=== PATIENT | male | born 1965 ===

== ENCOUNTER 2017-08-26 23:15 | Emergency (ER) | payer MEDICAID, OTHER ==
[2017-08-26 23:15] VITALS: BMI 27.1
--- NOTE | 2017-08-26 23:19 | ED PDOC ---
"Arrival/HPI <Zaid Ni - Last Filed: 08/26/17 23:34> - General Historian: Patient <Chidi Theodore - Last Filed: 08/27/17 15:10> - General Time Seen by Provider: 08/26/17 23:17 - History of Present Illness Narrative History of Present Illness (Text): 08/26/17 23:18 52 y/o male, pmh including dm/htn/hyperlipidemia, nkda, c/o epigastric pain and vomiting x 5 days. Pt. stated that he is insulin dependent, out of the syringes since 08/03/2017, here because he has been vomiting with epigastric pain, no night sweat, no dizziness, no tearing pain, no numbness or tingling, no rash, no dizziness, no change in vision, no other medical or psychological complaints. (Chidi Theodore) Past Medical History - Provider Review Nursing Documentation Reviewed: Yes - Infectious Disease Hx of Infectious Diseases: None - Tetanus Immunization Tetanus Immunization: Unknown - Cardiac Hx Hypertension: Yes - Pulmonary Hx Asthma: Yes - Endocrine/Metabolic Hx Diabetes Mellitus Type 2: Yes - Hematological/Oncological Hx Blood Transfusions: No Hx Blood Transfusion Reaction: No - Musculoskeletal/Rheumatological Hx Falls: No - Psychiatric Hx Depression: Yes Hx Emotional Abuse: No Hx Physical Abuse: No Hx Substance Use: No - Surgical History Hx Appendectomy: Yes Hx Inguinal Hernia Repair: Yes Hx Orthopedic Surgery: Yes (knee) - Anesthesia Hx Anesthesia Reactions: No Hx Malignant Hyperthermia: No - Suicidal Assessment Feels Threatened In Home Enviroment: No <Chidi Theodore - Last Filed: 08/27/17 15:10> Family/Social History - Physician Review Nursing Documentation Reviewed: Yes Family/Social History: Unknown Family HX Smoking Status: Current Some Days Smoker Hx Alcohol Use: No Hx Substance Use: No Substance used: marijuana Amount: 1 Hx Substance Use Treatment: No <Chidi Theodore - Last Filed: 08/27/17 15:10> Allergies/Home Meds <Zaid Ni - Last Filed: 08/26/17 23:34> <Chidi Theodore - Last Filed: 08/27/17 15:10> Allergies/Adverse Reactions: Allergies No Known Allergies Allergy (Verified 11/29/14 17:13) Home Medications: Home Meds Medication Instructions Recorded Confirmed Insulin Human Regular 0 unit SC BID 02/04/12 11/29/14 Review of Systems - Review of Systems Constitutional: absent: Fatigue, Fevers Eyes: absent: Vision Changes ENT: absent: Hearing Changes Respiratory: absent: SOB, Cough Cardiovascular: absent: Chest Pain Gastrointestinal: Abdominal Pain, Nausea, Vomiting. absent: Diarrhea Musculoskeletal: absent: Arthralgias Skin: absent: Rash Neurological: absent: Headache, Dizziness Psychiatric: absent: Anxiety, Depression <Chidi Theodore - Last Filed: 08/27/17 15:10> Physical Exam Vital Signs Reviewed: Yes Temperature: Afebrile Blood Pressure: Normal Pulse: Tachycardic Respiratory Rate: Normal Appearance: Positive for: Well-Appearing, Non-Toxic Pain Distress: Moderate Mental Status: Positive for: Alert and Oriented X 3 - Systems Exam Head: Present: Atraumatic, Normocephalic Pupils: Present: PERRL Extroacular Muscles: Present: EOMI Conjunctiva: Present: Normal Mouth: Present: Moist Mucous Membranes Neck: Present: Normal Range of Motion Respiratory/Chest: Present: Clear to Auscultation, Good Air Exchange. No: Respiratory Distress, Accessory Muscle Use Cardiovascular: Present: Regular Rate and Rhythm, Normal S1, S2. No: Murmurs Abdomen: Present: Tenderness (epigastric), Normal Bowel Sounds. No: Distention , Peritoneal Signs, Rebound, Guarding Back: Present: Normal Inspection Upper Extremity: Present: Normal Inspection. No: Cyanosis, Edema Lower Extremity: Present: Normal Inspection. No: Edema Neurological: Present: GCS=15, CN II-XII Intact, Speech Normal, Motor Func Grossly Intact, Gait Normal, Memory Normal Skin: Present: Warm, Dry, Normal Color. No: Rashes Psychiatric: Present: Alert, Oriented x 3, Normal Insight, Normal Concentration <Chidi Theodore - Last Filed: 08/27/17 15:10> Vital Signs Temp Pulse Resp BP Pulse Ox 08/27/17 03:07 98.0 F 84 18 115/80 96 08/27/17 01:25 85 18 110/82 97 08/26/17 23:25 97.7 F 107 H 18 106/78 98 Medical Decision Making <Zaid Ni - Last Filed: 08/26/17 23:34> - RAD Interpretation Concrete Fence Builder: Radiologist - EKG Interpretation Interpreted by ED Physician: Yes Type: 12 lead EKG <Chidi Theodore - Last Filed: 08/27/17 15:10> ED Course and Treatment: 08/26/17 23:32 -labs/ua/vbg -ekg -chest xray -IVF -Observe and reassess 08/27/17 02:55 -FS: 281 -EKG: NSR @ 80 BPM, no ST elevation or depression, no T wave inversion, no acute changes compared with previous ekg. -Chest xray: no active disease -Sonogram: show no acute findings -CT abdomen and pelvis: Diverticulosis.Large amount of stool in the colon. Correlation with patient's clinical history of constipation is recommended. No mucosal thickening. No other acute findings -Labs show no acute findings with no elevation of bun/creatine or wbc, no anion gap changes. -VBG show normal PH and no elevation of lactic acidosis -Pt. feels completely relief, eating and drinking well, no abdominal pain, request to be discharged home, will discharge home. Pt. has insulin medication but no syringes, will prescribe the syringes. -Discharge home with magnesium citrate, insulin syringes, pepcid, zofran, continue your insulin syringes at home, follow up with your own pmd and GI plus workplace trainer and assessor within 2 days, return to the ER for any new or worsening signs or symptoms. (Chidi Theodore) - Lab Interpretations Lab Results: 08/26/17 23:40 08/26/17 23:40 Lab Results 08/27/17 02:56: POC Glucose (mg/dL) 281 H 08/27/17 02:02: POC Glucose (mg/dL) 305 H 08/26/17 23:40: pO2 53, VBG pH 7.38, VBG pCO2 45.0, VBG HCO3 26.6, VBG Total CO2 28.0, VBG O2 Sat (Calc) 92.7 H, VBG Base Excess 1.0, VBG Potassium 4.3, Sodium 135.0, Chloride 94.0 L, Glucose 461 H*, Lactate 1.7, FiO2 21.0, Venous Blood Potassium 4.3 08/26/17 23:40: WBC 8.8, RBC 5.33, Hgb 15.7, Hct 43.6, MCV 81.8, MCH 29.5, MCHC 36.0, RDW 12.5, Plt Count 263, MPV 13.0 H, Gran % 70.4 H, Lymph % (Auto) 19.8 L , Snyder % (Auto) 7.7 H, Eos % (Auto) 1.6, Baso % (Auto) 0.5, Gran # 6.23, Lymph # 1.8, Snyder # 0.7 H, Eos # 0.1, Baso # 0.04 08/26/17 23:40: Sodium 134, Chloride 94 L, Potassium 4.1, Carbon Dioxide 26, Anion Gap 18, BUN 14, Creatinine 0.9, Est GFR ( Amer) > 60, Est GFR (Non- Af Amer) > 60, Random Glucose 455 H* D, Calcium 10.4, Magnesium 1.8, Total Bilirubin 0.9, AST 44, ALT 48, Alkaline Phosphatase 90, Lactate Dehydrogenase 701 H, Total Creatine Kinase 387 H, CK-MB (CK-2) 2.2, CK-MB (CK-2) % Cancelled, Troponin I < 0.01, NT-Pro-B Natriuret Pep 34.6, Total Protein 8.0, Albumin 4.2, Globulin 3.9, Albumin/Globulin Ratio 1.1, Lipase 30 08/26/17 23:23: POC Glucose (mg/dL) 342 H - RAD Interpretation Radiology Orders: 08/26/17 23:34 CHEST PORTABLE [RAD] Stat GALLBLADDER & PANCREAS [US] Stat 08/27/17 00:26 ABDOMEN & PELVIS [ABD & PELVIS IV CONTRAST ONLY] [CT] Stat -Chest xray: no active pulmonary disease -Sonogram: FINDINGS: Artifacts: Limited due to bowel gas shadowing. Limited due to shadowing from the ribs. Liver: The liver measures 15.5 cm. Echogenic fatty liver. Limited evaluation of the liver due to shadowing. Gallbladder: The gallbladder wall measures 1 mm.There was no right upper quadrant tenderness during the sonographic examination. Correlation with patient's pain medication status is recommended. No gallstones. Common bile duct: The common bile duct measures 4-5 mm. Pancreas: The pancreas is not well-seen. Right kidney: The right kidney measures 9.9 x 6.2 x 6.5 cm. No stones. No hydronephrosis. Aorta: The aorta was not visualized due to bowel gas. Inferior vena cava: The IVC was not visualized due to bowel gas. IMPRESSION: No acute findings. Thank you for allowing us to participate in the care of your patient. Dictated and Authenticated by: Shahriar Wilson MD 08/27/2017 1:56 AM Eastern Time ([place] & [place]) -CT abdomen and pelvis: FINDINGS: Lower thorax: There is bibasilar atelectasis. Small hiatal hernia. ABDOMEN: Liver: Fatty liver. Gallbladder and bile ducts: Unremarkable. No ductal dilation. Pancreas: Unremarkable. No mass. No ductal dilation. Spleen: Unremarkable. No splenomegaly. Adrenals: Unremarkable. No mass. Kidneys and ureters: Unremarkable. No solid mass. No hydronephrosis. Stomach and bowel: Diverticulosis.Large amount of stool in the colon. Correlation with patient's clinical history of constipation is recommended. No mucosal thickening. Appendix: The appendix is not seen. PELVIS: MING GEOVANY | Final Radiology Report CONFIDENTIALITY STATEMENT This report is intended only for use by the referring physician, and only in accordance with law. If you received this in error, call [phone]. Page 2 of 2 Bladder: Unremarkable. Reproductive: Enlarged prostate gland. ABDOMEN and PELVIS: Intraperitoneal space: Unremarkable. No free air. No significant fluid collection. Bones/joints: No acute fracture. No dislocation. Soft tissues: Unremarkable. Vasculature: Pelvic phleboliths. No abdominal aortic aneurysm. Lymph nodes: Unremarkable. No enlarged lymph nodes. IMPRESSION: No acute findings. Thank you for allowing us to participate in the care of your patient. Dictated and Authenticated by: Shahriar Wilson MD 08/27/2017 2:37 AM Eastern Time ([place] & [place]) (Chidi Theodore) - EKG Interpretation EKG Interpretation (Text): 08/27/17 01:17 EKG: NSR @ 80 BPM, no ST elevation or depression, no T wave inversion, no acute changes compared with previous ekg. (Chidi Theodore) - Medication Orders Current Medication Orders: Discontinued Medications Famotidine (Pepcid) 20 mg IVP STAT STA Stop: 08/26/17 23:35 Last Admin: 08/26/17 23:49 Dose: 20 mg IVP Administration Document 08/26/17 23:49 SRAY (Rec: 08/26/17 23:49 SARY [id number]) Charges for Administration # of IVP Administrations 1 Sodium Chloride (Sodium Chloride 0.9%) 1,000 mls @ 999 mls/hr IV .Q1H1M STA Stop: 08/27/17 00:34 Last Admin: 08/26/17 23:50 Dose: 999 mls/hr eMAR Start Stop Document 08/26/17 23:50 SARY (Rec: 08/26/17 23:51 SARY [id number]) Intravenous Solution Start Date 08/26/17 Start Time 23:50 End Date 08/27/17 End time 00:50 Total Infusion Time 60 Sodium Chloride (Sodium Chloride 0.9%) 1,000 mls @ 999 mls/hr IV .Q1H1M STA Stop: 08/27/17 03:12 Last Admin: 08/27/17 02:15 Dose: 999 mls/hr eMAR Start Stop Document 08/27/17 02:15 JOL (Rec: 08/27/17 03:11 JOL [id number]) Intravenous Solution Start Date 08/27/17 Start Time 02:15 End Date 08/27/17 End time 03:16 Total Infusion Time 61 Insulin Human Regular (Humulin R) 8 units SC STAT STA Stop: 08/27/17 00:41 Last Admin: 08/27/17 00:47 Dose: 8 units MAR Blood Glucose Document 08/27/17 00:47 JOL (Rec: 08/27/17 00:47 JOL [id number]) Blood Glucose Finger Stick Blood Glucose (70-120) 455 Subcutaneous Administrations Document 08/27/17 00:47 JOL (Rec: 08/27/17 00:47 [facility] [id number]) Injection Site MAR Injection Site Right Arm Charges for Administration # of Subcutaneous Administrations 1 Magnesium Citrate (Citrate Of Mag) 300 ml PO ONCE ONE Stop: 08/27/17 02:55 Last Admin: 08/27/17 03:11 Dose: 300 ml Morphine Sulfate (Morphine) 4 mg IVP STAT STA Stop: 08/27/17 00:47 Last Admin: 08/27/17 01:01 Dose: 4 mg MAR Pain Assessment Document 08/27/17 01:01 JOGerardo (Rec: 08/27/17 01:01 JO [id number]) Pain Reassessment Is this a pain reassessment? No Sleep Is patient sleeping during reassessment? No Presence of Pain Presence of Pain Yes Pain Scale Used Pain Scale Used Numeric Location Pain Location Body Site Abdomen Description Intensity of Pain at present 8 IVP Administration Document 08/27/17 01:01 JOGerardo (Rec: 08/27/17 01:01 MISSY [id number]) Charges for Administration # of IVP Administrations 1 Ondansetron HCl (Zofran Inj) 4 mg IVP STAT STA Stop: 08/26/17 23:35 Last Admin: 08/26/17 23:52 Dose: 4 mg IVP Administration Document 08/26/17 23:52 SARY (Rec: 08/26/17 23:52 SARY [id number]) Charges for Administration # of IVP Administrations 1 - PA / RV DETAILER / Resident Statement KRYSTIN has reviewed & agrees with the documentation as recorded. <Zaid Ni - Last Filed: 08/26/17 23:34> - PA / RV DETAILER / Resident Statement KRYSTIN has reviewed & agrees with the documentation as recorded. <Chidi Theodore - Last Filed: 08/27/17 15:10> Disposition/Present on Arrival <Zaid Ni - Last Filed: 08/26/17 23:34> - Present on Arrival Any Indicators Present on Arrival: No History of DVT/PE: No History of Uncontrolled Diabetes: Yes Urinary Catheter: No History of Decub. Ulcer: No History Surgical Site Infection Following: None - Disposition Have Diagnosis and Disposition been Completed?: Yes Disposition Time: 02:57 Patient Plan: Discharge <Chidi Theodore - Last Filed: 08/27/17 15:10> - Disposition Diagnosis: Hyperglycemia, Abdominal pain Disposition: HOME/ ROUTINE Condition: IMPROVED Additional Instructions: -Discharge home with magnesium citrate, insulin syringes, pepcid, zofran, continue your insulin syringes at home, follow up with your own pmd and GI plus workplace trainer and assessor within 2 days, return to the ER for any new or worsening signs or symptoms. Prescriptions: Famotidine [Pepcid] 20 mg PO BID #20 tab Ondansetron [Zofran] 4 mg PO Q8H PRN #10 tab PRN Reason: Nausea/Vomiting Syringe Ndl,Insul U-500,0.5ML [Insulin Syringe U-500] 1 each MC DAILY #60 disp.syrin Referrals: PCP,NO [Primary Care Provider] - [place] up [place] [facility] [place] - Follow up with primary Leodan Ballard MD [Staff Provider] - Follow up with primary Kylah Zeng MD [Medical Doctor] - Follow up with primary Forms: WORK NOTE"
[2017-08-26 23:31] VITALS: RESP 18
[2017-08-26] MEDS ORDERED: Sodium Chloride 0.9% 1,000 ML IV STA (23:34)
[2017-08-27 00:08] LABS: BASO # 0.04 K/mm3 (0.0-2.0); BASO % 0.5 % (0.0-3.0); EOS # 0.1 (0.0-0.7); EOS % 1.6 % (1.5-5.0); GRAN # 6.23 (1.4-6.5); GRAN % 70.4 % (50.0-68.0); HEMOGLOBIN 15.7 g/dL (14.0-18.0); LYMPH # 1.8 (1.2-3.4); LYMPH % 19.8 % (22.0-35.0); MEAN CELL VOLUME 81.8 fl (80.0-105.0); MEAN CORPUSCULAR HEMOGLOBIN 29.5 pg (25.0-35.0); MONO # 0.7 (0.1-0.6); MONO % 7.7 % (1.0-6.0); RBC 5.33 10^6/uL (3.5-6.1); RED CELL DISTRIBUTION WIDTH 12.5 % (11.5-14.5); WHITE BLOOD COUNT 8.8 10^3/ul (4.5-11.0)
[2017-08-27 00:26] LABS: B-TYPE NATRIURETIC PEPTIDE 34.6 pg/mL (0-450); TROPONIN I < 0.01 ng/mL
[2017-08-27 00:27] LABS: VENOUS BLOOD GAS PO2 53 mm/Hg (30-55); VENOUS BLOOD PH 7.38 (7.32-7.43)
[2017-08-27 00:34] LABS: ALB/GLOB RATIO 1.1 (1.1-1.8); ALBUMIN 4.2 g/dL (3.0-4.8); ALT/SGPT 48 U/L (7-56); AST/SGOT 44 U/L (17-59); BLOOD UREA NITROGEN 14 mg/dL (7-21); CALCIUM 10.4 mg/dL (8.4-10.5); GFR AFRICAN-AMERICAN > 60; GFR NON-AFRICAN AMERICAN > 60; LIPASE 30 U/L (23-300); MAGNESIUM 1.8 mg/dL (1.7-2.2)
[2017-08-27 00:37] LABS: CK-MB 2.2 ng/mL (0.0-3.6)
[2017-08-27] MEDS ORDERED: Insulin Regular 1 UNITS/0.01 ML ML SC STA (00:40)
[2017-08-27] MEDS ORDERED: Morphine 4 mg/ml ISec IVP STA (00:46)
[2017-08-27] MEDS ORDERED: Iohexol 350 MG/100 ML VIAL ONE (01:14)
--- NOTE | 2017-08-27 01:59 | US ---
EXAM: US Abdomen Limited, Right Upper Quadrant CLINICAL HISTORY: 52 years old, male; Pain; Abdominal pain; Generalized; Additional info: Epigastric pain TECHNIQUE: Real-time ultrasound of the right upper quadrant with image documentation. COMPARISON: No relevant prior studies available. FINDINGS: Artifacts: Limited due to bowel gas shadowing. Limited due to shadowing from the ribs. Liver: The liver measures 15.5 cm. Echogenic fatty liver. Limited evaluation of the liver due to shadowing. Gallbladder: The gallbladder wall measures 1 mm.There was no right upper quadrant tenderness during the sonographic examination. Correlation with patient's pain medication status is recommended. No gallstones. Common bile duct: The common bile duct measures 4-5 mm. Pancreas: The pancreas is not well-seen. Right kidney: The right kidney measures 9.9 x 6.2 x 6.5 cm. No stones. No hydronephrosis. Aorta: The aorta was not visualized due to bowel gas. Inferior vena cava: The IVC was not visualized due to bowel gas. IMPRESSION: No acute findings.
[2017-08-27] MEDS ORDERED: Sodium Chloride 0.9% 1,000 ML IV STA (02:12)
--- NOTE | 2017-08-27 02:37 | CT ---
EXAM: CT Abdomen and Pelvis With Intravenous Contrast CLINICAL HISTORY: 52 years old, male; Pain; Abdominal pain; Generalized; Additional info: Upper abdominal pain with nausea, vomiting and diarrhea since [place]. TECHNIQUE: Axial computed tomography images of the abdomen and pelvis with intravenous contrast. All CT scans at this facility use one or more dose reduction techniques, viz.: automated exposure control; ma/kV adjustment per patient size (including targeted exams where dose is matched to indication; i.e. head); or iterative reconstruction technique. 663 images are submitted. Coronal and sagittal reformatted images were created and reviewed. CONTRAST: 100 mL of omni 350 administered intravenously. COMPARISON: US - GALLBLADDER PANCREAS 2017-08-27 00:59 FINDINGS: Lower thorax: There is bibasilar atelectasis. Small hiatal hernia. ABDOMEN: Liver: Fatty liver. Gallbladder and bile ducts: Unremarkable. No ductal dilation. Pancreas: Unremarkable. No mass. No ductal dilation. Spleen: Unremarkable. No splenomegaly. Adrenals: Unremarkable. No mass. Kidneys and ureters: Unremarkable. No solid mass. No hydronephrosis. Stomach and bowel: Diverticulosis.Large amount of stool in the colon. Correlation with patient's clinical history of constipation is recommended. No mucosal thickening. Appendix: The appendix is not seen. PELVIS: Bladder: Unremarkable. Reproductive: Enlarged prostate gland. ABDOMEN and PELVIS: Intraperitoneal space: Unremarkable. No free air. No significant fluid collection. Bones/joints: No acute fracture. No dislocation. Soft tissues: Unremarkable. Vasculature: Pelvic phleboliths. No abdominal aortic aneurysm. Lymph nodes: Unremarkable. No enlarged lymph nodes. IMPRESSION: No acute findings.
[2017-08-27] MEDS ORDERED: Magnesium Citrate Oral SOL (300 ml) PO ONE (02:54)
[2017-08-27 03:07] VITALS: BP 115/80; PULSE 84; TEMP 98; O2SAT 96
--- NOTE | 2017-08-27 09:35 | RAD ---
HISTORY: epigastric pain COMPARISON: 09/19/2013. FINDINGS: LUNGS: The lungs are well inflated and clear. PLEURA: No significant pleural effusion identified, no pneumothorax apparent. CARDIOVASCULAR: Normal. OSSEOUS STRUCTURES: No significant abnormalities. VISUALIZED UPPER ABDOMEN: Normal. OTHER FINDINGS: None. IMPRESSION: No active pulmonary disease.
--- NOTE | 2017-08-27 19:28 | CARD ---
APPROVED REPORT EKG Measurement Heart [id number] <Conclusion> Normal sinus rhythm Septal infarct, age undetermined Subtle lateral ST elevation Abnormal ECG
== END 2017-08-27 03:30 | disposition home or self-care (01) ==
LOC: ED 23:15
DX: E11.65 Type 2 diabetes mellitus with hyperglycemia (principal); R10.9 Unspecified abdominal pain; I10 Essential (primary) hypertension; E78.5 Hyperlipidemia, unspecified; Z79.4 Long term (current) use of insulin; F17.210 Nicotine dependence, cigarettes, uncomplicated
CPT/HCPCS: 71045; 74177; 76705; 80053; 82550; 82553; 82803; 82948; 83615; 83690; 83735; 83880; 84484; 85025; 93005; 96361; 96374; 96375; 99285; J2270; J2405; J7040; Q9967

== ENCOUNTER 2017-08-28 22:29 | Inpatient (IN) | payer MEDICAID, OTHER ==
--- NOTE | 2017-08-29 00:22 | ED PDOC ---
Arrival/HPI <Zaid Ni - Last Filed: 08/29/17 04:04> - General Historian: Patient, Caregiver EM Caveat: Acuity of Condition - History of Present Illness Time/Duration: Prior to Arrival Symptom Onset: Gradual Symptom Course: Unchanged Quality: Aching, Stabbing, Burning Severity Level: Moderate, Severe Activities at Onset: Rest Context: Home <Neelima Parker - Last Filed: 08/29/17 11:11> - General Chief Complaint: Abdominal Pain Time Seen by Provider: 08/28/17 22:37 - History of Present Illness Narrative History of Present Illness (Text): 08/29/17 00:16 52 y/o male, who presents with abdominal pain and vomiting x 2 days. Pt was evaluated in the ED 2 days ago for similar symptoms and poor glucose control. Pt. is insulin dependent, but has not received insulin due to lack of 'correct' syringes despite receiving a script for them last visit. Pt's chief complaint is acute and shrp stomach pain that has not resolved since last visit and an inability to pass stool. He states he has been vomiting with right lower quadrant pain, no night sweat, no dizziness, no tearing pain, no numbness or tingling, no rash, no dizziness, no change in vision, no other medical or psychological complaints. Pt was given Ranitidine and Zofran last visit and told to follow up with a specialist, although he has not. Pt reports stomach cancer 4 yrs ago and was treated with radiation. 08/29/17 03:39 (Neelima Parker) Past Medical History - Provider Review Nursing Documentation Reviewed: Yes - Travel History Have you recently traveled outside [place] w/in the past 3 mons?: No - Infectious Disease Hx of Infectious Diseases: None - Tetanus Immunization Tetanus Immunization: Unknown - Cardiac Hx Hypertension: Yes - Pulmonary Hx Asthma: Yes - Endocrine/Metabolic Hx Diabetes Mellitus Type 2: Yes - Hematological/Oncological Hx Blood Transfusions: No Hx Blood Transfusion Reaction: No - Musculoskeletal/Rheumatological Hx Falls: No - Psychiatric Hx Depression: Yes Hx Substance Use: No - Surgical History Hx Appendectomy: Yes Hx Orthopedic Surgery: Yes (knee) - Anesthesia Hx Anesthesia Reactions: No Hx Malignant Hyperthermia: No - Suicidal Assessment Feels Threatened In Home Enviroment: No <Neelima Parker - Last Filed: 08/29/17 11:11> Family/Social History - Physician Review Nursing Documentation Reviewed: Yes Family/Social History: No Known Family HX Smoking Status: Current Some Days Smoker Hx Alcohol Use: No Hx Substance Use: No Substance used: marijuana Amount: 1 Hx Substance Use Treatment: No <KeithNeelima Carrillo - Last Filed: 08/29/17 11:11> Allergies/Home Meds <Zaid Ni - Last Filed: 08/29/17 04:04> <Neelima Parker - Last Filed: 08/29/17 11:11> Allergies/Adverse Reactions: Allergies No Known Allergies Allergy (Verified 11/29/14 17:13) Home Medications: Home Meds Medication Instructions Recorded Confirmed Atorvastatin [Lipitor] 10 mg PO DIN 08/28/17 08/28/17 Insulin Regular [HumuLIN R] 8 units SC BID 08/28/17 08/28/17 Insulin Human NPH [Humulin N] 15 units SC DIN 08/28/17 08/28/17 Lisinopril [Zestril] 10 mg PO DAILY 08/28/17 08/28/17 metFORMIN [glucOPHAGE] 500 mg PO BID 08/28/17 08/28/17 Review of Systems - Physician Review All systems were reviewed & negative as marked: Yes - Review of Systems Constitutional: Normal Eyes: Normal ENT: Normal Respiratory: Normal Cardiovascular: Normal Gastrointestinal: Abdominal Pain (RLQ), Stool Changes, Constipation, Nausea, Vomiting (specs of blood in vomit), Appetite Changes Genitourinary Male: Normal Musculoskeletal: Normal Skin: Normal Neurological: Normal Endocrine: Normal Hemo/Lymphatic: Normal Psychiatric: Normal <KeithNeelima Carrillo - Last Filed: 08/29/17 11:11> Physical Exam Vital Signs Reviewed: Yes Temperature: Afebrile Blood Pressure: Normal Pulse: Regular Respiratory Rate: Normal Appearance: Positive for: Non-Toxic, Uncomfortable Pain Distress: Moderate Mental Status: Positive for: Alert and Oriented X 3 Finger Stick Blood Glucose: 346 - Systems Exam Head: Present: Atraumatic, Normocephalic Pupils: Present: PERRL Extroacular Muscles: Present: EOMI Conjunctiva: Present: Normal Mouth: Present: Moist Mucous Membranes Neck: Present: Normal Range of Motion Respiratory/Chest: Present: Clear to Auscultation, Good Air Exchange. No: Respiratory Distress, Accessory Muscle Use Cardiovascular: Present: Regular Rate and Rhythm, Normal S1, S2. No: Murmurs Abdomen: Present: Tenderness, Distention, Normal Bowel Sounds, Rebound. No: Peritoneal Signs, Guarding, McBurney's Point Tender, Rovsing's Sign Present, Hernias, Feeding Tubes, Ostomy Tubes, Mass/Organomegaly, Scars, Other Rectal: Present: Normal Rectal Tone Back: Present: Normal Inspection Upper Extremity: Present: Normal Inspection. No: Cyanosis, Edema Lower Extremity: Present: Normal Inspection. No: Edema Neurological: Present: GCS=15, CN II-XII Intact, Speech Normal Skin: Present: Warm, Dry, Normal Color. No: Rashes Psychiatric: Present: Alert, Oriented x 3, Normal Insight, Normal Concentration <Neelima Parker - Last Filed: 08/29/17 11:11> Vital Signs Temp Pulse Resp BP Pulse Ox 08/29/17 05:30 75 18 114/64 100 08/29/17 03:41 97.1 F L 77 18 138/105 H 100 08/28/17 22:30 90 18 135/85 100 Medical Decision Making <Zaid Ni - Last Filed: 08/29/17 04:04> Re-evaluation Time: 01:00 Reassessment Condition: Unchanged (pain not managed well) - Lab Interpretations I have reviewed the lab results: Yes (Glucose 396) - RAD Interpretation Structural Iron Worker: Radiologist <Neelima Parker - Last Filed: 08/29/17 11:11> ED Course and Treatment: 08/29/17 00:22 52 y/o male, who presents with abdominal pain and vomiting x 2 days. Plan: cbc, cmp, ua, CT abdominal and pelvis Iv fluids pain and emesis management 08/29/17 00:52 Despite toradol 30mg ivp and morphine 4mg ivp, pt continues to have intractable abdominal pain Blood glucose of 396 on labs, 6 units of reg insulin administered Dr. Jefferson contacted and resident notified; admission to med/surg for observation and further evaluation (Neelima Parker) - Lab Interpretations Lab Results: 08/28/17 22:55 08/28/17 22:55 Lab Results 08/29/17 03:32: POC Glucose (mg/dL) 317 H 08/29/17 00:42: POC Glucose (mg/dL) 323 H 08/28/17 22:55: Sodium 135, Potassium 4.1, Chloride 93 L, Carbon Dioxide 26, Anion Gap 21 H, BUN 22 H, Creatinine 1.0, Est GFR ( Amer) > 60, Est GFR ( Non-Af Amer) > 60, Random Glucose 396 H*, Calcium 10.4, Total Bilirubin 1.0, AST 54, ALT 45, Alkaline Phosphatase 96, Total Protein 8.7 H, Albumin 4.5, Globulin 4.2, Albumin/Globulin Ratio 1.1 08/28/17 22:55: WBC 11.0 D, RBC 5.41, Hgb 15.9, Hct 45.0, MCV 83.2, MCH 29.4, MCHC 35.3, RDW 12.6, Plt Count 268, MPV 12.9 H, Gran % 76.5 H, Lymph % (Auto) 14.6 L, [place] % (Auto) 7.3 H, Eos % (Auto) 1.3 L, Baso % (Auto) 0.3, Gran # 8.42 H, Lymph # 1.6, [place] # 0.8 H, Eos # 0.1, Baso # 0.03 - RAD Interpretation Narrative RAD Interpretations (Text): 08/29/17 11:01 CT abdominal and pelvis w/o contrast unchanged since last scan 2 days ago ( Neelima Parker) Radiology Orders: 08/29/17 00:30 ABDOMEN & PELVIS [ABD & PELVIS W/O PO OR IV CONT] [CT] Stat - Medication Orders Current Medication Orders: Atorvastatin Calcium (Lipitor) 10 mg PO DIN [facility] Docusate Sodium (Colace) 100 mg PO DAILY [facility] Last Admin: 08/29/17 09:44 Dose: Not Given Non-Admin Reason: Patient Refused Sodium Chloride (Sodium Chloride 0.9%) 1,000 mls @ 125 mls/hr IV .Q8H [facility] Last Admin: 08/29/17 04:50 Dose: 125 mls/hr eMAR Start Stop Document 08/29/17 04:50 YP (Rec: 08/29/17 05:45 [facility] Intravenous Solution Start Date 08/29/17 Start Time 04:50 Insulin Human Lispro (Humalog Low) 0 units SC ACHS [facility] PRN Reason: Protocol Last Admin: 08/29/17 09:49 Dose: Not Given Non-Admin Reason: Blood Sugar Parameter MAR Blood Glucose Document 08/29/17 09:49 (Rec: 08/29/17 09:49 [id number] Blood Glucose Finger Stick Blood Glucose (70-120) 271 Insulin Human NPH (Humulin N) 15 units SC DIN [facility] Insulin Human Regular (Humulin R) 8 units SC ACBD [facility] Last Admin: 08/29/17 09:49 Dose: Not Given Non-Admin Reason: Patient Refused MAR Blood Glucose Document 08/29/17 09:49 (Rec: 08/29/17 09:49 [place] [id number]) Blood Glucose Finger Stick Blood Glucose (70-120) 271 Lisinopril (Zestril) 10 mg PO DAILY [facility] Last Admin: 08/29/17 10:57 Dose: 10 mg Metoclopramide HCl (Reglan) 10 mg IVP Q8 [facility] Last Admin: 08/29/17 09:44 Dose: 10 mg IVP Administration Document 08/29/17 09:44 (Rec: 08/29/17 09:45 [id number] Charges for Administration # of IVP Administrations 1 Morphine Sulfate (Morphine) 1 mg IVP Q6H PRN PRN Reason: Pain, moderate (4-7) Ondansetron HCl (Zofran Inj) 2 mg IVP Q6 PRN PRN Reason: Nausea/Vomiting Pantoprazole Sodium (Protonix Ec Tab) 40 mg PO 0600 [facility] Discontinued Medications Sodium Chloride (Sodium Chloride 0.9%) 1,000 mls @ 999 mls/hr IV .Q1H1M STA Stop: 08/29/17 01:29 Last Admin: 08/29/17 00:38 Dose: 999 mls/hr eMAR Start Stop Document 08/29/17 00:38 EMA (Rec: 08/29/17 00:38 [facility] [place] [facility] [id number] Intravenous Solution Start Date 08/29/17 Start Time 00:38 Insulin Human Regular (Humulin R) 6 units SC ONCE STA Stop: 08/29/17 02:37 Last Admin: 08/29/17 03:41 Dose: 6 units Subcutaneous Administrations Document 08/29/17 03:41 YP (Rec: 08/29/17 03:41 YP [facility]) Injection Site MAR Injection Site Left Abdomen Charges for Administration # of Subcutaneous Administrations 1 Ketorolac Tromethamine (Toradol) 30 mg IVP STAT STA Stop: 08/29/17 00:53 Last Admin: 08/29/17 01:17 Dose: 30 mg MAR Pain Assessment Document 08/29/17 01:17 EMA (Rec: 08/29/17 01:18 EMA [facility] [id number]) Pain Reassessment Is this a pain reassessment? Yes Sleep Is patient sleeping during reassessment? No Presence of Pain Presence of Pain Yes Location Pain Location Body Site Abdomen IVP Administration Document 08/29/17 01:17 EMA (Rec: 08/29/17 01:18 EMA [facility] [id number]) Charges for Administration # of IVP Administrations 1 Morphine Sulfate (Morphine) 4 mg IVP STAT STA Stop: 08/29/17 02:33 Last Admin: 08/29/17 03:41 Dose: 4 mg IVP Administration Document 08/29/17 03:41 YP (Rec: 08/29/17 03:41 YP [facility]) Charges for Administration # of IVP Administrations 1 Ondansetron HCl (Zofran Inj) 4 mg IVP STAT STA Stop: 08/29/17 00:52 Last Admin: 08/29/17 01:17 Dose: 4 mg IVP Administration Document 08/29/17 01:17 EMA (Rec: 08/29/17 01:17 EMA [facility] [id number]) Charges for Administration # of IVP Administrations 1 - PA / [employer] / Resident Statement / has reviewed & agrees with the documentation as recorded. / has examined the patient and agrees with the treatment plan. <Zaid Ni - Last Filed: 08/29/17 04:04> Disposition/Present on Arrival <Zaid Ni - Last Filed: 08/29/17 04:04> - Present on Arrival Any Indicators Present on Arrival: No History of DVT/PE: No History of Uncontrolled Diabetes: Yes Urinary Catheter: No History of Decub. Ulcer: No History Surgical Site Infection Following: None - Disposition Have Diagnosis and Disposition been Completed?: Yes Disposition Time: 03:50 (resident and Dr. Jefferson contacted) Patient Plan: Observation <Neelima Parker - Last Filed: 08/29/17 11:11> - Disposition Diagnosis: Vomiting, Hyperglycemia, Intractable abdominal pain Disposition: HOSPITALIZED Patient Problems: Current Active Problems Problem Status Onset Hyperglycemia Acute Intractable abdominal pain Acute Vomiting Acute Condition: FAIR
[2017-08-29] MEDS ORDERED: Sodium Chloride 0.9% 1,000 ML IV STA (00:29)
[2017-08-29 01:02] LABS: BASO # 0.03 K/mm3 (0.0-2.0); BASO % 0.3 % (0.0-3.0); EOS # 0.1 (0.0-0.7); EOS % 1.3 % (1.5-5.0); GRAN # 8.42 (1.4-6.5); GRAN % 76.5 % (50.0-68.0); HEMOGLOBIN 15.9 g/dL (14.0-18.0); LYMPH # 1.6 (1.2-3.4); LYMPH % 14.6 % (22.0-35.0); MEAN CELL VOLUME 83.2 fl (80.0-105.0); MEAN CORPUSCULAR HEMOGLOBIN 29.4 pg (25.0-35.0); MEAN CORPUSCULAR HGB CONC 35.3 g/dl (31.0-37.0); MEAN PLATELET VOLUME 12.9 fl (7.0-11.0); MONO # 0.8 (0.1-0.6); MONO % 7.3 % (1.0-6.0); RBC 5.41 10^6/uL (3.5-6.1); RED CELL DISTRIBUTION WIDTH 12.6 % (11.5-14.5)
[2017-08-29 01:42] LABS: ALB/GLOB RATIO 1.1 (1.1-1.8); ALBUMIN 4.5 g/dL (3.0-4.8); ALT/SGPT 45 U/L (7-56); AST/SGOT 54 U/L (17-59); BLOOD UREA NITROGEN 22 mg/dL (7-21); CALCIUM 10.4 mg/dL (8.4-10.5); GFR AFRICAN-AMERICAN > 60; GFR NON-AFRICAN AMERICAN > 60
--- NOTE | 2017-08-29 02:02 | CT ---
EXAM: CT Abdomen and Pelvis Without Intravenous Contrast CLINICAL HISTORY: 52 years old, male; Pain; Abdominal pain; Generalized TECHNIQUE: Axial computed tomography images of the abdomen and pelvis without intravenous contrast. All CT scans at this facility use one or more dose reduction techniques, viz.: automated exposure control; ma/kV adjustment per patient size (including targeted exams where dose is matched to indication; i.e. head); or iterative reconstruction technique. Coronal and sagittal reformatted images were created and reviewed. COMPARISON: CT - ABD PELVIS IV CONTRAST ONLY 2017-08-27 01:47 FINDINGS: Limitations: Lack of intravenous contrast. Lower thorax: Probable small hiatal hernia. Mild mural thickening vs underdistention of distal esophagus. ABDOMEN: Liver: Fatty infiltration. Gallbladder and bile ducts: No calcified stones. No ductal dilation. Pancreas: Unremarkable. No ductal dilation. Spleen: No splenomegaly. Adrenals: No mass. Kidneys and ureters: No renal calculi. No hydronephrosis. Stomach and bowel: Few scattered diverticula within colon. No associated inflammatory stranding. No definite mural thickening. No obstruction. Appendix: No findings to suggest acute appendicitis. PELVIS: Bladder: Unremarkable. No stones. Reproductive: Unremarkable as visualized. ABDOMEN and PELVIS: Intraperitoneal space: No significant fluid collection. No free air. Bones/joints: Mild degenerative changes of spine. No acute fracture. Soft tissues: Unremarkable. Vasculature: Unremarkable. No aneurysm. Lymph nodes: No pathologically enlarged lymph nodes. IMPRESSION: 1. Diverticulosis without definite CT evidence of diverticulitis. 2. Incidental/non-acute findings are described above.
[2017-08-29] MEDS ORDERED: Morphine 5 MG/ML SYRINGE IVP STA (02:32)
[2017-08-29] MEDS ORDERED: Insulin Regular 1 UNITS/0.01 ML ML SC STA (02:36)
--- NOTE | 2017-08-29 04:06 | CP.PCM.HP ---
History of Present Illness - History of Present Illness History of Present Illness: 52 y/o male with past medical history of hypertension, diabetes, hypercholestrolemia, diabetic gastroparesis, and gastric cancer presents the ED with abdominal pain and vomiting for the past 2 days. Patient states he was seen in the ED 2 days ago for similar symptoms and high blood sugar. Patient is insulin dependent, but has not received insulin due to lack of 'correct' syringes despite receiving a script for them during the last visit. Patient states that along with the stomach pain which is located in the right lower quadrant, that he has not had a bowel movement in several days. The vomiting has been non bloody, non bilious. Patient denies any chest pain, fever chills, sore throat, recent illness, diarrhea, or any other complaints at this time. PMH: hypertension, diabetes, hypercholestrolemia, diabetic gastroparesis, and gastric cancer Allergies: NKDA Social: denies alcohol or illicit drug use, occasional tobacco use Family Hx:non contributory Medications: Lipitor, Insulin, Lisinopril Present on Admission - Present on Admission Any Indicators Present on Admission: No Review of Systems - Constitutional Constitutional: absent: Chills, Fever, Headache - Respiratory Respiratory: absent: Cough - Gastrointestinal Gastrointestinal: Abdominal Pain, Vomiting Past Patient History - Infectious Disease Hx of Infectious Diseases: None - Tetanus Immunizations Tetanus Immunization: Unknown - Past Social History Smoking Status: Current Some Days Smoker - CARDIAC Hx Hypertension: Yes - PULMONARY Hx Asthma: Yes - ENDOCRINE/METABOLIC Hx Diabetes Mellitus Type 2: Yes - HEMATOLOGICAL/ONCOLOGICAL Hx Blood Transfusions: No Hx Blood Transfusion Reaction: No - MUSCULOSKELETAL/RHEUMATOLOGICAL Hx Falls: No - PSYCHIATRIC Hx Depression: Yes Hx Substance Use: No - SURGICAL HISTORY Hx Appendectomy: Yes Hx Orthopedic Surgery: Yes (knee) - ANESTHESIA Hx Anesthesia Reactions: No Hx Malignant Hyperthermia: No Meds Allergies/Adverse Reactions: Allergies Allergy/AdvReac Type Severity Reaction Status Date / Time No Known Allergies Allergy Verified 11/29/14 17:13 Physical Exam - Constitutional Appears: Non-toxic, No Acute Distress - Eye Exam Eye Exam: Normal appearance - Respiratory Exam Respiratory Exam: Clear to Auscultation Bilateral, NORMAL BREATHING PATTERN - Cardiovascular Exam Cardiovascular Exam: REGULAR RHYTHM, +S1, +S2 - GI/Abdominal Exam GI & Abdominal Exam: Distended - Extremities Exam Extremities exam: Positive for: pedal pulses present Results - Vital Signs Recent Vital Signs: Last Vital Signs Temp 97.1 F L 08/29/17 03:41 Pulse 77 08/29/17 03:41 Resp 18 08/29/17 03:41 BP 138/105 H 08/29/17 03:41 Pulse Ox 100 08/29/17 03:41 - Labs Result Diagrams: 08/28/17 22:55 08/28/17 22:55 Labs: Laboratory Results - last 24 hr 08/28/17 08/28/17 08/29/17 22:55 22:55 00:42 WBC 11.0 D RBC 5.41 Hgb 15.9 Hct 45.0 MCV 83.2 MCH 29.4 MCHC 35.3 RDW 12.6 Plt Count 268 MPV 12.9 H Gran % 76.5 H Lymph % (Auto) 14.6 L [place] % (Auto) 7.3 H Eos % (Auto) 1.3 L Baso % (Auto) 0.3 Gran # 8.42 H Lymph # 1.6 [place] # 0.8 H Eos # 0.1 Baso # 0.03 Sodium 135 Potassium 4.1 Chloride 93 L Carbon Dioxide 26 Anion Gap 21 H BUN 22 H Creatinine 1.0 Est GFR ( Amer) > 60 Est GFR (Non-Af Amer) > 60 POC Glucose (mg/dL) 323 H Random Glucose 396 H* Calcium 10.4 Total Bilirubin 1.0 AST 54 ALT 45 Alkaline Phosphatase 96 Total Protein 8.7 H Albumin 4.5 Globulin 4.2 Albumin/Globulin Ratio 1.1 08/29/17 03:32 WBC RBC Hgb Hct MCV MCH MCHC RDW Plt Count MPV Gran % Lymph % (Auto) [place] % (Auto) Eos % (Auto) Baso % (Auto) Gran # Lymph # [place] # Eos # Baso # Sodium Potassium Chloride Carbon Dioxide Anion Gap BUN Creatinine Est GFR ( Amer) Est GFR (Non-Af Amer) POC Glucose (mg/dL) 317 H Random Glucose Calcium Total Bilirubin AST ALT Alkaline Phosphatase Total Protein Albumin Globulin Albumin/Globulin Ratio Assessment & Plan - Assessment and Plan (Free Text) Assessment: 52 y/o male with past medical history of hypertension, diabetes, hypercholestrolemia, diabetic gastroparesis, and gastric cancer presents the ED with abdominal pain and vomiting for the past 2 days. Plan: 1. Abdominal Pain with Vomiting -EKG pending official read -xray pending official read -CT abdomen pelvis: Diverticulosis with no evidence of diverticulitis -NS@125 -Zofran -morphine given in ED -toradol given in ED -Reglan IV Q8 -advanced diet as tolerated -lipase pending -morphine PRN 2. DM -glucose elevated -continue to monitor -Insulin sliding scale low 3. HLD -continue home statin 4. HTN -continue home lisinopril GI/DVT -Protonix -SCD
[2017-08-29] MEDS: Sodium Chloride 0.9% 1,000 ML IV SCH ×2 (04:50→12:05)
[2017-08-29] MEDS ORDERED: Pantoprazole 40 mg EC Tab PO SCH (06:00)
[2017-08-29 06:07] LABS: PH,URINE 5.5 (4.7-8.0); URINE BILIRUBIN NEGATIVE (NEGATIVE); URINE BLOOD NEGATIVE (NEGATIVE); URINE GLUCOSE (UA) >=1000 mg/dL (NEGATIVE); URINE LEUKOCYTE ESTERASE NEGATIVE Leu/uL (NEGATIVE); URINE NITRATE NEGATIVE (NEGATIVE); URINE PROTEIN NEGATIVE mg/dL (<30 mg/dL); URINE UROBILINOGEN 0.2 E.U./dL (<1 E.U./dL)
[2017-08-29 06:11] LABS: URINE APPEARANCE CLEAR (CLEAR); URINE COLOR YELLOW (YELLOW)
[2017-08-29] MEDS ORDERED: Morphine 2 mg/ml ISec IVP PRN (06:23)
[2017-08-29] MEDS ORDERED: Insulin Lispro (HUMAlog) HIGH Coverage SC SCH (07:30)
[2017-08-29 08:40] VITALS: RESP 20
[2017-08-29] MEDS: Insulin Lispro (humaLOG) LOW Coverage SC SCH ×3 (09:49→17:22)
[2017-08-29] MEDS: Insulin Regular 1 UNITS/0.01 ML ML SC SCH ×2 (09:49→17:18)
[2017-08-29] MEDS ORDERED: POLYETHYLENE GLYCOL 3350 17 GM/Dose PACKET PO SCH (12:00)
[2017-08-29 14:01] VITALS: BMI 33.7
[2017-08-29] MEDS: Insulin Human NPH 1 UNITS/0.01 ML SC SCH (17:16)
[2017-08-29] MEDS: POLYETHYLENE GLYCOL 3350 17 GM/Dose PACKET PO SCH (17:22)
--- NOTE | 2017-08-29 23:04 | CON ---
DATE: 08/29/2017 GASTROENTEROLOGY CONSULTATION REQUESTING PHYSICIAN: Dr. Rico. REASON FOR CONSULTATION: I have been asked to see this 52-year-old male with longstanding history of poorly-controlled diabetes mellitus, hypertension, gastroparesis for many years, hypercholesterolemia, history of some type of gastric malignancy 5 years ago treated with radiation therapy with subsequent cure, comes to the hospital with 1 week of abdominal pain, vomiting. Patient states that he has not had any bowel movements in over a week. He denies any hematemesis or rectal bleeding. Patient is an insulin-dependent diabetic, but has not taken his insulin over the last week due to not having insulin syringes. Patient admits to some abdominal cramps. PAST MEDICAL HISTORY: As above. Again, he has a history of noncompliant diabetes mellitus, on insulin; hypertension; diabetic gastroparesis; gastric malignancy, treated with radiation therapy 5 years ago. SOCIAL HISTORY: He denies alcohol use. He smokes less than half pack of cigarettes per day. FAMILY HISTORY: Noncontributory. MEDICATIONS: At home include lisinopril, insulin, and Lipitor. PHYSICAL EXAMINATION: GENERAL: A well-developed male, lying in bed, in no acute distress. VITAL SIGNS: Reveal temperature of 97.8, blood pressure 136/88, heart rate of 84. BMI is 31.1. HEENT: Reveals sclerae to be white. Conjunctivae pink. Oral mucosa is moist. NECK: Supple. CHEST: Reveals lungs to be clear. HEART: Exam reveals a regular rate and rhythm. ABDOMEN: Soft. No scars, nontender, no mass. EXTREMITIES: Show no edema. LABORATORY DATA: Reveals white blood cell count 11, hemoglobin 15.9, hematocrit of 45, platelet count of 268,000. Chemistries reveal blood sugar 263, BUN 22, creatinine 1, bicarb of 26. AST, ALT, alk phos were all normal. CT scan of the abdomen and pelvis reveals diverticulosis throughout the colon. There is no evidence of gastric distention or bowel obstruction. IMPRESSION: A 52-year-old male with longstanding history of diabetic gastroparesis with a week of nausea, vomiting, abdominal pain, and constipation. CT scan of the abdomen and pelvis does not reveal a dilated stomach or small bowel obstruction. 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 Patient states that he had a repeat endoscopy after treatment and there was no evidence of recurrent disease. RECOMMENDATIONS: 1. I will increase the patient's Reglan to 10 mg IV a.c. and at bedtime. 2. I will increase his MiraLax to 17 g twice a day. 3. Slow diet advancement if his vomiting subsides. Leodan Ballard MD
[2017-08-30] MEDS: Insulin Lispro (humaLOG) LOW Coverage SC SCH ×5 (04:09→22:05)
[2017-08-30] MEDS: Sodium Chloride 0.9% 1,000 ML IV SCH ×2 (04:12→05:31)
[2017-08-30] MEDS: Insulin Regular 1 UNITS/0.01 ML ML SC SCH ×2 (08:54→16:34)
[2017-08-30] MEDS: POLYETHYLENE GLYCOL 3350 17 GM/Dose PACKET PO SCH ×2 (09:50→17:14)
--- NOTE | 2017-08-30 12:01 | CP.PCM.PN ---
<Erica Mancilla - Last Filed: 08/30/17 13:24> Subjective - Date & Time of Evaluation Date of Evaluation: 08/30/17 Time of Evaluation: 11:53 - Subjective Subjective: Erica Mancilla, PGY1, Medicine Progress Note for Dr Rico: Patient seen and examined at bedside. Pt had 2 episodes of nonbloody emesis overnight. Pt still reports lower abdominal pain and his last BM was 9 days ago. Denies fever, chills, cp, sob, leg swelling. Objective - Vital Signs/Intake and Output Vital Signs (last 24 hours): Temp Pulse Resp BP Pulse Ox 99.0 F 90 20 131/97 H 98 08/30/17 07:30 08/30/17 09:50 08/30/17 07:30 08/30/17 09:50 08/30/17 07:30 Intake and Output: 08/30/17 08/30/17 06:59 18:59 Intake Total 840 Balance 840 - Medications Medications: Current Medications Atorvastatin Calcium (Lipitor) 10 mg PO DIN [facility] TO [facility] Last Admin: 08/29/17 17:19 Dose: Not Given Bisacodyl (Dulcolax) 10 mg RC DAILY [facility] TO [facility] Docusate Sodium (Colace) 100 mg PO DAILY [facility] Last Admin: 08/30/17 09:50 Dose: 100 mg Sodium Chloride (Sodium Chloride 0.9%) 1,000 mls @ 125 mls/hr IV .Q8H [facility]END[facility] TO [facility] Last Admin: 08/30/17 05:31 Dose: 125 mls/hr Insulin Human Lispro (Humalog Low) 0 units SC [facility] PENDING SALE TO [facility] PRN Reason: Protocol Last Admin: 08/30/17 08:55 Dose: 1 units Insulin Human NPH (Humulin N) 15 units SC DIN [facility]END[facility] SALE TO [facility] Last Admin: 08/29/17 17:16 Dose: Not Given Insulin Human Regular (Humulin R) 8 units SC ACBD PEND[facility] SALE TO [facility] Last Admin: 08/30/17 08:54 Dose: 8 units Ketorolac Tromethamine (Toradol) 15 mg IVP Q6H PRN PRN Reason: Pain, moderate (4-7) Lisinopril (Zestril) 10 mg PO DAILY [facility] Last Admin: 08/30/17 09:50 Dose: 10 mg Metoclopramide HCl (Reglan) 10 mg IVP [facility] PEND[facility] SALE TO [facility] Last Admin: 08/30/17 08:57 Dose: 10 mg Ondansetron HCl (Zofran Inj) 2 mg IVP Q6 PRN PRN Reason: Nausea/Vomiting Last Admin: 08/29/17 14:44 Dose: 2 mg Pantoprazole Sodium (Protonix Ec Tab) 40 mg PO 0600 [facility] Last Admin: 08/30/17 05:25 Dose: 40 mg Polyethylene Glycol (Miralax) 17 gm PO BID [facility] Last Admin: 08/30/17 09:50 Dose: 17 gm - Constitutional Appears: Non-toxic, No Acute Distress - Head Exam Head Exam: ATRAUMATIC, NORMOCEPHALIC - Eye Exam Eye Exam: EOMI, PERRL. absent: Conjunctival injection, Scleral icterus Pupil Exam: NORMAL ACCOMODATION, PERRL - ENT Exam ENT Exam: Mucous Membranes Moist - Neck Exam Neck Exam: Full ROM - Respiratory Exam Respiratory Exam: Clear to Ausculation Bilateral, NORMAL BREATHING PATTERN. absent: Chest Wall Tenderness, Rhonchi, Wheezes, Respiratory Distress - Cardiovascular Exam Cardiovascular Exam: RRR, +S1, +S2. absent: Murmur - GI/Abdominal Exam GI & Abdominal Exam: Soft, Tenderness (TTP in suprapubic/lower abdominal area), Normal Bowel Sounds. absent: Firm, Guarding, Rigid, Mass, Rebound - Extremities Exam Extremities Exam: Normal Inspection. absent: Calf Tenderness, Pedal Edema - Back Exam Back Exam: NORMAL INSPECTION - Neurological Exam Neurological Exam: Alert, Awake, Oriented x3 - Psychiatric Exam Psychiatric exam: Agitated, Normal Affect - Skin Skin Exam: Dry, Normal Color, Warm Assessment and Plan - Assessment and Plan (Free Text) Assessment: 52 y/o male with past medical history of hypertension, diabetes, hypercholestrolemia, diabetic gastroparesis, and gastric cancer, presents to ED with lower abdominal pain and vomiting for the past 2 days: Abdominal Pain with Vomiting 2/2 constipation vs gastroparesis -lipase 26 -morphine given in ED -CT abdomen pelvis: Diverticulosis with no evidence of diverticulitis -NS@125 -Zofran prn -toradol prn -Reglan IV ACHS -GI on board. Appreciate recs. Pt had a gastric lymphoma treated with radiation 5 years ago? Recommends Reglan and increased miralax bowel regimen. -CLD. Advanced diet as tolerated -No BM in past 9 days. Avoid narcotics. -Added dulcolax daily and one time enema -Cont to monitor DM -glucose elevated. Hgb A1C 13.9 -Insulin sliding scale low. C/w insulin regimen -continue to monitor HLD -continue home statin HTN -continue home lisinopril GI/DVT -Protonix -SCD Discussed with Dr Rico. <Violeta Rico - Last Filed: 08/30/17 16:11> Objective - Vital Signs/Intake and Output Vital Signs (last 24 hours): Temp Pulse Resp BP Pulse Ox 99.0 F 90 20 131/97 H 98 08/30/17 07:30 08/30/17 09:50 08/30/17 07:30 08/30/17 09:50 08/30/17 07:30 Intake and Output: 08/30/17 08/30/17 06:59 18:59 Intake Total 960 Balance 960 - Medications Medications: Current Medications Atorvastatin Calcium (Lipitor) 10 mg PO DIN PENDING SALE TO [facility] Last Admin: 08/29/17 17:19 Dose: Not Given Bisacodyl (Dulcolax) 10 mg RC DAILY [facility]END[facility] SALE TO [facility] Last Admin: 08/30/17 13:06 Dose: 10 mg Docusate Sodium (Colace) 100 mg PO DAILY [facility]END[facility] Last Admin: 08/30/17 09:50 Dose: 100 mg Sodium Chloride (Sodium Chloride 0.9%) 1,000 mls @ 125 mls/hr IV .Q8H PEND[facility] SALE TO [facility] Last Admin: 08/30/17 05:31 Dose: 125 mls/hr Insulin Human Lispro (Humalog Low) 0 units SC [facility]END[facility] PRN Reason: Protocol Last Admin: 08/30/17 13:08 Dose: 1 units Insulin Human NPH (Humulin N) 15 units SC DIN PEND[facility] SALE [facility] Last Admin: 08/29/17 17:16 Dose: Not Given Insulin Human Regular (Humulin R) 8 units SC ACBD PEND[facility] SALE [facility] Last Admin: 08/30/17 08:54 Dose: 8 units Ketorolac Tromethamine (Toradol) 15 mg IVP Q6H PRN PRN Reason: Pain, moderate (4-7) Lisinopril (Zestril) 10 mg PO DAILY [facility] Last Admin: 08/30/17 09:50 Dose: 10 mg Metoclopramide HCl (Reglan) 10 mg IVP A[facility]END[facility] Last Admin: 08/30/17 13:07 Dose: 10 mg Ondansetron HCl (Zofran Inj) 2 mg IVP Q6 PRN PRN Reason: Nausea/Vomiting Last Admin: 08/29/17 14:44 Dose: 2 mg Pantoprazole Sodium (Protonix Ec Tab) 40 mg PO 0600 PEND[facility] S[facility] Last Admin: 08/30/17 05:25 Dose: 40 mg Polyethylene Glycol (Miralax) 17 gm PO BID PEND[facility] SALE [facility] Last Admin: 08/30/17 09:50 Dose: 17 gm - Labs Labs: 08/30/17 14:30 08/30/17 14:30 Attending/Attestation - Attestation I have personally seen and examined this patient.: Yes I have fully participated in the care of the patient.: Yes I have reviewed all pertinent clinical information, including history, physical exam and plan: Yes Notes (Text): 08/30/17 16:06 52 year old male with past medical history of hypertension, diabetes, dyslipidemia and gastroparesis who presented with complaint of abdominal pain, nausea, vomiting and constipation. CT abd/pelvis showed diverticulosis. GI is following. Patient is currently on reglan and toradol prn. He is on miralax and dulcolax with enema is also ordered for today. Still reports nausea with vomiting today, unable to advance diet from liquids at this time. Will follow up with GI recommendations. Violeta Rico MD Hospitalist.
[2017-08-30 15:08] LABS: BASO # 0.03 K/mm3 (0.0-2.0); BASO % 0.4 % (0.0-3.0); EOS # 0.1 (0.0-0.7); GRAN # 5.89 (1.4-6.5); GRAN % 72.5 % (50.0-68.0); HEMOGLOBIN 13.9 g/dL (14.0-18.0); LYMPH # 1.4 (1.2-3.4); LYMPH % 17.5 % (22.0-35.0); MEAN CELL VOLUME 83.5 fl (80.0-105.0); MEAN CORPUSCULAR HEMOGLOBIN 28.7 pg (25.0-35.0); MEAN CORPUSCULAR HGB CONC 34.3 g/dl (31.0-37.0); MEAN PLATELET VOLUME 12.2 fl (7.0-11.0); MONO # 0.7 (0.1-0.6); MONO % 8.6 % (1.0-6.0); RBC 4.85 10^6/uL (3.5-6.1); RED CELL DISTRIBUTION WIDTH 12.3 % (11.5-14.5); WHITE BLOOD COUNT 8.1 10^3/ul (4.5-11.0)
[2017-08-30 15:37] LABS: ALBUMIN 3.4 g/dL (3.0-4.8); ALT/SGPT 42 U/L (7-56); AST/SGOT 24 U/L (17-59); BLOOD UREA NITROGEN 22 mg/dL (7-21); CALCIUM 8.9 mg/dL (8.4-10.5); GFR AFRICAN-AMERICAN > 60; GFR NON-AFRICAN AMERICAN > 60
[2017-08-30] MEDS: Insulin Human NPH 1 UNITS/0.01 ML SC SCH (16:35)
--- NOTE | 2017-08-30 18:17 | PN ---
DATE: 08/30/2017 SUBJECTIVE: The patient is lying in bed. He continues to complain of lower abdominal pain and intermittent vomiting. CT scan of the abdomen on admission to the hospital was negative for any acute changes. He did have diverticulosis without any evidence of diverticulitis. There is no evidence of dilated stomach or bowel obstruction. The patient is asking for the pain medications [id number]. He states that he is nauseous but nursing does not document any episodes of vomiting. PHYSICAL EXAMINATION: VITAL SIGNS: Reveal temperature of 99, blood pressure 131/97, heart rate of 90. HEENT: Reveals sclerae to be white. Conjunctivae pink. NECK: Supple. CHEST: Lungs are clear. HEART: Reveals a regular rate and rhythm. ABDOMEN: Soft, mild suprapubic tenderness. No mass. No rebound. No guarding. EXTREMITIES: Show no edema. LABORATORY DATA: Reveal white blood cell count of 11, hemoglobin 15.9. Chemistries reveal blood sugar of 172. Serum lipase on admission to the hospital was normal. AST, ALT, alk phos were all normal. IMPRESSION: 1. Lower abdominal pain. The patient had negative urinalysis, negative CT scan. Etiology of the abdominal pain is unclear. 2. Gastroparesis. 3. Poorly-controlled diabetes mellitus. RECOMMENDATIONS: 1. I will make the patient n.p.o. for now. 2. Can advance diet if his abdominal pain improves. 3. Continue IV Reglan 10 mg before meals and at bedtime. 4. Continue PPI. Leodan Ballard MD
[2017-08-31 02:32] VITALS: BP 112/76; PULSE 76; TEMP 98.6; O2SAT 96
--- NOTE | 2017-08-31 06:54 | CP.PCM.PN ---
Subjective - Date & Time of Evaluation Date of Evaluation: 08/31/17 Time of Evaluation: 06:48 - Subjective Subjective: S:Nurse Jd called me and told that patient wants to sign out AMA, physician has been called , patient has waited for over 45 minutes, can not wait anymore. I spoke to patient . He states that he has been here for 4 days, no body is doing anything , he will go to his hospital in [place], where they will help him. Has no acute symptoms now. Medical record was reviewed. O: Last Vital Signs 3 Temp 98.6 F 08/31/17 00:29 Pulse 76 08/31/17 00:29 Resp 20 08/31/17 00:29 BP 112/76 08/31/17 00:29 Pulse Ox 96 08/31/17 00:29 Awake , alert, not in distress. Ambulating. LUNGS: Normal breathing pattern . ABD: No distension noted. A:Signing out AMA. Non compliant. P:Explained to him consequences of signing out AMA in presence of nurse Miles. Patient understood, wanted to sign out AMA, did sign papers. Objective - Vital Signs/Intake and Output Vital Signs (last 24 hours): Temp Pulse Resp BP Pulse Ox 98.6 F 76 20 112/76 96 08/31/17 00:29 08/31/17 00:29 08/31/17 00:29 08/31/17 00:29 08/31/17 00:29 Intake and Output: 08/30/17 08/31/17 18:59 06:59 Intake Total 960 0 Balance 960 0 - Medications Medications: Current Medications Atorvastatin Calcium (Lipitor) 10 mg PO DIN [facility] Last Admin: 08/30/17 17:14 Dose: 10 mg Bisacodyl (Dulcolax) 10 mg RC DAILY [facility] Last Admin: 08/30/17 13:06 Dose: 10 mg Docusate Sodium (Colace) 100 mg PO DAILY [facility] Last Admin: 08/30/17 09:50 Dose: 100 mg Sodium Chloride (Sodium Chloride 0.9%) 1,000 mls @ 125 mls/hr IV .Q8H [facility] Last Admin: 08/30/17 05:31 Dose: 125 mls/hr Insulin Human Lispro (Humalog Low) 0 units SC ACHS [facility] PRN Reason: Protocol Last Admin: 08/30/17 22:05 Dose: Not Given Insulin Human NPH (Humulin N) 15 units SC DIN [facility] Last Admin: 08/30/17 16:35 Dose: Not Given Insulin Human Regular (Humulin R) 8 units SC ACBD [facility] Last Admin: 08/30/17 16:34 Dose: Not Given Ketorolac Tromethamine (Toradol) 15 mg IVP Q6H PRN PRN Reason: Pain, moderate (4-7) Last Admin: 08/30/17 22:24 Dose: 15 mg Lisinopril (Zestril) 10 mg PO DAILY [facility] Last Admin: 08/30/17 09:50 Dose: 10 mg Metoclopramide HCl (Reglan) 10 mg IVP ACHS [facility] Last Admin: 08/30/17 21:41 Dose: 10 mg Ondansetron HCl (Zofran Inj) 2 mg IVP Q6 PRN PRN Reason: Nausea/Vomiting Last Admin: 08/29/17 14:44 Dose: 2 mg Pantoprazole Sodium (Protonix Ec Tab) 40 mg PO 0600 [facility] Last Admin: 08/30/17 05:25 Dose: 40 mg Polyethylene Glycol (Miralax) 17 gm PO BID [facility] Last Admin: 08/30/17 17:14 Dose: 17 gm - Labs Labs: 08/30/17 14:30 08/30/17 14:30
--- NOTE | 2017-08-31 16:53 | CP.PCM.DIS ---
Provider - Provider Date of Admission: 08/30/17 13:22 Attending physician: Violeta Rico MD Primary care physician: NO PRIMARY CARE PROVIDER Hospital Course - Lab Results Lab Results: Most Recent Lab Values WBC 8.1 10^3/ul (4.5-11.0) D 08/30/17 14:30 RBC 4.85 10^6/uL (3.5-6.1) 08/30/17 14:30 Hgb 13.9 g/dL (14.0-18.0) L D 08/30/17 14:30 Hct 40.5 % (42.0-52.0) L 08/30/17 14:30 MCV 83.5 fl (80.0-105.0) 08/30/17 14:30 MCH 28.7 pg (25.0-35.0) 08/30/17 14:30 MCHC 34.3 g/dl (31.0-37.0) 08/30/17 14:30 RDW 12.3 % (11.5-14.5) 08/30/17 14:30 Plt Count 220 10^3/uL (120.0-450.0) 08/30/17 14:30 MPV 12.2 fl (7.0-11.0) H 08/30/17 14:30 Gran % 72.5 % (50.0-68.0) H 08/30/17 14:30 Lymph % (Auto) 17.5 % (22.0-35.0) L 08/30/17 14:30 [place] % (Auto) 8.6 % (1.0-6.0) H 08/30/17 14:30 Eos % (Auto) 1.0 % (1.5-5.0) L 08/30/17 14:30 Baso % (Auto) 0.4 % (0.0-3.0) 08/30/17 14:30 Gran # 5.89 (1.4-6.5) 08/30/17 14:30 Lymph # (Auto) 1.4 (1.2-3.4) 08/30/17 14:30 [place] # (Auto) 0.7 (0.1-0.6) H 08/30/17 14:30 Eos # (Auto) 0.1 (0.0-0.7) 08/30/17 14:30 Baso # (Auto) 0.03 K/mm3 (0.0-2.0) 08/30/17 14:30 Sodium 134 mmol/L (132-148) 08/30/17 14:30 Potassium 4.0 mmol/L (3.6-5.0) 08/30/17 14:30 Chloride 99 mmol/L (98-107) 08/30/17 14:30 Carbon Dioxide 26 mmol/L (21-33) 08/30/17 14:30 Anion Gap 13 (10-20) 08/30/17 14:30 BUN 22 mg/dL (7-21) H 08/30/17 14:30 Creatinine 0.9 mg/dl (0.8-1.5) 08/30/17 14:30 Est GFR ( Amer) > 60 08/30/17 14:30 Est GFR (Non-Af Amer) > 60 08/30/17 14:30 POC Glucose (mg/dL) 154 mg/dL (65-110) H 08/30/17 22:03 Random Glucose 141 mg/dL (70-110) H 08/30/17 14:30 Hemoglobin A1c 13.9 % (4.2-6.5) H 08/29/17 05:35 Calcium 8.9 mg/dL (8.4-10.5) 08/30/17 14:30 Total Bilirubin 1.1 mg/dL (0.2-1.3) 08/30/17 14:30 AST 24 U/L (17-59) 08/30/17 14:30 ALT 42 U/L (7-56) 08/30/17 14:30 Alkaline Phosphatase 61 U/L (38-126) 08/30/17 14:30 Total Protein 6.9 g/dL (5.8-8.3) 08/30/17 14:30 Albumin 3.4 g/dL (3.0-4.8) 08/30/17 14:30 Globulin 3.4 gm/dL 08/30/17 14:30 Albumin/Globulin Ratio 1.0 (1.1-1.8) L 08/30/17 14:30 Lipase 26 U/L (23-300) 08/29/17 05:35 Urine Color Yellow (YELLOW) 08/29/17 05:35 Urine Appearance Clear (CLEAR) 08/29/17 05:35 Urine pH 5.5 (4.7-8.0) 08/29/17 05:35 Ur Specific [place] 1.025 (1.005-1.035) 08/29/17 05:35 Urine Protein Negative mg/dL (<30 mg/dL) 08/29/17 05:35 Urine Glucose (UA) >=1000 mg/dL (NEGATIVE) 08/29/17 05:35 Urine Ketones 15 mg/dL (NEGATIVE) H 08/29/17 05:35 Urine Blood Negative (NEGATIVE) 08/29/17 05:35 Urine Nitrate Negative (NEGATIVE) 08/29/17 05:35 Urine Bilirubin Negative (NEGATIVE) 08/29/17 05:35 Urine Urobilinogen 0.2 E.U./dL (<1 E.U./dL) 08/29/17 05:35 Ur Leukocyte Esterase Negative Edie/uL (NEGATIVE) 08/29/17 05:35 Discharge Exam - Head Exam Head Exam: ATRAUMATIC, NORMOCEPHALIC Discharge Plan - Follow Up Plan Condition: FAIR Disposition: AGAINST MEDICAL ADVICE Instructions: Diabetic Gastroparesis (DC) Additional Instructions: - Discussed with patient the risks of AMA and benefits of receiving treatment. Pt however left. Referrals: PCP,NO [Primary Care Provider] -
== END 2017-08-31 07:50 | disposition left against medical advice (07) | DRG 74 ==
LOC: ED 22:29 → ERH 08-29 04:00 → 5RSO 08-29 07:11 → OBSVTOIN 08-30 13:22
PROVIDERS: ADMIT Family Medicine; ATTEND Internal Medicine
DX: E11.43 Type 2 diabetes mellitus with diabetic autonomic (poly)neuropathy (principal); E11.65 Type 2 diabetes mellitus with hyperglycemia; K31.84 Gastroparesis; E78.00 Pure hypercholesterolemia, unspecified; E78.5 Hyperlipidemia, unspecified; F17.210 Nicotine dependence, cigarettes, uncomplicated; I10 Essential (primary) hypertension; J45.909 Unspecified asthma, uncomplicated; K57.90 Diverticulosis of intestine, part unspecified, without perforation or abscess without bleeding; K59.00 Constipation, unspecified; Z79.4 Long term (current) use of insulin; Z79.899 Other long term (current) drug therapy; Z85.028 Personal history of other malignant neoplasm of stomach; Z92.3 Personal history of irradiation; Z85.72 Personal history of non-Hodgkin lymphomas; Z90.49 Acquired absence of other specified parts of digestive tract; Z91.19 Patient's noncompliance with other medical treatment and regimen; R40.2412 Glasgow coma scale score 13-15, at arrival to emergency department

== ENCOUNTER 2017-11-06 09:38 | Emergency (ER) | payer MEDICAID, OTHER ==
[2017-11-06 09:38] VITALS: BMI 33.7
[2017-11-06 10:11] VITALS: TEMP 97.9
[2017-11-06] MEDS ORDERED: Sodium Chloride 0.9% 1,000 ML IV STA (10:28)
--- NOTE | 2017-11-06 10:32 | ED PDOC ---
Arrival/HPI - General Chief Complaint: Dizziness/Lightheaded Time Seen by Provider: 11/06/17 10:17 Historian: Patient - History of Present Illness Narrative History of Present Illness (Text): 11/06/17 10:25 52 year old male, whose PMH includes hypertension and diabetes, who presents to the emergency department complaining of food intolerance, associated with vomiting since 4 days ago. Patient reports he ran out of insulin 4 days ago and has not taken it since then. patient denies any abdominal pain, diarrhea, dysuria, shortness of breath, chest pain, headache, or other complaints. Time/Duration: < week Symptom Onset: Sudden Context: Home Past Medical History - Provider Review Nursing Documentation Reviewed: Yes - Infectious Disease Hx of Infectious Diseases: None - Tetanus Immunization Tetanus Immunization: Unknown - Cardiac Hx Cardiac Disorders: Yes Hx Hypertension: Yes - Pulmonary Hx Respiratory Disorders: Yes Hx Asthma: Yes - Neurological Hx Neurological Disorder: No - HEENT Hx HEENT Disorder: No - Renal Hx Renal Disorder: No - Endocrine/Metabolic Hx Endocrine Disorders: Yes Hx Diabetes Mellitus Type 2: Yes - Hematological/Oncological Hx Blood Disorders: Yes Hx Cancer: Yes - Integumentary Hx Dermatological Disorder: No - Musculoskeletal/Rheumatological Hx Musculoskeletal Disorders: No - Gastrointestinal Hx Gastrointestinal Disorders: Yes Hx Nausea: Yes Hx Vomiting: Yes - Genitourinary/Gynecological Hx Genitourinary Disorders: No - Psychiatric Hx Psychophysiologic Disorder: Yes Hx Depression: Yes Hx Substance Use: No - Surgical History Hx Appendectomy: Yes Hx Orthopedic Surgery: Yes (knee) - Anesthesia Hx Anesthesia: Yes Hx Anesthesia Reactions: No Hx Malignant Hyperthermia: No - Suicidal Assessment Feels Threatened In Home Enviroment: No Family/Social History - Physician Review Nursing Documentation Reviewed: Yes Family/Social History: Unknown Family HX Smoking Status: Current Some Days Smoker Hx Alcohol Use: No Hx Substance Use: No Substance used: marijuana Amount: 1 Hx Substance Use Treatment: No Allergies/Home Meds Allergies/Adverse Reactions: Allergies No Known Allergies Allergy (Verified 11/06/17 10:04) Review of Systems - Physician Review All systems were reviewed & negative as marked: Yes - Review of Systems Constitutional: absent: Fevers Respiratory: absent: SOB Cardiovascular: absent: Chest Pain Gastrointestinal: Nausea, Vomiting, Food Intolerance. absent: Diarrhea Physical Exam Vital Signs Reviewed: Yes Vital Signs Temp Pulse Resp BP Pulse Ox 11/06/17 13:10 72 18 132/78 97 11/06/17 10:06 97.9 F 88 16 117/80 100 Temperature: Afebrile Blood Pressure: Normal Pulse: Regular Respiratory Rate: Normal Appearance: Positive for: Well-Appearing, Non-Toxic, Comfortable Pain Distress: None Mental Status: Positive for: Alert and Oriented X 3 - Systems Exam Head: Present: Atraumatic, Normocephalic Pupils: Present: PERRL Extroacular Muscles: Present: EOMI Conjunctiva: Present: Normal Abdomen: Present: Normal Bowel Sounds. No: Tenderness, Distention, Peritoneal Signs, Rebound, Guarding Neurological: Present: GCS=15, CN II-XII Intact, Speech Normal Skin: Present: Warm, Dry, Normal Color. No: Rashes Psychiatric: Present: Alert, Oriented x 3, Normal Insight, Normal Concentration Medical Decision Making ED Course and Treatment: 11/06/17 Impression: 52 year old male with unremarkable physical exam complaining of food intolerance and vomiting after not taking his insulin for 4 days Plan: -- Labs -- Urinalysis -- Zofran and Sodium Chloride -- Reassess and disposition Progress Notes: 11/06/17 14:31 bicarb 28 no e/o of dka. abd soft no ttp pt requests refill nph 15 U before feeds. - Lab Interpretations Lab Results: 11/06/17 11:10 11/06/17 11:10 Lab Results 11/06/17 12:35: POC Glucose (mg/dL) 272 H 11/06/17 11:10: Sodium 133, Potassium 4.3, Chloride 94 L, Carbon Dioxide 28, Anion Gap 15, BUN 9, Creatinine 0.7 L, Est GFR ( Amer) > 60, Est GFR (Non -Af Amer) > 60, Random Glucose 355 H* D, Calcium 9.8, Total Bilirubin 0.9, AST 27, ALT 29, Alkaline Phosphatase 66, Total Protein 7.9, Albumin 4.2, Globulin 3.7, Albumin/Globulin Ratio 1.1, Lipase 47 11/06/17 11:10: PT 11.6, INR 1.01, APTT 33.6 11/06/17 11:10: WBC 6.6, RBC 5.03, Hgb 14.8, Hct 41.3 L, MCV 82.1, MCH 29.4, MCHC 35.8, RDW 12.9, Plt Count 207, MPV 12.5 H, Gran % 72.2 H, Lymph % (Auto) 18.8 L, [place] % (Auto) 5.9, Eos % (Auto) 2.6, Baso % (Auto) 0.5, Gran # 4.76, Lymph # (Auto) 1.2, [place] # (Auto) 0.4, Eos # (Auto) 0.2, Baso # (Auto) 0.03 11/06/17 10:13: POC Glucose (mg/dL) 311 H I have reviewed the lab results: Yes - Medication Orders Current Medication Orders: Discontinued Medications Sodium Chloride (Sodium Chloride 0.9%) 1,000 mls @ 1,000 mls/hr IV .Q1H [facility] Stop: 11/06/17 11:27 Last Admin: 11/06/17 11:08 Dose: 1,000 mls/hr eMAR Start Stop Document 11/06/17 11:08 [facility] (Rec: 11/06/17 11:14 [facility] [id number]) Intravenous Solution Start Date 11/06/17 Start Time 11:14 End Date 11/06/17 End time 12:14 Total Infusion Time 60 Ondansetron HCl (Zofran Inj) 4 mg IVP STAT STA Stop: 11/06/17 10:29 Last Admin: 11/06/17 11:07 Dose: 4 mg IVP Administration Document 11/06/17 11:07 [facility] (Rec: 11/06/17 11:08 [facility] [id number]) Charges for Administration # of IVP Administrations 1 - Scribe Statement The provider has reviewed the documentation as recorded by the Alphonse Hightower Provider Scribe Attestation: All medical record entries made by the Scribe were at my direction and personally dictated by me. I have reviewed the chart and agree that the record accurately reflects my personal performance of the history, physical exam, medical decision making, and the department course for this patient. I have also personally directed, reviewed, and agree with the discharge instructions and disposition. Disposition/Present on Arrival - Present on Arrival Any Indicators Present on Arrival: No History of DVT/PE: No History of Uncontrolled Diabetes: Yes Urinary Catheter: No History of Decub. Ulcer: No History Surgical Site Infection Following: None - Disposition Have Diagnosis and Disposition been Completed?: Yes Diagnosis: Hyperglycemia, Vomiting Disposition: HOME/ ROUTINE Disposition Time: 01:00 Condition: STABLE Discharge Instructions (ExitCare): Hyperglycemia, Adult (DC), Nausea and Vomiting, Adult (DC) Additional Instructions: please follow up with your doctor. return to er with worsening symptoms or concerns. Prescriptions: Insulin Human NPH [Humulin N] 15 unit SQ TID #1 ml Referrals: [facility] [Outside] - [place] up with [place] [facility] [place] - Follow up with primary Forms: [employer] (Arabic)
[2017-11-06 11:34] LABS: BASO # 0.03 K/mm3 (0.0-2.0); BASO % 0.5 % (0.0-3.0); EOS # 0.2 (0.0-0.7); EOS % 2.6 % (1.5-5.0); GRAN # 4.76 (1.4-6.5); GRAN % 72.2 % (50.0-68.0); HEMOGLOBIN 14.8 g/dL (14.0-18.0); LYMPH # 1.2 (1.2-3.4); LYMPH % 18.8 % (22.0-35.0); MEAN CELL VOLUME 82.1 fl (80.0-105.0); MEAN CORPUSCULAR HEMOGLOBIN 29.4 pg (25.0-35.0); MEAN CORPUSCULAR HGB CONC 35.8 g/dl (31.0-37.0); MEAN PLATELET VOLUME 12.5 fl (7.0-11.0); MONO # 0.4 (0.1-0.6); MONO % 5.9 % (1.0-6.0); RBC 5.03 10^6/uL (3.5-6.1); RED CELL DISTRIBUTION WIDTH 12.9 % (11.5-14.5); WHITE BLOOD COUNT 6.6 10^3/ul (4.5-11.0)
[2017-11-06 12:02] LABS: ALB/GLOB RATIO 1.1 (1.1-1.8); ALBUMIN 4.2 g/dL (3.0-4.8); ALT/SGPT 29 U/L (7-56); AST/SGOT 27 U/L (17-59); BLOOD UREA NITROGEN 9 mg/dL (7-21); CALCIUM 9.8 mg/dL (8.4-10.5); GFR AFRICAN-AMERICAN > 60; GFR NON-AFRICAN AMERICAN > 60; LIPASE 47 U/L (23-300)
[2017-11-06 12:15] LABS: INR 1.01 (0.93-1.08); PARTIAL THROMBOPLASTIN TIME 33.6 Seconds (25.1-36.5); PROTHROMBIN TIME 11.6 SECONDS (9.4-12.5)
[2017-11-06 13:22] VITALS: BP 132/78; PULSE 72; RESP 18; O2SAT 97
== END 2017-11-06 13:22 | disposition home or self-care (01) ==
LOC: ED 09:38
DX: E11.65 Type 2 diabetes mellitus with hyperglycemia (principal); R11.10 Vomiting, unspecified; I10 Essential (primary) hypertension; F17.210 Nicotine dependence, cigarettes, uncomplicated; Z79.4 Long term (current) use of insulin
CPT/HCPCS: 80053; 82948; 83690; 85025; 85610; 85730; 96361; 96374; 99285; J2405; J7040

== ENCOUNTER 2018-05-06 08:21 | Emergency (ER) | payer SELFPAY ==
[2018-05-06 08:21] VITALS: BMI 33.7
[2018-05-06] MEDS ORDERED: Morphine 4 mg/ml ISec IVP STA (08:53)
--- NOTE | 2018-05-06 09:00 | ED PDOC ---
Arrival/HPI - General Chief Complaint: Abdominal Pain Time Seen by Provider: 05/06/18 08:51 Historian: Patient - History of Present Illness Narrative History of Present Illness (Text): 05/06/18 08:55 A 53 year old male, whose past medical history includes hypertension, diabetes, hypercholestrolemia, diabetic gastroparesis, and gastric cancer, presents to the emergency department with complaint of worsening abdominal pain, 1 week duration constipation, 4 day duration vomiting, and dizziness. The patient notes that he experienced one episode of hematemesis. He states that there was a large amount of red blood in the vomitus. Since that first episode he has continued to vomit without any red blood present in the vomitus. The patient also complaints of suprapubic abdominal pain. He states that he has not moved his bowels in 7 days. The patient reports that he has been urinating normally, with some dysuria. He also reports a subjective fever yesterday. The patient denies chills, headache, diarrhea, back pain, neck pain, chest pain, shortness of breath, dyspnea on exertion, cough or any other complaint. PMD: None Time/Duration: 1 week (1 week- constipation), Other (4 days- vomiting) Symptom Onset: Gradual Symptom Course: Worsening Activities at Onset: Rest, Light Context: Home Past Medical History - Provider Review Nursing Documentation Reviewed: Yes - Infectious Disease Hx of Infectious Diseases: None - Tetanus Immunization Tetanus Immunization: Unknown - Cardiac Hx Cardiac Disorders: Yes Hx Hypertension: Yes - Pulmonary Hx Respiratory Disorders: Yes Hx Asthma: Yes - Neurological Hx Neurological Disorder: No - HEENT Hx HEENT Disorder: No - Renal Hx Renal Disorder: No - Endocrine/Metabolic Hx Endocrine Disorders: Yes Hx Diabetes Mellitus Type 2: Yes - Hematological/Oncological Hx Blood Disorders: Yes Hx Cancer: Yes - Integumentary Hx Dermatological Disorder: No - Musculoskeletal/Rheumatological Hx Musculoskeletal Disorders: No - Gastrointestinal Hx Gastrointestinal Disorders: Yes Hx Nausea: Yes Hx Vomiting: Yes Other/Comment: stomach ca - Genitourinary/Gynecological Hx Genitourinary Disorders: No - Psychiatric Hx Psychophysiologic Disorder: Yes Hx Depression: Yes Hx Substance Use: Yes - Surgical History Hx Appendectomy: Yes Hx Orthopedic Surgery: Yes (knee) - Anesthesia Hx Anesthesia: Yes Hx Anesthesia Reactions: No Hx Malignant Hyperthermia: No - Suicidal Assessment Feels Threatened In Home Enviroment: No Family/Social History - Physician Review Nursing Documentation Reviewed: Yes Family/Social History: No Known Family HX Smoking Status: Current Some Days Smoker Hx Alcohol Use: No Hx Substance Use: Yes Substance used: marijuana Amount: 1 Hx Substance Use Treatment: No Allergies/Home Meds Allergies/Adverse Reactions: Allergies No Known Allergies Allergy (Verified 11/06/17 10:04) Review of Systems - Physician Review All systems were reviewed & negative as marked: Yes - Review of Systems Constitutional: Fevers Respiratory: absent: SOB, Cough Cardiovascular: absent: Chest Pain, NUNEZ Gastrointestinal: Abdominal Pain, Vomiting. absent: Diarrhea Musculoskeletal: absent: Back Pain, Neck Pain Neurological: absent: Headache Physical Exam - Physical Exam Narrative Physical Exam (Text): 05/06/18 09:02 Gen: VS reviewed, alert, well developed, well nourished, nontoxic, moderate distress secondary to pain. ENT: Normal pharynx. Eye: EOMI, PERRL. Neck: No JVD, supple, no adenopathy. CV: Regular rate, regular rhythm, no rubs, no murmur, no gallops, S1, S2, pulses equal and strong. Pulm: No distress, clear to auscultation, no wheeze, no rhonchi, breath sounds equal, no rales. Abd: Soft, no guarding, no rebound, no rigidity, normal bowel sounds. Moderate suprapubic tenderness to palpation. Ext: No edema. Skin: Good color, no rash, no cyanosis. Psych: Responds appropriately to questions, normal affect. Neuro: Oriented x 3, CN2-12 intact grossly, motor intact, sensation intact. Vital Signs Reviewed: Yes Vital Signs Temp Pulse Resp BP Pulse Ox 05/06/18 08:30 98.8 F 57 L 18 146/86 99 05/06/18 08:21 98.8 F 57 L 18 146/82 99 Temperature: Afebrile Blood Pressure: Normal Pulse: Bradycardic Respiratory Rate: Normal Appearance: Positive for: Well-Appearing, Non-Toxic, Comfortable Pain Distress: None Mental Status: Positive for: Alert and Oriented X 3 Finger Stick Blood Glucose: 275 Medical Decision Making ED Course and Treatment: 05/06/18 09:03 Impression: A 53 year old male presents to the emergency department with a complaint of 7 day duration constipation, 4 day duration of vomiting, fever, and dizziness. Plan: -- EKG -- Abdomen/ Pelvis CT -- Abdomen X-Ray -- Labs -- Urinalysis -- Urine Culture -- Morphine and Zofran -- Reassess and disposition Prior Visits: Notes and results from previous visits were reviewed. Progress Notes: 05/06/18 12:35 patient was seen for lower abdominal pain and constipation. workup unremarkable except for constipation seen on abdominal imaging. patient remained stable thr oughout ED course. patient requested refill of his insulin. - Lab Interpretations Lab Results: Lab Results 05/06/18 08:41: POC Glucose (mg/dL) 275 H I have reviewed the lab results: Yes - RAD Interpretation Narrative RAD Interpretations (Text): 05/06/18 12:10 Abdomen/ Pelvis CT Signed By: Darryl Rivera MD Dictated Date/ Time: 05/06/18 1124 Impression: No acute intra- abdominal findings. Abdomen X-Ray Signed By: Darryl Rivera MD Dictated Date/ Time: 05/06/18 1140 Impression: Moderate constipation - EKG Interpretation EKG Interpretation (Text): 05/06/18 10:21 0836: sinus rhythm at 63 bpm, nml qrs, nml axis, low voltage, nonspecific t wave abn Interpreted by ED Physician: Yes Type: 12 lead EKG - Scribe Statement The provider has reviewed the documentation as recorded by the Scribe Carly Allan Provider Scribe Attestation: All medical record entries made by the Scribe were at my direction and personally dictated by me. I have reviewed the chart and agree that the record accurately reflects my personal performance of the history, physical exam, medical decision making, and the department course for this patient. I have also personally directed, reviewed, and agree with the discharge instructions and disposition Disposition/Present on Arrival - Present on Arrival Any Indicators Present on Arrival: No History of DVT/PE: No History of Uncontrolled Diabetes: Yes Urinary Catheter: No History of Decub. Ulcer: No History Surgical Site Infection Following: None - Disposition Have Diagnosis and Disposition been Completed?: Yes Diagnosis: Constipation Disposition: HOME/ ROUTINE Disposition Time: 12:35 Patient Plan: Discharge Patient Problems: Current Active Problems Problem Status Onset Constipation Acute Condition: STABLE Discharge Instructions (ExitCare): Constipation in Adults Additional Instructions: You must follow up with a primary care doctor for refills of your medications. GEOVANY LAI, thank you for letting us take care of you today. Your provider was Dr. Lloyd Jain and you were treated for constipation. The emergency medical care you received today was directed at your acute symptoms. If you were prescribed any medication, please fill it and take as directed. It may take se veral days for your symptoms to resolve. Return to the Emergency Department if your symptoms worsen, do not improve, or if you have any other problems. Please contact your doctor or call one of the physicians/clinics you have been referred to that are listed on the Patient Visit Information form that is included in your discharge packet. Bring any paperwork you were given at discharge with you along with any medications you are taking to your follow up visit. Our treatment cannot replace ongoing medical care by a primary care provider outside of the emergency department. Thank you for allowing the [facility] team to be part of your care today. If you had an X-Ray or CT scan: A Radiologist will review the ED reading if any change in treatment is needed we will contact you. If you had a blood, urine, or wound culture: It will take several days for the results, if any change in treatment is needed we will contact you. If you had an STI test: It will take 48 hours for the results. Please call after 1 week if you have not heard back. Prescriptions: Insulin NPH Hum/Reg Insulin Hm [Humulin 70-30 Vial] 15 units SC TID #1 sharda Magnesium Citrate [Citrate of Mag] 300 ml PO DAILY 1 Days bottle Sennosides/Docusate Sodium [Colace 2-in-1 Tablet] 2 each PO BID 7 Days #14 tablet Referrals: [facility] [Outside] - Follow up with primary Rebeca Gimenez MD [Medical Doctor] - Follow up with primary Forms: [employer] (Nigerien)
[2018-05-06 09:17] LABS: BASO # 0.05 K/mm3 (0.0-2.0); BASO % 0.8 % (0.0-3.0); EOS # 0.1 (0.0-0.7); GRAN # 4.87 (1.4-6.5); GRAN % 75.3 % (50.0-68.0); HEMOGLOBIN 11.6 g/dL (14.0-18.0); LYMPH # 1.1 (1.2-3.4); LYMPH % 16.8 % (22.0-35.0); MEAN CELL VOLUME 86.9 fl (80.0-105.0); MEAN CORPUSCULAR HEMOGLOBIN 29.3 pg (25.0-35.0); MEAN CORPUSCULAR HGB CONC 33.7 g/dl (31.0-37.0); MEAN PLATELET VOLUME 11.6 fl (7.0-11.0); MONO # 0.3 (0.1-0.6); MONO % 5.1 % (1.0-6.0); RBC 3.96 10^6/uL (3.5-6.1); RED CELL DISTRIBUTION WIDTH 13.5 % (11.5-14.5); WHITE BLOOD COUNT 6.5 10^3/ul (4.5-11.0)
[2018-05-06 09:23] LABS: VENOUS BLOOD GAS BASE EXCESS 2.2 mmol/L (0.0-2.0); VENOUS BLOOD GAS PO2 53 mm/Hg (30-55); VENOUS BLOOD PH 7.39 (7.32-7.43)
[2018-05-06 09:29] LABS: ALB/GLOB RATIO 1.1 (1.1-1.8); ALBUMIN 3.2 g/dL (3.0-4.8); ALT/SGPT 24 U/L (7-56); AST/SGOT 24 U/L (17-59); BLOOD UREA NITROGEN 20 mg/dL (7-21); CALCIUM 8.6 mg/dL (8.4-10.5); GFR NON-AFRICAN AMERICAN > 60; LIPASE 26 U/L (23-300)
[2018-05-06] MEDS ORDERED: Iohexol 350 MG/100 ML VIAL ONE (10:30)
[2018-05-06 11:18] VITALS: O2SAT 98
--- NOTE | 2018-05-06 11:27 | CT ---
Date of service: 05/06/2018 PROCEDURE: CT Abdomen and Pelvis with contrast HISTORY: lower abdominal pain COMPARISON: None. TECHNIQUE: Contrast dose: 100 cc of Omni 350 Radiation dose: Total exam DLP = 989 mGy-cm. This CT exam was performed using one or more of the following dose reduction techniques: Automated exposure control, adjustment of the mA and/or kV according to patient size, and/or use of iterative reconstruction technique. FINDINGS: LOWER THORAX: Unremarkable. LIVER: Unremarkable. No gross lesion or ductal dilatation. GALLBLADDER AND BILE DUCTS: Unremarkable. PANCREAS: Unremarkable. No gross lesion or ductal dilatation. SPLEEN: Unremarkable. ADRENALS: Unremarkable. No mass. KIDNEYS AND URETERS: Unremarkable. No hydronephrosis. No solid mass. VASCULATURE: Unremarkable. No aortic aneurysm. BOWEL: Unremarkable. No obstruction. No gross mural thickening. APPENDIX: Normal appendix. PERITONEUM: Unremarkable. No free fluid. No free air. LYMPH NODES: Unremarkable. No enlarged lymph nodes. BLADDER: Unremarkable. REPRODUCTIVE: Unremarkable. BONES: No acute fracture. OTHER FINDINGS: None IMPRESSION: No acute intra-abdominal findings
--- NOTE | 2018-05-06 11:42 | RAD ---
Date of service: 05/06/2018 HISTORY: constipation COMPARISON: 09/22/2013 FINDINGS: BOWEL: Normal. No obstruction. No free air. Moderate constipation BONES: Normal. OTHER FINDINGS: None. IMPRESSION: Moderate constipation
[2018-05-06 12:10] LABS: URINE APPEARANCE CLEAR (CLEAR); URINE BILIRUBIN NEGATIVE (NEGATIVE); URINE COLOR YELLOW (YELLOW)
[2018-05-06 12:11] LABS: PH,URINE 6.5 (4.7-8.0); URINE BLOOD NEGATIVE (NEGATIVE); URINE PROTEIN NEGATIVE mg/dL (<30 mg/dL); URINE UROBILINOGEN 0.2 E.U./dL (<1 E.U./dL)
[2018-05-06 12:12] LABS: URINE GLUCOSE (UA) >1000 mg/dL (NEGATIVE); URINE LEUKOCYTE ESTERASE NEGATIVE Leu/uL (NEGATIVE)
[2018-05-06 12:49] VITALS: BP 142/80; PULSE 62; RESP 20; TEMP 97.9
--- NOTE | 2018-05-06 16:32 | CARD ---
APPROVED REPORT Date of service: 05/06/2018 EKG Measurement Heart [id number] <Conclusion> Sinus rhythm with premature atrial complexes Cannot rule out Anterior infarct, age undetermined Abnormal ECG
== END 2018-05-06 12:47 | disposition home or self-care (01) ==
LOC: ED 08:21
DX: K59.00 Constipation, unspecified (principal)
CPT/HCPCS: 74018; 74177; 80053; 81003; 82803; 82948; 83690; 85025; 87086; 87181; 93005; 96374; 96375; 99284; J2270; J2405; Q9967

== ENCOUNTER 2018-05-17 15:58 | Emergency (ER) | payer OTHER ==
[2018-05-17] MEDS ORDERED: Magnesium Citrate Oral SOL (300 ml) PO ONE (16:18)
[2018-05-17] MEDS ORDERED: Sodium Chloride 0.9% 1,000 ML IV STA (16:26)
[2018-05-17 16:27] VITALS: TEMP 97.9; BMI 27.2
[2018-05-17] MEDS ORDERED: Mineral Oil Enema 135 ml RC ONE (16:35)
[2018-05-17 16:45] LABS: BASO # 0.04 K/mm3 (0.0-2.0); BASO % 0.5 % (0.0-3.0); EOS # 0.1 (0.0-0.7); EOS % 1.4 % (1.5-5.0); GRAN # 5.75 (1.4-6.5); GRAN % 75.7 % (50.0-68.0); HEMOGLOBIN 14.2 g/dL (14.0-18.0); LYMPH # 1.1 (1.2-3.4); LYMPH % 14.8 % (22.0-35.0); MEAN CELL VOLUME 86.8 fl (80.0-105.0); MEAN CORPUSCULAR HEMOGLOBIN 29.8 pg (25.0-35.0); MEAN CORPUSCULAR HGB CONC 34.3 g/dl (31.0-37.0); MEAN PLATELET VOLUME 12.5 fl (7.0-11.0); MONO # 0.6 (0.1-0.6); MONO % 7.6 % (1.0-6.0); RBC 4.77 10^6/uL (3.5-6.1); RED CELL DISTRIBUTION WIDTH 13.2 % (11.5-14.5); WHITE BLOOD COUNT 7.6 10^3/ul (4.5-11.0)
--- NOTE | 2018-05-17 16:49 | ED PDOC ---
Arrival/HPI <Kenia Sy - Last Filed: 05/17/18 21:10> - General Historian: Patient - History of Present Illness Narrative History of Present Illness (Text): 05/17/18 16:39 53 y/o male with past medical history of hypertension, diabetes, hypercholestrolemia, diabetic gastroparesis, and gastric cancer presents the ED with complaints of abdominal pain and hematemesis for the past 2 weeks. Patient was seen in the Emergency Department on 05/06/18 for similar complaints with no significant CT findings. However, pt had a positive urine culture and was notified via certified mail, since he could not be contact via phone. Patient reports he flew to [place] and had a hospital course there, but flew back to [place] when informed of the positive urine culture. Patient now reports associated symptoms of dizziness and constipation. Patient notes last normal bowel movement 4 days ago. Patient denies any fever, chills, diarrhea, dysuria, chest pain, shortness of breath, cough, headache,neck pain, back pain, or any other complaints. PMD: None Time/Duration: > week Symptom Onset: Gradual Symptom Course: Unchanged Quality: Aching Activities at Onset: Light Context: Home <Nikolay Wick - Last Filed: 05/19/18 12:37> - General Chief Complaint: GI Problem Time Seen by Provider: 05/17/18 16:08 Past Medical History - Provider Review Nursing Documentation Reviewed: Yes - Infectious Disease Hx of Infectious Diseases: None - Tetanus Immunization Tetanus Immunization: Unknown - Cardiac Hx Cardiac Disorders: Yes Hx Hypertension: Yes - Pulmonary Hx Respiratory Disorders: Yes Hx Asthma: Yes - Neurological Hx Neurological Disorder: No - HEENT Hx HEENT Disorder: No - Renal Hx Renal Disorder: No - Endocrine/Metabolic Hx Endocrine Disorders: Yes Hx Diabetes Mellitus Type 2: Yes - Hematological/Oncological Hx Blood Disorders: Yes Hx Cancer: Yes (stomach cancer) - Integumentary Hx Dermatological Disorder: No - Musculoskeletal/Rheumatological Hx Musculoskeletal Disorders: No - Gastrointestinal Hx Gastrointestinal Disorders: Yes Hx Nausea: Yes Hx Vomiting: Yes Other/Comment: stomach ca - Genitourinary/Gynecological Hx Genitourinary Disorders: No - Psychiatric Hx Psychophysiologic Disorder: Yes Hx Depression: Yes Hx Substance Use: No - Surgical History Hx Appendectomy: Yes Hx Orthopedic Surgery: Yes (knee) - Anesthesia Hx Anesthesia: Yes Hx Anesthesia Reactions: No Hx Malignant Hyperthermia: No - Suicidal Assessment Feels Threatened In Home Enviroment: No <Nikolay Wick - Last Filed: 05/19/18 12:37> Family/Social History - Physician Review Nursing Documentation Reviewed: Yes Family/Social History: Unknown Family HX Smoking Status: Current Some Days Smoker Hx Alcohol Use: No Hx Substance Use: No Substance used: marijuana Amount: 1 Hx Substance Use Treatment: No <Nikolay Wick - Last Filed: 05/19/18 12:37> Allergies/Home Meds <Kenia Sy - Last Filed: 05/17/18 21:10> <Timothy Wickyl - Last Filed: 05/19/18 12:37> Allergies/Adverse Reactions: Allergies No Known Allergies Allergy (Verified 11/06/17 10:04) Review of Systems - Physician Review All systems were reviewed & negative as marked: Yes - Review of Systems Constitutional: absent: Fevers Respiratory: absent: SOB, Cough Cardiovascular: absent: Chest Pain Gastrointestinal: Abdominal Pain, Constipation, Vomiting. absent: Diarrhea Genitourinary Male: absent: Dysuria Musculoskeletal: absent: Back Pain, Neck Pain Neurological: Dizziness. absent: Headache <Nikolay Wick - Last Filed: 05/19/18 12:37> Physical Exam Vital Signs Temp Pulse Resp BP Pulse Ox 05/17/18 19:20 77 15 143/93 H 97 05/17/18 18:24 74 18 127/80 99 05/17/18 16:05 97.9 F 71 18 130/78 96 <Kenia Sy - Last Filed: 05/17/18 21:10> Vital Signs Reviewed: Yes Vital Signs Temp Pulse Resp BP Pulse Ox 05/17/18 16:05 97.9 F 71 18 130/78 96 Temperature: Afebrile Blood Pressure: Normal Pulse: Regular Respiratory Rate: Normal Appearance: Positive for: Well-Appearing, Non-Toxic, Comfortable Pain Distress: None Mental Status: Positive for: Alert and Oriented X 3 - Systems Exam Head: Present: Atraumatic, Normocephalic Pupils: Present: PERRL Extroacular Muscles: Present: EOMI Conjunctiva: Present: Normal Mouth: Present: Moist Mucous Membranes Neck: Present: Normal Range of Motion Respiratory/Chest: Present: Clear to Auscultation, Good Air Exchange. No: Respiratory Distress, Accessory Muscle Use Cardiovascular: Present: Regular Rate and Rhythm, Normal S1, S2. No: Murmurs Abdomen: Present: Tenderness (mild suprapubic tenderness). No: Distention, Peritoneal Signs, Rebound, Guarding Back: Present: Normal Inspection Upper Extremity: Present: Normal Inspection. No: Cyanosis, Edema Lower Extremity: Present: Normal Inspection. No: Edema Neurological: Present: GCS=15, CN II-XII Intact, Speech Normal Skin: Present: Warm, Dry, Normal Color. No: Rashes Psychiatric: Present: Alert, Oriented x 3, Normal Insight, Normal Concentration <Bosompem,Nikolay - Last Filed: 05/19/18 12:37> Medical Decision Making - Lab Interpretations Lab Results: 05/17/18 16:35 05/17/18 16:35 Lab Results 05/17/18 19:10: Urine Opiates Screen Negative, Urine Methadone Screen Negative, Ur Barbiturates Screen Positive H, Ur Phencyclidine Scrn Negative, Ur Amphetamines Screen Negative, U Benzodiazepines Scrn Negative, U Oth Cocaine Metabols Negative, U Cannabinoids Screen Positive H 05/17/18 19:10: Urine Color Yellow, Urine Appearance Clear, Urine pH 7.0, Ur Specific [place] 1.025, Urine Protein 100 H, Urine Glucose (UA) >=1000, Urine Ketones 15 H, Urine Blood Trace-intact H, Urine Nitrate Negative, Urine Bilirubin Negative, Urine Urobilinogen 0.2, Ur Leukocyte Esterase Negative, Urine RBC 10 - 15, Urine WBC 5 - 10, Ur Epithelial Cells 6 - 8 05/17/18 16:35: Salicylates < 1 L, Acetaminophen < 10.0 L 05/17/18 16:35: Free T4 1.52, TSH 3rd Generation 0.49 05/17/18 16:35: Sodium 137, Potassium 3.9, Chloride 98, Carbon Dioxide 29, Anion Gap 14, BUN 20, Creatinine 0.7 L, Est GFR ( Amer) > 60, Est GFR (Non-Af Amer) > 60, Random Glucose 260 H, Calcium 9.5, Total Bilirubin 1.2, AST 30, ALT 27, Alkaline Phosphatase 92, Troponin I < 0.01, Total Protein 7.9, Albumin 4.2, Globulin 3.7, Albumin/Globulin Ratio 1.2, Amylase 78, Lipase 20 L 05/17/18 16:35: PT 12.2, INR 1.07, APTT 33.9 05/17/18 16:35: WBC 7.6, RBC 4.77, Hgb 14.2 D, Hct 41.4 L, MCV 86.8, MCH 29.8, MCHC 34.3, RDW 13.2, Plt Count 242, MPV 12.5 H, Gran % 75.7 H, Lymph % (Auto) 14.8 L, [place] % (Auto) 7.6 H, Eos % (Auto) 1.4 L, Baso % (Auto) 0.5, Gran # 5.75, Lymph # (Auto) 1.1 L, [place] # (Auto) 0.6, Eos # (Auto) 0.1, Baso # (Auto) 0.04 - RAD Interpretation Radiology Orders: 05/17/18 16:26 ABDOMEN PORTABLE 1 VIEW [RAD] Stat - Medication Orders Current Medication Orders: Discontinued Medications Haloperidol Lactate (Haldol) 2 mg IVP STAT STA; Protocol Stop: 05/17/18 18:20 Last Admin: 05/17/18 18:39 Dose: 2 mg IVP Administration Document 05/17/18 18:39 SF (Rec: 05/17/18 18:[address] [id number] Charges for Administration # of IVP Administrations 1 Sodium Chloride (Sodium Chloride 0.9%) 1,000 mls @ 999 mls/hr IV .Q1H1M STA Stop: 05/17/18 17:26 Last Admin: 05/17/18 16:59 Dose: 999 mls/hr eMAR Start Stop Document 05/17/18 16:59 SF (Rec: 05/17/18 16:[address] [facility] [id number]) Intravenous Solution Start Date 05/17/18 Start Time 16:59 End Date 05/17/18 End time 18:00 Total Infusion Time 61 Lorazepam (Ativan) 1 mg IVP ONCE ONE; Protocol Stop: 05/17/18 18:20 Last Admin: 05/17/18 18:39 Dose: 1 mg IVP Administration Document 05/17/18 18:39 SF (Rec: 05/17/18 18:[address] [facility] [facility] [id number]) Charges for Administration # of IVP Administrations 1 Magnesium Citrate (Citrate Of Mag) 300 ml PO ONCE ONE Stop: 05/17/18 16:19 Last Admin: 05/17/18 16:57 Dose: 300 ml Metoclopramide HCl (Reglan) 10 mg IVP STAT STA Stop: 05/17/18 16:28 Last Admin: 05/17/18 16:57 Dose: 10 mg IVP Administration Document 05/17/18 16:57 SF (Rec: 05/17/18 16:57 [id number]) Charges for Administration # of IVP Administrations 1 Mineral Oil (Fleet Mineral Oil Enema) 135 ml RC ONCE ONE Stop: 05/17/18 16:36 Last Admin: 05/17/18 16:59 Dose: 135 ml Polyethylene Glycol (Miralax) 17 gm PO STAT STA Stop: 05/17/18 18:23 Last Admin: 05/17/18 18:52 Dose: 17 gm <Kenia Sy - Last Filed: 05/17/18 21:10> ED Course and Treatment: 05/17/18 16:53 Impression: 53 year old male who presents to the Emergency Department with complaints of lower abdominal pain, vomiting, dizziness, and constipation. Differential Diagnosis included but are not limited to: constipation colitis cystitis diverticulitis Plan: -- Labs -- Magnesium Citrate -- Reglan -- Mineral Oil -- IV fluids -- Abdominal xray -- Urinalysis -- Reassess and disposition Prior Visits: Notes and results from previous visits were reviewed. Upon review, CT scan from prior was noted to be unremarkable with CXR consistent with constipation Progress Notes: 05/17/18 18:13 Labs reviewed with no acute leukocytosis or electrolyte abnormalities. Patient noted to be profusely crying. When interrogated on the cause of the pain, he denies and acknowledges of his benign lab results. Psych labs ordered. PES worker called. 05/17/18 20:[address] Sy who will resume the patient's care. - RAD Interpretation Narrative RAD Interpretations (Text): 05/17/18 18:47 X-ray of Abdomen reviewed by radiologist, shows: FINDINGS: BOWEL: There is small amount of stool in the colon and rectum, interval improvement in previously noted severe constipation. No obstruction. No free air. BONES: Normal. OTHER FINDINGS: None. IMPRESSION: Nonobstructive bowel-gas pattern. Radiology Orders: 05/17/18 16:26 ABDOMEN PORTABLE 1 VIEW [RAD] Stat Lien Searcher: Radiologist - EKG Interpretation EKG Interpretation (Text): 05/17/18 18:30 EKG: Ordered, reviewed, and independently interpreted the EKG. Rate : 82 BPM Rhythm : NSR Interpretation : No ST-segment elevations or depressions, no T-wave inversions, normal intervals. No QT prolongation. Interpreted by ED Physician: Yes Type: 12 lead EKG - Medication Orders Current Medication Orders: Sodium Chloride (Sodium Chloride 0.9%) 1,000 mls @ 999 mls/hr IV .Q1H1M STA Stop: 05/17/18 17:26 Discontinued Medications Magnesium Citrate (Citrate Of Mag) 300 ml PO ONCE ONE Stop: 05/17/18 16:19 Metoclopramide HCl (Reglan) 10 mg IVP STAT STA Stop: 05/17/18 16:28 Mineral Oil (Fleet Mineral Oil Enema) 135 ml RC ONCE ONE Stop: 05/17/18 16:36 <Nikolay Wick - Last Filed: 05/19/18 12:37> - Scribe Statement The provider has reviewed the documentation as recorded by the Alphonse casarez with Eddie All medical record entries made by the Joseibdev were at my direction and personally dictated by me. I have reviewed the chart and agree that the record accurately reflects my personal performance of the history, physical exam, medical decision making, and the department course for this patient. I have also personally directed, reviewed, and agree with the discharge instructions and disposition. <Nikolay Wick - Last Filed: 05/19/18 12:37> Disposition/Present on Arrival - Present on Arrival Any Indicators Present on Arrival: Yes History of DVT/PE: No History of Uncontrolled Diabetes: Yes Urinary Catheter: No History of Decub. Ulcer: No - Disposition Have Diagnosis and Disposition been Completed?: Yes Disposition Time: 20:55 Patient Plan: Discharge <Kenia Sy - Last Filed: 05/17/18 21:10> - Present on Arrival History of DVT/PE: No History of Uncontrolled Diabetes: Yes Urinary Catheter: No History of Decub. Ulcer: No History Surgical Site Infection Following: None <Nikolay Wick - Last Filed: 05/19/18 12:37> - Disposition Diagnosis: Constipation, Hyperglycemia, Substance abuse, Mood disorder Disposition: HOME/ ROUTINE Condition: STABLE Discharge Instructions (ExitCare): Constipation, Adult (DC), Hyperglycemia, Adult (DC), Drug Abuse and Drug Addiction (DC) Print Language: ECUADOREAN Additional Instructions: GEOVANY LAI, thank you for letting us take care of you today. Your provider was Kenia Sy MD and you were treated for VOMITING. The emergency medical care you received today was directed at your acute symptoms. If you were prescribed any medication, please fill it and take as directed. It may take several days for your symptoms to resolve. Return to the Emergency Department if your symptoms worsen, do not improve, or if you have any other problems. Please contact your doctor or call one of the physicians/clinics you have been referred to that are listed on the Patient Visit Information form that is included in your discharge packet. Bring any paperwork you were given at discharge with you along with any medications you are taking to your follow up visit. Our treatment cannot replace ongoing medical care by a primary care provider outside of the emergency department. Thank you for allowing the [facility] team to be part of your care today. Referrals: Rebeca Gimenez MD [Medical Doctor] - Follow up with primary Forms: [employer] [facility] (Algerian), [employer] [facility] (Czech)
[2018-05-17 16:53] LABS: INR 1.07; PARTIAL THROMBOPLASTIN TIME 33.9 Seconds (25.1-36.5); PROTHROMBIN TIME 12.2 SECONDS (9.4-12.5)
[2018-05-17 17:07] LABS: TROPONIN I < 0.01 ng/mL
[2018-05-17 17:08] LABS: ALB/GLOB RATIO 1.2 (1.1-1.8); ALBUMIN 4.2 g/dL (3.0-4.8); ALT/SGPT 27 U/L (7-56); AMYLASE 78 U/L (35-125); AST/SGOT 30 U/L (17-59); BLOOD UREA NITROGEN 20 mg/dL (7-21); CALCIUM 9.5 mg/dL (8.4-10.5); GFR NON-AFRICAN AMERICAN > 60; LIPASE 20 U/L (23-300)
--- NOTE | 2018-05-17 17:24 | RAD ---
Date of service: 05/17/2018 HISTORY: constipation COMPARISON: 05/06/2018. FINDINGS: BOWEL: There is small amount of stool in the colon and rectum, interval improvement in previously noted severe constipation. No obstruction. No free air. BONES: Normal. OTHER FINDINGS: None. IMPRESSION: Nonobstructive bowel-gas pattern.
[2018-05-17 18:14] LABS: ACETAMINOPHEN < 10.0 ug/ml (10.0-20.0); SALICYLATE < 1 mg/dL (2.0-20.0)
[2018-05-17] MEDS ORDERED: POLYETHYLENE GLYCOL 3350 17 GM/Dose PACKET PO STA (18:22)
[2018-05-17 18:47] LABS: FREE T4 1.52 ng/dL (0.78-2.19)
[2018-05-17 19:21] VITALS: O2SAT 97
[2018-05-17 19:23] LABS: URINE BILIRUBIN NEGATIVE (NEGATIVE); URINE BLOOD TRACE-INTACT (NEGATIVE); URINE GLUCOSE (UA) >=1000 mg/dL (NEGATIVE); URINE LEUKOCYTE ESTERASE NEGATIVE Leu/uL (NEGATIVE); URINE PROTEIN 100 mg/dL (<30 mg/dL); URINE UROBILINOGEN 0.2 E.U./dL (<1 E.U./dL)
[2018-05-17 19:25] LABS: URINE APPEARANCE CLEAR (CLEAR); URINE COLOR YELLOW (YELLOW)
[2018-05-17 19:50] LABS: BARBITURATES, UR POSITIVE (NEGATIVE); BENZODIAZEPINES, UR NEGATIVE (NEGATIVE); OPIATES, UR NEGATIVE (NEGATIVE); PHENCYCLIDINE, UR NEGATIVE (NEGATIVE)
--- NOTE | 2018-05-17 20:59 | ED PDOC ---
Physical Exam - Physical Exam Narrative Physical Exam (Text): 05/17/18 19:00 Patient endorsed to me by Dr. Wick, pending labs and evaluation by PES. 05/17/18 19:50 Patient evaluated by PES who has called the psychiatrist for consult. Patient glucose is elevated 05/18/18 20:50 PES cleared patient for discharge and diagnosed patient with substance abuse induced mood disorder. 05/18/18 20:57 Patient is currently having a bowel movement and will soon be discharged. Vital Signs Reviewed: Yes Vital Signs Temp Pulse Resp BP Pulse Ox 05/17/18 19:20 77 15 143/93 H 97 05/17/18 18:24 74 18 127/80 99 05/17/18 16:05 97.9 F 71 18 130/78 96 Temperature: Afebrile Blood Pressure: Normal Pulse: Regular Respiratory Rate: Normal Appearance: Positive for: Well-Appearing, Non-Toxic, Comfortable Pain Distress: None Mental Status: Positive for: Alert and Oriented X 3 Medical Decision Making - Lab Interpretations Lab Results: 05/17/18 16:35 05/17/18 16:35 Lab Results 05/17/18 19:10: Urine Opiates Screen Negative, Urine Methadone Screen Negative, Ur Barbiturates Screen Positive H, Ur Phencyclidine Scrn Negative, Ur Amphetamines Screen Negative, U Benzodiazepines Scrn Negative, U Oth Cocaine Metabols Negative, U Cannabinoids Screen Positive H 05/17/18 19:10: Urine Color Yellow, Urine Appearance Clear, Urine pH 7.0, Ur Specific University 1.025, Urine Protein 100 H, Urine Glucose (UA) >=1000, Urine Ketones 15 H, Urine Blood Trace-intact H, Urine Nitrate Negative, Urine Bili bennett Negative, Urine Urobilinogen 0.2, Ur Leukocyte Esterase Negative, Urine RBC 10 - 15, Urine WBC 5 - 10, Ur Epithelial Cells 6 - 8 05/17/18 16:35: Salicylates < 1 L, Acetaminophen < 10.0 L 05/17/18 16:35: Free T4 1.52, TSH 3rd Generation 0.49 05/17/18 16:35: Sodium 137, Potassium 3.9, Chloride 98, Carbon Dioxide 29, Anion Gap 14, BUN 20, Creatinine 0.7 L, Est GFR ( Amer) > 60, Est GFR (Non-Af Amer) > 60, Random Glucose 260 H, Calcium 9.5, Total Bilirubin 1.2, AST 30, ALT 27, Alkaline Phosphatase 92, Troponin I < 0.01, Total Protein 7.9, Albumin 4.2, Globulin 3.7, Albumin/Globulin Ratio 1.2, Amylase 78, Lipase 20 L 05/17/18 16:35: PT 12.2, INR 1.07, APTT 33.9 05/17/18 16:35: WBC 7.6, RBC 4.77, Hgb 14.2 D, Hct 41.4 L, MCV 86.8, MCH 29.8, MCHC 34.3, RDW 13.2, Plt Count 242, MPV 12.5 H, Gran % 75.7 H, Lymph % (Auto) 14.8 L, [place] % (Auto) 7.6 H, Eos % (Auto) 1.4 L, Baso % (Auto) 0.5, Gran # 5.75, Lymph # (Auto) 1.1 L, [place] # (Auto) 0.6, Eos # (Auto) 0.1, Baso # (Auto) 0.04 - RAD Interpretation Radiology Orders: 05/17/18 16:26 ABDOMEN PORTABLE 1 VIEW [RAD] Stat - Medication Orders Current Medication Orders: Discontinued Medications Haloperidol Lactate (Haldol) 2 mg IVP STAT STA; Protocol Stop: 05/17/18 18:20 Last Admin: 05/17/18 18:39 Dose: 2 mg IVP Administration Document 05/17/18 18:39 SF (Rec: [facility]17/18 18:39 [id number] Charges for Administration # of IVP Administrations 1 Sodium Chloride (Sodium Chloride 0.9%) 1,000 mls @ 999 mls/hr IV .Q1H1M STA Stop: 05/17/18 17:26 Last Admin: 05/17/18 16:59 Dose: 999 mls/hr eMAR Start Stop Document 05/17/18 16:59 SF (Rec: 05/17/18 16:59 [id number] Intravenous Solution Start Date 05/17/18 Start Time 16:59 End Date 05/17/18 End time 18:00 Total Infusion Time 61 Lorazepam (Ativan) 1 mg IVP ONCE ONE; Protocol Stop: 05/17/18 18:20 Last Admin: 05/17/18 18:39 Dose: 1 mg IVP Administration Document 05/17/18 18:39 SF (Rec: 05/17/18 18:40 SF [id number]) Charges for Administration # of IVP Administrations 1 Magnesium Citrate (Citrate Of Mag) 300 ml PO ONCE ONE Stop: 05/17/18 16:19 Last Admin: 05/17/18 16:57 Dose: 300 ml Metoclopramide HCl (Reglan) 10 mg IVP STAT STA Stop: 05/17/18 16:28 Last Admin: 05/17/18 16:57 Dose: 10 mg IVP Administration Document 05/17/18 16:57 SF (Rec: 05/17/18 16:57 SF [id number]) Charges for Administration # of IVP Administrations 1 Mineral Oil (Fleet Mineral Oil Enema) 135 ml RC ONCE ONE Stop: 05/17/18 16:36 Last Admin: 05/17/18 16:59 Dose: 135 ml Polyethylene Glycol (Miralax) 17 gm PO STAT STA Stop: 05/17/18 18:23 Last Admin: 05/17/18 18:52 Dose: 17 gm - Scribe Statement The provider has reviewed the documentation as recorded by the Alphonse Villafana All medical record entries made by the Joseibdev were at my direction and personally dictated by me. I have reviewed the chart and agree that the record accurately reflects my personal performance of the history, physical exam, medical decision making, and the department course for this patient. I have also personally directed, reviewed, and agree with the discharge instructions and disposition.\ Disposition/Present on Arrival - Present on Arrival Any Indicators Present on Arrival: Yes History of DVT/PE: No History of Uncontrolled Diabetes: Yes Urinary Catheter: No History of Decub. Ulcer: No History Surgical Site Infection Following: None - Disposition Have Diagnosis and Disposition been Completed?: Yes Diagnosis: Constipation, Hyperglycemia, Substance abuse, Mood disorder Disposition: HOME/ ROUTINE Disposition Time: 20:50 Patient Plan: Discharge Condition: STABLE Discharge Instructions (ExitCare): Constipation, Adult (DC), Hyperglycemia, Adult (DC), Drug Abuse and Drug Addiction (DC) Print Language: CHINESE Additional Instructions: GEOVANY LAI, thank you for letting us take care of you today. Your provider was Kenia Sy MD and you were treated for VOMITING. The emergency medical care you received today was directed at your acute symptoms. If you were prescribed any medication, please fill it and take as directed. It may take several days for your symptoms to resolve. Return to the Emergency Department if your symptoms worsen, do not improve, or if you have any other problems. Please contact your doctor or call one of the physicians/clinics you have been referred to that are listed on the Patient Visit Information form that is included in your discharge packet. Bring any paperwork you were given at discharge with you along with any medications you are taking to your follow up visit. Our treatment cannot replace ongoing medical care by a primary care provider outside of the emergency department. Thank you for allowing the [facility] team to be part of your care today. Referrals: Rebeca Gimenez MD [Medical Doctor] - Follow up with primary Forms: [employer] (Faroese), [employer] (Polish)
[2018-05-17 21:17] VITALS: BP 138/87; PULSE 75; RESP 18
--- NOTE | 2018-05-18 10:21 | CARD ---
APPROVED REPORT Date of service: 05/17/2018 EKG Measurement Heart [id number] MA [id number] <Conclusion> Normal sinus rhythm Possible septal infarct, age undetermined Abnormal ECG
== END 2018-05-17 21:17 | disposition home or self-care (01) ==
LOC: ED 15:58
DX: K59.00 Constipation, unspecified (principal); F19.10 Other psychoactive substance abuse, uncomplicated; E11.65 Type 2 diabetes mellitus with hyperglycemia; F39 Unspecified mood [affective] disorder; I10 Essential (primary) hypertension; E78.00 Pure hypercholesterolemia, unspecified
CPT/HCPCS: 74018; 80053; 80324; 80329; 80345; 80346; 80349; 80353; 80358; 80361; 81001; 82150; 83690; 83992; 84439; 84443; 84484; 85025; 85610; 85730; 87086; 90791; 93005; 96361; 96374; 96375; 99285; J1630; J2060; J2765; J7030

== ENCOUNTER 2018-05-18 07:37 | Emergency (ER) | payer OTHER ==
[2018-05-18 07:52] VITALS: BMI 27.2
== END 2018-05-18 07:57 | disposition left against medical advice (07) ==
LOC: ED 07:37
DX: Z02.89 Encounter for other administrative examinations (principal); E11.9 Type 2 diabetes mellitus without complications
CPT/HCPCS: 82948; LWBS0

== ENCOUNTER 2018-05-23 07:38 | Emergency (ER) | payer OTHER ==
[2018-05-23 07:38] VITALS: BMI 27.2
[2018-05-23] MEDS ORDERED: Sodium Chloride 0.9% 1,000 ML IV STA (08:05)
--- NOTE | 2018-05-23 08:09 | ED PDOC ---
Arrival/HPI - General Chief Complaint: Abdominal Pain Time Seen by Provider: 05/23/18 07:42 Historian: Patient - History of Present Illness Narrative History of Present Illness (Text): 05/23/18 08:04 A 53 year old male, whose past medical history includes hypertension, diabetes, hypercholestrolemia, diabetic gastroparesis, and gastric cancer, presents to the emergency department complaining of constipation for the past 5 days. Patient reports he took an [id number] suppository for it but had no relief whatsoever. Notes also experiencing abdominal pain which is described as suprapubic cramping, and had 1 episode of vomiting this morning. Patient denies any chest pain, shortness of breath, or any other complaints at this time. Also, patient mentions he ran out of insulin and will follow-up with PMD to have it refilled. Past Medical History - Provider Review Nursing Documentation Reviewed: Yes - Infectious Disease Hx of Infectious Diseases: None - Tetanus Immunization Tetanus Immunization: Unknown - Cardiac Hx Cardiac Disorders: Yes Hx Hypertension: Yes - Pulmonary Hx Respiratory Disorders: Yes Hx Asthma: Yes - Neurological Hx Neurological Disorder: No - HEENT Hx HEENT Disorder: No - Renal Hx Renal Disorder: No - Endocrine/Metabolic Hx Endocrine Disorders: Yes Hx Diabetes Mellitus Type 2: Yes - Hematological/Oncological Hx Cancer: Yes - Integumentary Hx Dermatological Disorder: No - Musculoskeletal/Rheumatological Hx Musculoskeletal Disorders: No - Gastrointestinal Hx Gastrointestinal Disorders: Yes Hx Nausea: Yes Hx Vomiting: Yes Other/Comment: stomach ca - Genitourinary/Gynecological Hx Genitourinary Disorders: No - Psychiatric Hx Psychophysiologic Disorder: Yes Hx Depression: Yes Hx Substance Use: No - Surgical History Hx Appendectomy: Yes Hx Orthopedic Surgery: Yes (knee) - Anesthesia Hx Anesthesia: Yes Hx Anesthesia Reactions: No Hx Malignant Hyperthermia: No - Suicidal Assessment Feels Threatened In Home Enviroment: No Family/Social History - Physician Review Nursing Documentation Reviewed: Yes Family/Social History: No Known Family HX Smoking Status: Current Some Days Smoker Hx Alcohol Use: No Hx Substance Use: No Substance used: marijuana Amount: 1 Hx Substance Use Treatment: No Allergies/Home Meds Allergies/Adverse Reactions: Allergies No Known Allergies Allergy (Verified 05/23/18 07:47) Review of Systems - Review of Systems Constitutional: absent: Fatigue, Weight Change, Fevers Eyes: absent: Vision Changes ENT: absent: Hearing Changes Respiratory: absent: SOB, Cough, Sputum, Wheezing Cardiovascular: absent: Chest Pain, Palpitations, Edema, Calf Pain, NUNEZ, Orthopnea, Syncope Gastrointestinal: Abdominal Pain, Constipation, Vomiting (1 episode this morning) Genitourinary Male: absent: Dysuria, Frequency, Hematuria, Urinary Output Changes Skin: absent: Rash, Pruritis Neurological: absent: Dizziness Psychiatric: absent: Anxiety, Depression Physical Exam Vital Signs Reviewed: Yes Vital Signs Temp Pulse Resp BP Pulse Ox 05/23/18 07:41 97.8 F 78 18 143/90 96 Temperature: Afebrile Blood Pressure: Normal Pulse: Regular Respiratory Rate: Normal Appearance: Positive for: Well-Appearing, Non-Toxic, Comfortable Pain Distress: None Mental Status: Positive for: Alert and Oriented X 3 - Systems Exam Head: Present: Atraumatic, Normocephalic Pupils: Present: PERRL Extroacular Muscles: Present: EOMI Conjunctiva: Present: Normal Mouth: Present: Moist Mucous Membranes Neck: Present: Normal Range of Motion Respiratory/Chest: Present: Clear to Auscultation, Good Air Exchange. No: Respiratory Distress, Accessory Muscle Use Cardiovascular: Present: Regular Rate and Rhythm, Normal S1, S2. No: Murmurs Abdomen: No: Tenderness, Distention, Peritoneal Signs Back: Present: Normal Inspection Upper Extremity: Present: Normal Inspection. No: Cyanosis, Edema Lower Extremity: Present: Normal Inspection. No: Edema Neurological: Present: GCS=15, CN II-XII Intact, Speech Normal Skin: Present: Warm, Dry, Normal Color. No: Rashes Psychiatric: Present: Alert, Oriented x 3, Normal Insight, Normal Concentration Medical Decision Making ED Course and Treatment: 05/23/18 08:08 Impression: 53 year old male with constipation and suprapubic cramping. No acute findings on physical examination. Plan: -- Abdominal X-Ray -- Abd/Pelvis CT -- Labs -- Pepcid -- Toradol -- IV Fluids -- Reassess and disposition Prior Visits: Notes and results from previous visits were reviewed. Patient was last seen in the emergency department on 05/17/2018 for abdominal pain and hematemesis. P atient was discharged home. Progress Notes: 05/23/18 09:01 Attempted manual disimpaction on patient without return of stool. 05/23/18 10:26 Patient had a large movement and states he is feeling better, and notes he would like to go home. 05/23/2018 10:40 Abd/Pelvis CT FINDINGS: LOWER THORAX: Unremarkable. LIVER: Unremarkable. No gross lesion or ductal dilatation. GALLBLADDER AND BILE DUCTS: Unremarkable. PANCREAS: Unremarkable. No gross lesion or ductal dilatation. SPLEEN: Unremarkable. ADRENALS: Unremarkable. No mass. KIDNEYS AND URETERS: Unremarkable. No hydronephrosis. No solid mass. VASCULATURE: Unremarkable. No aortic aneurysm. No aortic atherosclerotic calcification or mural plaque present. BOWEL: No evidence of bowel obstruction. There is focal mural thickening seen in the sigmoid colon, best demonstrated on series 3, image 131 through 140. Additionally, see images 146-150. Consistent with nonspecific colitis. Cannot rule out neoplasm. Consider evaluation with colonoscopy when clinically feasible. No other abnormal bowel loops. No bowel obstruction. APPENDIX: Not positively identified. No secondary findings to suggest acute appendicitis. PERITONEUM: Unremarkable. No free fluid. No free air. LYMPH NODES: Unremarkable. No enlarged lymph nodes. BLADDER: Suboptimally distended. No gross abnormality. REPRODUCTIVE: Unremarkable prostate BONES: No acute fracture. OTHER FINDINGS: None. IMPRESSION: Nonspecific circumferential mural thickening in the sigmoid colon. The sigmoid colon is mostly collapsed and this may be artifactual. Nevertheless, further evaluation is advised. Possible colitis. Cannot rule out neoplasm. No other significant abnormality identified. Dictator: Myles Kyle MD 05/23/18 11:05 Patient aware of need to follow-up with PMD for insulin refill and follow-up with GI to get colonoscopy to evalaute for cancer. - Lab Interpretations I have reviewed the lab results: Yes - RAD Interpretation Radiology Orders: 05/23/18 08:04 ABDOMEN (FLAT PLATE) 1VIEW [RAD] Stat - Medication Orders Current Medication Orders: Famotidine (Pepcid) 20 mg IVP STAT STA Stop: 05/23/18 08:06 Sodium Chloride (Sodium Chloride 0.9%) 1,000 mls @ 999 mls/hr IV .Q1H1M STA Stop: 05/23/18 09:05 Ketorolac Tromethamine (Toradol) 30 mg IVP STAT STA Stop: 05/23/18 08:06 - Scribe Statement The provider has reviewed the documentation as recorded by the Alphonse Cueto Provider Scribe Attestation: All medical record entries made by the Scribe were at my direction and personal ly dictated by me. I have reviewed the chart and agree that the record accurately reflects my personal performance of the history, physical exam, medical decision making, and the department course for this patient. I have also personally directed, reviewed, and agree with the discharge instructions and disposition. Disposition/Present on Arrival - Present on Arrival Any Indicators Present on Arrival: No History of DVT/PE: No History of Uncontrolled Diabetes: Yes Urinary Catheter: No History of Decub. Ulcer: No History Surgical Site Infection Following: None - Disposition Have Diagnosis and Disposition been Completed?: Yes Diagnosis: Constipation, Hyperglycemia, Anemia Disposition: HOME/ ROUTINE Disposition Time: 10:50 Patient Plan: Discharge Patient Problems: Current Active Problems Problem Status Onset Hyperglycemia Acute Constipation Acute Anemia Acute Condition: GOOD Discharge Instructions (ExitCare): Constipation in Adults, High Fiber Diet, Di abetes and Diet Additional Instructions: You need a colonoscopy to evaluate your colon further to assess for cancer. Follow-up with PMD within 2 days. Return to ED if condition worsens. Referrals: Leodan Ballard MD [Staff Provider] - Follow up with primary Forms: [employer] (Afghan)
[2018-05-23 08:19] LABS: BASO # 0.04 K/mm3 (0.0-2.0); BASO % 0.7 % (0.0-3.0); EOS # 0.2 (0.0-0.7); EOS % 3.3 % (1.5-5.0); GRAN # 3.84 (1.4-6.5); GRAN % 66.6 % (50.0-68.0); HEMOGLOBIN 12.8 g/dL (14.0-18.0); LYMPH # 1.2 (1.2-3.4); LYMPH % 21.3 % (22.0-35.0); MEAN CELL VOLUME 86.5 fl (80.0-105.0); MEAN CORPUSCULAR HEMOGLOBIN 29.2 pg (25.0-35.0); MEAN CORPUSCULAR HGB CONC 33.8 g/dl (31.0-37.0); MEAN PLATELET VOLUME 12.7 fl (7.0-11.0); MONO # 0.5 (0.1-0.6); MONO % 8.1 % (1.0-6.0); RBC 4.38 10^6/uL (3.5-6.1); RED CELL DISTRIBUTION WIDTH 12.9 % (11.5-14.5); WHITE BLOOD COUNT 5.8 10^3/ul (4.5-11.0)
[2018-05-23 08:26] LABS: ALB/GLOB RATIO 1.1 (1.1-1.8); ALBUMIN 3.7 g/dL (3.0-4.8); ALT/SGPT 23 U/L (7-56); AST/SGOT 24 U/L (17-59); BLOOD UREA NITROGEN 15 mg/dL (7-21); CALCIUM 9.1 mg/dL (8.4-10.5); GFR NON-AFRICAN AMERICAN > 60; LIPASE 28 U/L (23-300)
[2018-05-23] MEDS ORDERED: Iohexol 350 MG/100 ML VIAL ONE (09:22)
--- NOTE | 2018-05-23 10:44 | CT ---
Date of service: 05/23/2018 PROCEDURE: CT Abdomen and Pelvis with contrast HISTORY: vomiting, abdominal pain, constipation COMPARISON: 05/06/2018 TECHNIQUE: Contrast dose: 100 mL Omnipaque 350 Radiation dose: Total exam DLP = 493.11 mGy-cm. This CT exam was performed using one or more of the following dose reduction techniques: Automated exposure control, adjustment of the mA and/or kV according to patient size, and/or use of iterative reconstruction technique. FINDINGS: LOWER THORAX: Unremarkable. LIVER: Unremarkable. No gross lesion or ductal dilatation. GALLBLADDER AND BILE DUCTS: Unremarkable. PANCREAS: Unremarkable. No gross lesion or ductal dilatation. SPLEEN: Unremarkable. ADRENALS: Unremarkable. No mass. KIDNEYS AND URETERS: Unremarkable. No hydronephrosis. No solid mass. VASCULATURE: Unremarkable. No aortic aneurysm. No aortic atherosclerotic calcification or mural plaque present. BOWEL: No evidence of bowel obstruction. There is focal mural thickening seen in the sigmoid colon, best demonstrated on series 3, image 131 through 140. Additionally, see images 146-150. Consistent with nonspecific colitis. Cannot rule out neoplasm. Consider evaluation with colonoscopy when clinically feasible. No other abnormal bowel loops. No bowel obstruction. APPENDIX: Not positively identified. No secondary findings to suggest acute appendicitis. PERITONEUM: Unremarkable. No free fluid. No free air. LYMPH NODES: Unremarkable. No enlarged lymph nodes. BLADDER: Suboptimally distended. No gross abnormality. REPRODUCTIVE: Unremarkable prostate BONES: No acute fracture. OTHER FINDINGS: None. IMPRESSION: Nonspecific circumferential mural thickening in the sigmoid colon. The sigmoid colon is mostly collapsed and this may be artifactual. Nevertheless, further evaluation is advised. Possible colitis. Cannot rule out neoplasm. No other significant abnormality identified.
--- NOTE | 2018-05-23 11:05 | RAD ---
Date of service: 05/23/2018 HISTORY: constipation COMPARISON: No prior. FINDINGS: BOWEL: Normal. No obstruction. No free air. Oral contrast within the colon as a result of CT examination earlier on the same date. BONES: Normal. OTHER FINDINGS: None. IMPRESSION: No active disease.
[2018-05-23 11:11] VITALS: RESP 18
[2018-05-23 13:00] VITALS: BP 156/95; PULSE 72; TEMP 98.3; O2SAT 98
== END 2018-05-23 11:05 | disposition home or self-care (01) ==
LOC: ED 07:38
DX: E11.65 Type 2 diabetes mellitus with hyperglycemia (principal); D64.9 Anemia, unspecified; K59.00 Constipation, unspecified; I10 Essential (primary) hypertension; F17.210 Nicotine dependence, cigarettes, uncomplicated
CPT/HCPCS: 74018; 74177; 80053; 83690; 85025; 96361; 96374; 96375; 99284; J1885; J2405; J7030; Q9967

== ENCOUNTER 2018-05-27 05:56 | Emergency (ER) | payer OTHER ==
[2018-05-27 05:57] VITALS: BMI 27.2
[2018-05-27 06:09] VITALS: TEMP 97.9
--- NOTE | 2018-05-27 07:19 | ED PDOC ---
Arrival/HPI - General Chief Complaint: Abdominal Pain Time Seen by Provider: 05/27/18 06:50 Historian: Patient - History of Present Illness Narrative History of Present Illness (Text): 05/27/18 07:05 A 53 year old male, whose past medical history includes substance abuse, hypertension, diabetes, hypercholestrolemia, diabetic gastroparesis, and gastric cancer, presents to the emergency department complaining of abdominal pain with associated nausea and vomiting for the past few days. Patient has been seen here in the ER numerous times for similar complaints. Patient denies any fever, headache, dizziness, chest pain, or any other complaints at this time. No PMD Past Medical History - Provider Review Nursing Documentation Reviewed: Yes - Infectious Disease Hx of Infectious Diseases: None - Tetanus Immunization Tetanus Immunization: Unknown - Cardiac Hx Cardiac Disorders: Yes Hx Hypertension: Yes - Pulmonary Hx Respiratory Disorders: Yes Hx Asthma: Yes - Neurological Hx Neurological Disorder: No - HEENT Hx HEENT Disorder: No - Renal Hx Renal Disorder: No - Endocrine/Metabolic Hx Endocrine Disorders: Yes Hx Diabetes Mellitus Type 2: Yes - Hematological/Oncological Hx Cancer: Yes - Integumentary Hx Dermatological Disorder: No - Musculoskeletal/Rheumatological Hx Musculoskeletal Disorders: No - Gastrointestinal Hx Gastrointestinal Disorders: Yes Hx Nausea: Yes Hx Vomiting: Yes Other/Comment: stomach ca - Genitourinary/Gynecological Hx Genitourinary Disorders: No - Psychiatric Hx Psychophysiologic Disorder: Yes Hx Depression: Yes Hx Substance Use: No - Surgical History Hx Appendectomy: Yes Hx Orthopedic Surgery: Yes (knee) - Anesthesia Hx Anesthesia: Yes Hx Anesthesia Reactions: No Hx Malignant Hyperthermia: No - Suicidal Assessment Feels Threatened In Home Enviroment: No Family/Social History - Physician Review Nursing Documentation Reviewed: Yes Family/Social History: No Known Family HX Smoking Status: Current Some Days Smoker Hx Alcohol Use: No Hx Substance Use: No Substance used: marijuana Amount: 1 Hx Substance Use Treatment: No Allergies/Home Meds Allergies/Adverse Reactions: Allergies No Known Allergies Allergy (Verified 05/23/18 07:47) Review of Systems - Physician Review All systems were reviewed & negative as marked: Yes - Review of Systems Constitutional: absent: Fevers, Night Sweats Cardiovascular: absent: Chest Pain Gastrointestinal: Abdominal Pain, Nausea, Vomiting. absent: Diarrhea Neurological: absent: Headache, Dizziness Physical Exam Vital Signs Reviewed: Yes Vital Signs Temp Pulse Resp BP Pulse Ox 05/27/18 06:07 97.9 F 84 19 142/89 98 Temperature: Afebrile Blood Pressure: Normal Pulse: Regular Respiratory Rate: Normal Appearance: Positive for: Well-Appearing, Non-Toxic, Comfortable Pain Distress: None Mental Status: Positive for: Alert and Oriented X 3 - Systems Exam Head: Present: Atraumatic, Normocephalic Pupils: Present: PERRL Extroacular Muscles: Present: EOMI Conjunctiva: Present: Normal Mouth: Present: Moist Mucous Membranes Neck: Present: Normal Range of Motion Respiratory/Chest: Present: Clear to Auscultation, Good Air Exchange. No: R espiratory Distress, Accessory Muscle Use Cardiovascular: Present: Regular Rate and Rhythm, Normal S1, S2. No: Murmurs Abdomen: No: Tenderness, Distention, Peritoneal Signs Back: Present: Normal Inspection Upper Extremity: Present: Normal Inspection. No: Cyanosis, Edema Lower Extremity: Present: Normal Inspection. No: Edema Neurological: Present: GCS=15, CN II-XII Intact, Speech Normal Skin: Present: Warm, Dry, Normal Color. No: Rashes Psychiatric: Present: Alert, Oriented x 3, Normal Insight, Normal Concentration Medical Decision Making ED Course and Treatment: 05/27/18 07:07 Impression: 53 year old male with abdominal pain with associated nausea and vomiting. Physical exam is benign. Plan: -- Labs -- Urinalysis -- Toradol -- Zofran -- Reassess and disposition Prior Visits: Notes and results from previous visits were reviewed. Patient was last seen in the emergency department on 05/23/2018 for constipation. Patient was discharged home. Progress Notes: 05/27/18 08:24 Upon reassessment, patient's abdomen is soft, non-tender, patient no longer feels any acute distress. Lab results are unremarkable and is requesting to be discharged. 05/27/18 12:[address] scan which was neg. labs unchanged. stable for dc. - Lab Interpretations I have reviewed the lab results: Yes - Medication Orders Current Medication Orders: Discontinued Medications Ketorolac Tromethamine (Toradol) 30 mg IVP STAT STA Stop: 05/27/18 07:08 Ondansetron HCl (Zofran Inj) 4 mg IVP STAT STA Stop: 05/27/18 07:09 - Scribe Statement The provider has reviewed the documentation as recorded by the Alphonse Cueto Provider Scribe Attestation: All medical record entries made by the Joseibdev were at my direction and personally dictated by me. I have reviewed the chart and agree that the record accurately reflects my personal performance of the history, physical exam, medical decision making, and the department course for this patient. I have also personally directed, reviewed, and agree with the discharge instructions and disposition. Disposition/Present on Arrival - Present on Arrival Any Indicators Present on Arrival: No History of DVT/PE: No History of Uncontrolled Diabetes: Yes Urinary Catheter: No History of Decub. Ulcer: No History Surgical Site Infection Following: None - Disposition Have Diagnosis and Disposition been Completed?: Yes Diagnosis: Abdominal pain Disposition: HOME/ ROUTINE Disposition Time: 08:00 Condition: STABLE Discharge Instructions (ExitCare): Chronic Pain (DC), Acute Abdomen (Belly Pain) Additional Instructions: return to er with worsening symptoms or concerns. Prescriptions: Famotidine [Pepcid] 20 mg PO DAILY #20 tab Referrals: Norman Alcala MD [Staff Provider] - Follow up with primary Forms: [employer] (Latvian)
[2018-05-27 07:38] LABS: BASO # 0.05 K/mm3 (0.0-2.0); BASO % 1.1 % (0.0-3.0); EOS # 0.2 (0.0-0.7); EOS % 3.4 % (1.5-5.0); GRAN # 2.92 (1.4-6.5); GRAN % 62.5 % (50.0-68.0); HEMOGLOBIN 13.4 g/dL (14.0-18.0); LYMPH # 1.2 (1.2-3.4); LYMPH % 25.3 % (22.0-35.0); MEAN CELL VOLUME 87.4 fl (80.0-105.0); MEAN CORPUSCULAR HEMOGLOBIN 29.6 pg (25.0-35.0); MEAN CORPUSCULAR HGB CONC 33.8 g/dl (31.0-37.0); MONO # 0.4 (0.1-0.6); MONO % 7.7 % (1.0-6.0); RBC 4.53 10^6/uL (3.5-6.1); RED CELL DISTRIBUTION WIDTH 12.8 % (11.5-14.5); WHITE BLOOD COUNT 4.7 10^3/uL (4.5-11.0)
[2018-05-27 07:42] LABS: ALB/GLOB RATIO 1.1 (1.1-1.8); ALBUMIN 3.7 g/dL (3.0-4.8); ALT/SGPT 21 U/L (7-56); AST/SGOT 25 U/L (17-59); BLOOD UREA NITROGEN 12 mg/dL (7-21); GFR NON-AFRICAN AMERICAN > 60; INR 1.09; LIPASE 12 U/L (23-300); PARTIAL THROMBOPLASTIN TIME 34.4 Seconds (25.1-36.5); PROTHROMBIN TIME 12.5 SECONDS (9.4-12.5)
[2018-05-27 08:14] LABS: URINE BILIRUBIN NEGATIVE (NEGATIVE); URINE BLOOD NEGATIVE (NEGATIVE); URINE GLUCOSE (UA) NEGATIVE (NEGATIVE); URINE LEUKOCYTE ESTERASE NEGATIVE Leu/uL (NEGATIVE); URINE PROTEIN NEGATIVE mg/dL (<30 mg/dL); URINE UROBILINOGEN 0.2 E.U./dL (<1 E.U./dL)
[2018-05-27 08:17] LABS: URINE APPEARANCE CLEAR (CLEAR); URINE COLOR LIGHT YELLOW (YELLOW)
[2018-05-27 08:34] VITALS: BP 130/90; PULSE 80; RESP 18; O2SAT 99
--- NOTE | 2018-05-27 10:02 | CARD ---
APPROVED REPORT Date of service: 05/27/2018 EKG Measurement Heart [id number] DC [id number] <Conclusion> Normal sinus rhythm Septal [place], age unknown No change
== END 2018-05-27 08:39 | disposition home or self-care (01) ==
LOC: ED 05:56
DX: R10.9 Unspecified abdominal pain (principal); I10 Essential (primary) hypertension; E11.43 Type 2 diabetes mellitus with diabetic autonomic (poly)neuropathy; K31.84 Gastroparesis; F17.210 Nicotine dependence, cigarettes, uncomplicated
CPT/HCPCS: 80053; 81003; 83690; 83735; 85025; 85610; 85730; 93005; 96374; 96375; 99284; J1885; J2405

== ENCOUNTER 2018-05-27 15:21 | Emergency (ER) | payer OTHER ==
[2018-05-27 15:21] VITALS: BMI 27.2
--- NOTE | 2018-05-27 15:45 | ED PDOC ---
Arrival/HPI - General Chief Complaint: Abdominal Pain Time Seen by Provider: 05/27/18 15:30 Historian: Patient - History of Present Illness Narrative History of Present Illness (Text): 05/27/18 15:45 A 53 year old male, whose past medical history includes substance abuse, hypertension, diabetes, hypercholestrolemia, diabetic gastroparesis, and gastric cancer, presents to the emergency department complaining of abdominal pain with associated nausea and vomiting for the past few days. Patient has been seen here in the ER numerous times for similar complaints. normal labs this am. neg ct 4 days ago. numerous visits with drug seeking behavior. Patient denies any fever, headache, dizziness, chest pain, or any other complaints at this time. No PMD 05/27/18 16:45 Past Medical History - Provider Review Nursing Documentation Reviewed: Yes - Infectious Disease Hx of Infectious Diseases: None - Tetanus Immunization Tetanus Immunization: Unknown - Cardiac Hx Cardiac Disorders: Yes Hx Hypertension: Yes - Pulmonary Hx Respiratory Disorders: Yes Hx Asthma: Yes - Neurological Hx Neurological Disorder: No - HEENT Hx HEENT Disorder: No - Renal Hx Renal Disorder: No - Endocrine/Metabolic Hx Endocrine Disorders: Yes Hx Diabetes Mellitus Type 2: Yes - Hematological/Oncological Hx Cancer: Yes - Integumentary Hx Dermatological Disorder: No - Musculoskeletal/Rheumatological Hx Musculoskeletal Disorders: No - Gastrointestinal Hx Gastrointestinal Disorders: Yes Hx Nausea: Yes Hx Vomiting: Yes Other/Comment: stomach ca - Genitourinary/Gynecological Hx Genitourinary Disorders: No - Psychiatric Hx Psychophysiologic Disorder: Yes Hx Depression: Yes Hx Substance Use: No - Surgical History Hx Appendectomy: Yes Hx Orthopedic Surgery: Yes (knee) - Anesthesia Hx Anesthesia: Yes Hx Anesthesia Reactions: No Hx Malignant Hyperthermia: No - Suicidal Assessment Feels Threatened In Home Enviroment: No Family/Social History - Physician Review Nursing Documentation Reviewed: Yes Family/Social History: No Known Family HX Smoking Status: Current Some Days Smoker Hx Alcohol Use: No Hx Substance Use: No Substance used: marijuana Amount: 1 Hx Substance Use Treatment: No Allergies/Home Meds Allergies/Adverse Reactions: Allergies No Known Allergies Allergy (Verified 05/27/18 15:38) Review of Systems - Physician Review All systems were reviewed & negative as marked: Yes - Review of Systems Constitutional: absent: Fevers, Night Sweats Cardiovascular: absent: Chest Pain Gastrointestinal: Abdominal Pain, Nausea, Vomiting. absent: Diarrhea Neurological: absent: Headache, Dizziness Physical Exam - Systems Exam Head: Present: Atraumatic, Normocephalic Pupils: Present: PERRL Extroacular Muscles: Present: EOMI Conjunctiva: Present: Normal Mouth: Present: Moist Mucous Membranes Neck: Present: Normal Range of Motion Respiratory/Chest: Present: Clear to Auscultation, Good Air Exchange. No: Respiratory Distress, Accessory Muscle Use Cardiovascular: Present: Regular Rate and Rhythm, Normal S1, S2. No: Murmurs Abdomen: No: Tenderness, Distention, Peritoneal Signs Back: Present: Normal Inspection Upper Extremity: Present: Normal Inspection. No: Cyanosis, Edema Lower Extremity: Present: Normal Inspection. No: Edema Neurological: Present: GCS=15, CN II-XII Intact, Speech Normal Skin: Present: Warm, Dry, Normal Color. No: Rashes Psychiatric: Present: Alert, Oriented x 3, Normal Insight, Normal Concentration Medical Decision Making ED Course and Treatment: 05/27/18 15:46 Impression: 53 year old male with abdominal pain. Plan: -- Toradol -- Zofran -- Reassess and disposition Prior Visits: Notes and results from previous visits were reviewed. Patient was last seen in the emergency department on 05/27/2018, was just discharged this morning for similar complaints. Progress Notes: 05/27/18 16:17 prior to toradol and zofran, Patient eloped from the ER. 05/27/18 16:45 - Medication Orders Current Medication Orders: Discontinued Medications Ketorolac Tromethamine (Toradol) 30 mg IM STAT STA Stop: 05/27/18 15:42 Ondansetron HCl (Zofran Odt) 4 mg PO STAT STA Stop: 05/27/18 15:42 - Scribe Statement The provider has reviewed the documentation as recorded by the Alphonse Cueto Provider Scribe Attestation: All medical record entries made by the Joseibdev were at my direction and personally dictated by me. I have reviewed the chart and agree that the record accurately reflects my personal performance of the history, physical exam, medical decision making, and the department course for this patient. I have also personally directed, reviewed, and agree with the discharge instructions and disposition. Disposition/Present on Arrival - Present on Arrival Any Indicators Present on Arrival: No History of DVT/PE: No History of Uncontrolled Diabetes: Yes Urinary Catheter: No History of Decub. Ulcer: No History Surgical Site Infection Following: None - Disposition Have Diagnosis and Disposition been Completed?: Yes Diagnosis: Abdominal pain, Drug-seeking behavior, Malingering Disposition: ELOPEMENT - ER ONLY Disposition Time: 15:00 Patient Problems: Current Active Problems Problem Status Onset Abdominal pain Acute Condition: UNKNOWN Discharge Instructions (ExitCare): Acute Abdomen (Belly Pain) Additional Instructions: follow up with specialist. return to er with worsening symptoms or concerns. Prescriptions: Ondansetron ODT [Zofran ODT] 4 mg PO Q8 PRN #10 odt PRN Reason: Nausea/Vomiting Referrals: [facility] [Outside] - Follow up with primary [facility] [Outside] - Follow up with primary Norman Alcala MD [Staff Provider] - Follow up with primary Forms: [employer] ([place])
[2018-05-27 15:49] VITALS: BP 134/88; PULSE 75; RESP 16; TEMP 98; O2SAT 100
== END 2018-05-27 16:15 | disposition left against medical advice (07) ==
LOC: ED 15:21
DX: R10.9 Unspecified abdominal pain (principal); Z76.5 Malingerer [conscious simulation]

== ENCOUNTER 2018-07-08 07:29 | Emergency (ER) | payer OTHER ==
[2018-07-08 07:29] VITALS: BMI 20.5
[2018-07-08 07:35] VITALS: BP 145/78; PULSE 78; RESP 18; TEMP 97.8; O2SAT 98
--- NOTE | 2018-07-08 07:52 | ED PDOC ---
Arrival/HPI <Vladislav Campbell - Last Filed: 07/08/18 08:37> - General Historian: Patient - History of Present Illness Narrative History of Present Illness (Text): 07/08/18 07:45 53 y o male PMhx HTN, asthma, DM2, constipation, presents to the ED c/o worsening constipation and "dry heaves" x 3 days. States he has been unable to have a BM for about 30 days. Notes associated nausea, states he has taken stool softeners and rectal suppositories without improvement in symptoms. Pt states he follows at the [facility] [place] [facility] was last seen there on 07/03/18, given a "red pill" to take at bedtime for his constipation which also did not help with his symptoms. Of note, pt also states that he checked his fingerstick at home last night, states it was 400, and stated he tried drinking copious amounts of water to help bring his sugar level down. Pt notes diaphoresis, but denies fever, chills, chest pain, sob, diarrhea, urinary complaints, or other symptoms. PMHx: HTN, asthma, DM2, constipation, gastric cancer PSurgHx: appendectomy Allergies: NKDA Home meds: Insulin (pt unsure of dosage or names of other home medications) Fam hx: denies Soc hx: admits to smoking marijuana; denies cigarette smoking or EtOH use PMD: [facility] Time/Duration: Other (3 days) Symptom Onset: Gradual Quality: Stabbing Severity Level: 10 Activities at Onset: Rest Context: Home <Gavin Hernandez - Last Filed: 07/08/18 08:41> - General Chief Complaint: Abdominal Pain Past Medical History - Provider Review Nursing Documentation Reviewed: Yes - Infectious Disease Hx of Infectious Diseases: None - Tetanus Immunization Tetanus Immunization: Unknown - Cardiac Hx Hypertension: Yes Other/Comment: HTN. - Pulmonary Hx Respiratory Disorders: No - Neurological Hx Neurological Disorder: No - HEENT Hx HEENT Disorder: No - Renal Hx Renal Disorder: No - Endocrine/Metabolic Hx Endocrine Disorders: Yes Hx Diabetes Mellitus Type 2: Yes - Hematological/Oncological Hx Blood Disorders: No Hx Cancer: Yes (stomach) - Integumentary Hx Dermatological Disorder: No - Musculoskeletal/Rheumatological Hx Musculoskeletal Disorders: No - Gastrointestinal Hx Vomiting: Yes (gastropareisis) Other/Comment: gastroparesis - Genitourinary/Gynecological Hx Genitourinary Disorders: No - Psychiatric Hx Psychophysiologic Disorder: Yes Hx Depression: Yes Hx Substance Use: Yes - Surgical History Hx Appendectomy: Yes Hx Orthopedic Surgery: Yes (knee) - Anesthesia Hx Anesthesia: Yes Hx Anesthesia Reactions: No Hx Malignant Hyperthermia: No - Suicidal Assessment Feels Threatened In Home Enviroment: No <Gavin Hernandez - Last Filed: 07/08/18 08:41> Family/Social History - Physician Review Nursing Documentation Reviewed: Yes Family/Social History: No Known Family HX Smoking Status: Current Some Days Smoker Hx Alcohol Use: No (occasional wine) Hx Substance Use: Yes Substance used: weed for pain Amount: 1 Hx Substance Use Treatment: No <Gavin Hernandez - Last Filed: 07/08/18 08:41> Allergies/Home Meds <Vladislav Campbell - Last Filed: 07/08/18 08:37> <Gavin Hernandez - Last Filed: 07/08/18 08:41> Allergies/Adverse Reactions: Allergies No Known Allergies Allergy (Verified 07/08/18 07:35) Home Medications: Home Meds Medication Instructions Recorded Confirmed Insulin Glargine, Recombina 4 units SC BID 11/22/14 12/14/14 [Lantus] Atorvastatin [Lipitor] 10 mg PO DIN 08/07/17 08/07/17 Insulin Regular, Human [Novolin R] 8 unit SC BID 08/07/17 08/07/17 Lisinopril [Zestril] 10 mg PO DAILY 08/07/17 08/07/17 MetFORMIN ER [Glucophage XR] 500 mg PO BID 08/07/17 08/07/17 Review of Systems - Physician Review All systems were reviewed & negative as marked: Yes - Review of Systems Constitutional: absent: Fevers, Night Sweats Eyes: absent: Vision Changes ENT: absent: Tinnitus Respiratory: absent: SOB, Cough, Sputum, Wheezing Cardiovascular: absent: Chest Pain, Palpitations, Edema, NUNEZ Gastrointestinal: Abdominal Pain, Stool Changes, Constipation, Nausea, Vomiting, Appetite Changes. absent: Diarrhea Genitourinary Male: absent: Dysuria, Frequency, Hematuria, Urinary Output Changes Musculoskeletal: absent: Arthralgias, Back Pain, Myalgias Skin: absent: Rash, Pruritis Neurological: absent: Headache, Dizziness, Focal Weakness Endocrine: Diaphoresis Hemo/Lymphatic: absent: Adenopathy <Gavin Hernandez - Last Filed: 07/08/18 08:41> Physical Exam Vital Signs Temp Pulse Resp BP Pulse Ox 07/08/18 07:33 97.8 F 78 18 145/78 98 <Vladislav Campbell - Last Filed: 07/08/18 08:37> Vital Signs Reviewed: Yes Vital Signs Temp Pulse Resp BP Pulse Ox 07/08/18 07:33 97.8 F 78 18 145/78 98 Temperature: Afebrile Blood Pressure: Hypertensive Pulse: Regular Respiratory Rate: Normal Appearance: Positive for: Non-Toxic, Ill-Appearing, Uncomfortable Pain Distress: Severe Mental Status: Positive for: Alert and Oriented X 3 - Systems Exam Head: Present: Atraumatic, Normocephalic Pupils: Present: PERRL Extroacular Muscles: Present: EOMI Conjunctiva: Present: Normal Mouth: Present: Moist Mucous Membranes Neck: Present: Normal Range of Motion. No: JVD, Lymphadenopathy Respiratory/Chest: Present: Clear to Auscultation, Good Air Exchange. No: Respiratory Distress, Accessory Muscle Use, Wheezes, Rales, Rhonchi Cardiovascular: Present: Regular Rate and Rhythm, Normal S1, S2. No: Murmurs, Rub, Gallop Abdomen: Present: Distention, Normal Bowel Sounds. No: Tenderness, Peritoneal Signs, Rebound, Guarding, [place]'s Point Tender, Hernias, Mass/Organomegaly Genitourinary Male: Present: Normal External Genitalia. No: Penile Discharge, T esticle Tenderness, Penile Swelling, Masses, Erythema, Hernias, Testicle Swelling Upper Extremity: Present: Normal Inspection, Normal ROM, NORMAL PULSES, Neurovascularly Intact, Capillary Refill < 2s. No: Cyanosis, Edema Lower Extremity: Present: Normal Inspection, NORMAL PULSES, Normal ROM, Neurovascularly Intact, Capillary Refill < 2 s. No: Edema, CALF TENDERNESS, Temperature Abnormalties Neurological: Present: GCS=15, CN II-XII Intact, Speech Normal, Motor Func Grossly Intact, Normal Sensory Function Skin: Present: Warm, Dry, Normal Color. No: Rashes Psychiatric: Present: Alert, Oriented x 3, Normal Insight, Normal Concentration <Gavin Hernandez - Last Filed: 07/08/18 08:41> Medical Decision Making ED Course and Treatment: 07/08/18 08:37 Leaving Against Medical Advice (AMA): The patient is choosing to leave against medical advice. I have personally explained to the patient that choosing to do so may result in permanent bodily harm or . I have discussed at great length that without further evaluation and monitoring there may be unforeseen circumstances and/or deterioration causing permanent bodily harm or as a result of their choice. The patient is alert, oriented, and shows the mental capacity to make clear decisions regarding the patients health care at this time. The patient continues to wish to leave against medical advice. In light of the patients decision to leave against medical advice, follow-up has been arranged and the patient is aware of the importance to following up as instructed. The patient has been advised that they should return to the emergency room immediately if they change their mind at any time, or if their condition begins to change or worsen in any way. - Lab Interpretations Lab Results: 07/08/18 08:04 07/08/18 08:04 Lab Results 07/08/18 08:28: Urine Color Light yellow, Urine Appearance Clear, Urine pH 6.0, Ur Specific [place] 1.025, Urine Protein 30 H, Urine Glucose (UA) 500 H, Urine Ketones Negative, Urine Blood Small H, Urine Nitrate Negative, Urine Bilirubin Negative, Urine Urobilinogen 0.2, Ur Leukocyte Esterase Negative, Urine RBC Pending, Urine WBC Pending 07/08/18 08:04: Sodium 135, Potassium 4.2, Chloride 101, Carbon Dioxide 28, Anion Gap 11, BUN 28 H, Creatinine 0.9, Est GFR ( Amer) > 60, Est GFR (Non-Af Amer) > 60, Random Glucose 247 H, Calcium 8.8, Magnesium 1.6 L, Total Bilirubin 0.7, AST 31, ALT 29, Alkaline Phosphatase 71, Total Protein 7.1, Albumin 3.7, Globulin 3.3, Albumin/Globulin Ratio 1.1 07/08/18 08:04: pO2 52, VBG pH 7.33, VBG pCO2 55.0, VBG HCO3 29.0 H, VBG O2 Sat (Calc) 88.8 H, VBG Base Excess 1.9 07/08/18 08:04: WBC 6.5, RBC 4.46, Hgb 13.2 L, Hct 39.0 L, MCV 87.4, MCH 29.6, MCHC 33.8, RDW 12.7, Plt Count 207, MPV 12.4 H, Gran % 63.2, Lymph % (Auto) 24.5, [place] % (Auto) 7.6 H, Eos % (Auto) 3.5, Baso % (Auto) 1.2, Gran # 4.09, Lymph # (Auto) 1.6, [place] # (Auto) 0.5, Eos # (Auto) 0.2, Baso # (Auto) 0.08 07/08/18 07:52: POC Glucose (mg/dL) 230 H - Medication Orders Current Medication Orders: Sodium Chloride (Sodium Chloride 0.9%) 1,000 mls @ 100 mls/hr IV .Q10H JOSEPHINE Last Admin: 07/08/18 08:20 Dose: 100 mls/hr eMAR Start Stop Document 07/08/18 08:20 VV (Rec: 07/08/18 08:21 [id number] Intravenous Solution Start Date 07/08/18 Start Time 08:20 Discontinued Medications Ketorolac Tromethamine (Toradol) 15 mg IVP STAT STA Stop: 07/08/18 08:00 Last Admin: 07/08/18 08:18 Dose: 15 mg MAR Pain Assessment Document 07/08/18 08:18 VV (Rec: 07/08/18 08:19 [id number] Pain Reassessment Is this a pain reassessment? No Presence of Pain Presence of Pain Yes Pain Scale Used Protocol: PSCALES Pain Scale Used Numeric Location Pain Location Body Site Abdomen Groin Description Description Dull Pain Behavior Crying IVP Administration Document 07/08/18 08:18 VV (Rec: 07/08/18 08:19 [id number] Charges for Administration # of IVP Administrations 1 Metoclopramide HCl (Reglan) 10 mg IVP STAT STA Stop: 07/08/18 07:43 Last Admin: 07/08/18 08:20 Dose: 10 mg IVP Administration Document 07/08/18 08:20 VV (Rec: 07/08/18 08:20 [id number]) Charges for Administration # of IVP Administrations 1 <Vladislav Campbell - Last Filed: 07/08/18 08:37> ED Course and Treatment: 07/08/18 07:59 53 y o male PMhx asthma, HTN, DM2, constipation, presents with worsening constipation and "dry heaves"/nausea x 3 days. Plan: -Labs -VBG -Reglan, Toradol -IVF Will continue to monitor. 07/08/18 08:36 Pt states he wants to leave against medical advice. Risks and benefits of receiving further work-up and treatment were discussed with the pt, which he understands. Instructed to return to the ED if his symptoms recur or worsen. AMA forms signed. - Medication Orders Current Medication Orders: Metoclopramide HCl (Reglan) 10 mg IVP STAT STA Stop: 07/08/18 07:43 <Gavin Hernandez - Last Filed: 07/08/18 08:41> Disposition/Present on Arrival <Vladislav Campbell - Last Filed: 07/08/18 08:37> - Present on Arrival Any Indicators Present on Arrival: No History of DVT/PE: No History of Uncontrolled Diabetes: No Urinary Catheter: No History of Decub. Ulcer: No History Surgical Site Infection Following: None - Disposition Have Diagnosis and Disposition been Completed?: Yes Disposition Time: 08:41 <Gavin Hernandez - Last Filed: 07/08/18 08:41> - Disposition Diagnosis: Abdominal pain, Constipation Disposition: AGAINST MEDICAL ADVICE Condition: UNKNOWN Forms: [employer] (Estonian)
[2018-07-08 08:09] LABS: BASO # 0.08 K/mm3 (0.0-2.0); BASO % 1.2 % (0.0-3.0); EOS # 0.2 (0.0-0.7); EOS % 3.5 % (1.5-5.0); GRAN # 4.09 (1.4-6.5); GRAN % 63.2 % (50.0-68.0); HEMOGLOBIN 13.2 g/dL (14.0-18.0); LYMPH # 1.6 (1.2-3.4); LYMPH % 24.5 % (22.0-35.0); MEAN CELL VOLUME 87.4 fl (80.0-105.0); MEAN CORPUSCULAR HEMOGLOBIN 29.6 pg (25.0-35.0); MEAN CORPUSCULAR HGB CONC 33.8 g/dl (31.0-37.0); MEAN PLATELET VOLUME 12.4 fl (7.0-11.0); MONO # 0.5 (0.1-0.6); MONO % 7.6 % (1.0-6.0); RBC 4.46 10^6/uL (3.5-6.1); RED CELL DISTRIBUTION WIDTH 12.7 % (11.5-14.5); WHITE BLOOD COUNT 6.5 10^3/uL (4.5-11.0)
[2018-07-08 08:12] LABS: VENOUS BLOOD GAS BASE EXCESS 1.9 mmol/L (0.0-2.0); VENOUS BLOOD GAS PO2 52 mm/Hg (30-55); VENOUS BLOOD PH 7.33 (7.32-7.43)
[2018-07-08] MEDS ORDERED: Sodium Chloride 0.9% 1,000 ML IV SCH (08:15)
[2018-07-08 08:29] LABS: ALB/GLOB RATIO 1.1 (1.1-1.8); ALBUMIN 3.7 g/dL (3.0-4.8); ALT/SGPT 29 U/L (7-56); AST/SGOT 31 U/L (17-59); BLOOD UREA NITROGEN 28 mg/dL (7-21); CALCIUM 8.8 mg/dL (8.4-10.5); GFR NON-AFRICAN AMERICAN > 60
[2018-07-08 08:34] LABS: URINE BILIRUBIN NEGATIVE (NEGATIVE); URINE BLOOD SMALL (NEGATIVE); URINE GLUCOSE (UA) 500 mg/dL (NEGATIVE); URINE LEUKOCYTE ESTERASE NEGATIVE Leu/uL (NEGATIVE); URINE PROTEIN 30 mg/dL (<30 mg/dL); URINE UROBILINOGEN 0.2 E.U./dL (<1 E.U./dL)
[2018-07-08 08:35] LABS: URINE APPEARANCE CLEAR (CLEAR); URINE COLOR LIGHT YELLOW (YELLOW)
[2018-07-08 08:47] LABS: URINE RBC 0 - 2 /hpf (0-2)
== END 2018-07-08 08:46 | disposition left against medical advice (07) ==
LOC: ED 07:29
DX: R10.9 Unspecified abdominal pain (principal); K59.00 Constipation, unspecified; I10 Essential (primary) hypertension; E11.9 Type 2 diabetes mellitus without complications; Z85.028 Personal history of other malignant neoplasm of stomach; F17.210 Nicotine dependence, cigarettes, uncomplicated
CPT/HCPCS: 80053; 81001; 82803; 82948; 83735; 85025; 87086; 96374; 96375; 99281; J1885; J2765; J7030

== ENCOUNTER 2018-07-08 10:04 | Emergency (ER) | payer OTHER ==
[2018-07-08 10:04] VITALS: BMI 20.5
[2018-07-08 10:18] VITALS: BP 149/87; PULSE 79; RESP 18; TEMP 98.1; O2SAT 99
--- NOTE | 2018-07-08 10:22 | ED PDOC ---
Arrival/HPI - General Chief Complaint: GI Problem Time Seen by Provider: 07/08/18 10:14 - History of Present Illness Narrative History of Present Illness (Text): 07/08/18 10:38 53 y o male PMhx HTN, asthma, DM2, constipation, presents to the ED c/o worse edith constipation and "dry heaves" x 3 days. States he has been unable to have a BM for about 30 days. Notes associated nausea, states he has taken stool softeners and rectal suppositories without improvement in symptoms. Pt states he follows at the [facility] at [facility] [place], was last seen there on 07/03/18, given a "red pill" to take at bedtime for his constipation which also did not help with his symptoms. Of note, pt also states that he checked his fingerstick at home last night, states it was 400, and stated he tried drinking copious amounts of water to help bring his sugar level down. Pt notes diaphoresis, but denies fever, chills, chest pain, sob, diarrhea, urinary complaints, or other symptoms. Pt well known to our ED, recently AMA'd this am, stating he did not want to stay because his dad fell at home and cracked his head open, and he had to go home to help him into the ambulance. Pt states the pain went away when he was helping his dad, and then came back thus he decided to come to the ED. PMHx: HTN, asthma, DM2, constipation, gastric cancer PSurgHx: appendectomy Allergies: NKDA Home meds: Insulin (pt unsure of dosage or names of other home medications) Fam hx: denies Soc hx: admits to smoking marijuana; denies cigarette smoking or EtOH use PMD: [facility] Time/Duration: Other (30 days) Symptom Course: Unchanged Past Medical History - Provider Review Nursing Documentation Reviewed: Yes - Infectious Disease Hx of Infectious Diseases: None - Tetanus Immunization Tetanus Immunization: Unknown - Cardiac Hx Hypertension: Yes Other/Comment: HTN. - Pulmonary Hx Respiratory Disorders: No - Neurological Hx Neurological Disorder: No - HEENT Hx HEENT Disorder: No - Renal Hx Renal Disorder: No - Endocrine/Metabolic Hx Endocrine Disorders: Yes Hx Diabetes Mellitus Type 2: Yes - Hematological/Oncological Hx Blood Disorders: No Hx Cancer: Yes (stomach) - Integumentary Hx Dermatological Disorder: No - Musculoskeletal/Rheumatological Hx Musculoskeletal Disorders: No - Gastrointestinal Hx Vomiting: Yes (gastropareisis) Other/Comment: gastroparesis - Genitourinary/Gynecological Hx Genitourinary Disorders: No - Psychiatric Hx Psychophysiologic Disorder: Yes Hx Depression: Yes Hx Substance Use: Yes - Surgical History Hx Appendectomy: Yes Hx Orthopedic Surgery: Yes (knee) - Anesthesia Hx Anesthesia: Yes Hx Anesthesia Reactions: No Hx Malignant Hyperthermia: No - Suicidal Assessment Feels Threatened In Home Enviroment: No Family/Social History - Physician Review Nursing Documentation Reviewed: Yes Family/Social History: No Known Family HX Smoking Status: Current Some Days Smoker Hx Alcohol Use: No (occasional wine) Hx Substance Use: Yes Substance used: weed for pain Amount: 1 Hx Substance Use Treatment: No Allergies/Home Meds Allergies/Adverse Reactions: Allergies No Known Allergies Allergy (Verified 07/08/18 10:17) Home Medications: Home Meds Medication Instructions Recorded Confirmed Insulin Glargine, Recombina 4 units SC BID 11/22/14 12/14/14 [Lantus] Atorvastatin [Lipitor] 10 mg PO DIN 08/07/17 08/07/17 Insulin Regular, Human [Novolin R] 8 unit SC BID 08/07/17 08/07/17 Lisinopril [Zestril] 10 mg PO DAILY 08/07/17 08/07/17 MetFORMIN ER [Glucophage XR] 500 mg PO BID 08/07/17 08/07/17 Review of Systems - Physician Review All systems were reviewed & negative as marked: Yes - Review of Systems Cardiovascular: absent: Chest Pain, Palpitations, NUNEZ Gastrointestinal: Abdominal Pain, Stool Changes, Constipation, Nausea. absent: Diarrhea, Vomiting Genitourinary Male: absent: Dysuria, Frequency, Hematuria, Urinary Output Changes Endocrine: Diaphoresis Physical Exam Vital Signs Temp Pulse Resp BP Pulse Ox 07/08/18 10:14 98.1 F 79 18 149/87 99 Temperature: Afebrile Blood Pressure: Hypertensive Pulse: Regular Respiratory Rate: Normal Appearance: Positive for: Non-Toxic, Uncomfortable Pain Distress: Moderate Mental Status: Positive for: Alert and Oriented X 3 - Systems Exam Head: Present: Atraumatic, Normocephalic Pupils: Present: PERRL Extroacular Muscles: Present: EOMI Conjunctiva: Present: Normal Mouth: Present: Moist Mucous Membranes Neck: Present: Normal Range of Motion. No: JVD, Lymphadenopathy Respiratory/Chest: Present: Clear to Auscultation, Good Air Exchange. No: Respiratory Distress, Accessory Muscle Use, Wheezes, Rales, Rhonchi Cardiovascular: Present: Regular Rate and Rhythm, Normal S1, S2. No: Murmurs, Rub, Gallop Abdomen: Present: Distention, Normal Bowel Sounds. No: Tenderness, Peritoneal Signs, Rebound, Guarding, Hernias, Mass/Organomegaly Genitourinary Male: Present: Normal External Genitalia. No: Lesions, Penile Discharge, Testicle Tenderness, Penile Swelling, Masses, Erythema, Hernias, Testicle Swelling Upper Extremity: Present: Normal Inspection, Normal ROM, NORMAL PULSES, Neurovascularly Intact, Capillary Refill < 2s. No: Cyanosis, Edema, Temperature Abnormalties Lower Extremity: Present: Normal Inspection, NORMAL PULSES, Normal ROM, Neurovascularly Intact, Capillary Refill < 2 s. No: Edema, Tenderness, Temperature Abnormalties Neurological: Present: GCS=15, CN II-XII Intact, Speech Normal, Motor Func Grossly Intact Skin: Present: Warm, Dry, Normal Color. No: Rashes Psychiatric: Present: Alert, Oriented x 3, Normal Insight, Normal Concentration Medical Decision Making ED Course and Treatment: 07/08/18 10:43 53 y o male PMHx HTN, asthma, DM2 presenting with constipation. Plan: -Reviewed bloodwork from prior ED visit earlier this am; Cr 0.9. Pt has no elevated WBC ct. -Abd/pelvis CT Will continue to monitor. S/p toradol and reglan on prior ED visit. 07/08/18 12:37 Notified by RN that pt eloped ED without signing AMA forms. Pt stated to RN that he wanted to go home, take 3 Perocets and smoke weed. - RAD Interpretation Radiology Orders: 07/08/18 10:16 ABD & PELVIS IV CONTRAST ONLY [CT] Stat Disposition/Present on Arrival - Present on Arrival Any Indicators Present on Arrival: Yes History of DVT/PE: No History of Uncontrolled Diabetes: Yes Urinary Catheter: No History of Decub. Ulcer: No History Surgical Site Infection Following: None - Disposition Have Diagnosis and Disposition been Completed?: Yes Diagnosis: Colitis Disposition: ELOPEMENT - ER ONLY Disposition Time: 12:39 Condition: UNKNOWN Forms: [employer] (Bel[place]an)
[2018-07-08] MEDS ORDERED: Iohexol 350 MG/100 ML VIAL ONE (10:41)
--- NOTE | 2018-07-08 11:38 | CT ---
Date of service: 07/08/2018 PROCEDURE: CT Abdomen and Pelvis with contrast HISTORY: constipation, abd pain COMPARISON: 05/23/2018 TECHNIQUE: Contrast dose: 100 cc of Omni 350 Radiation dose: Total exam DLP = 650.4 mGy-cm. This CT exam was performed using one or more of the following dose reduction techniques: Automated exposure control, adjustment of the mA and/or kV according to patient size, and/or use of iterative reconstruction technique. FINDINGS: LOWER THORAX: Unremarkable. LIVER: Unremarkable. No gross lesion or ductal dilatation. GALLBLADDER AND BILE DUCTS: Unremarkable. PANCREAS: Unremarkable. No gross lesion or ductal dilatation. SPLEEN: Unremarkable. ADRENALS: Unremarkable. No mass. KIDNEYS AND URETERS: Unremarkable. No hydronephrosis. No solid mass. VASCULATURE: Unremarkable. No aortic aneurysm. No aortic atherosclerotic calcification or mural plaque present. BOWEL: There is mural thickening in the rectosigmoid colon consistent with colitis. APPENDIX: Normal appendix. PERITONEUM: Unremarkable. No free fluid. No free air. LYMPH NODES: Unremarkable. No enlarged lymph nodes. BLADDER: Unremarkable. REPRODUCTIVE: Unremarkable. BONES: No acute fracture. OTHER FINDINGS: None. IMPRESSION: Mural thickening in the rectosigmoid colon consistent with colitis
== END 2018-07-08 12:25 | disposition left against medical advice (07) ==
LOC: ED 10:04
DX: K52.9 Noninfective gastroenteritis and colitis, unspecified (principal); Z85.028 Personal history of other malignant neoplasm of stomach
CPT/HCPCS: 74177; 99283; Q9967

== ENCOUNTER 2018-07-13 05:08 | Emergency (ER) | payer OTHER ==
[2018-07-13 05:08] VITALS: BMI 20.5
[2018-07-13] MEDS ORDERED: Sodium Chloride 0.9% 1,000 ML IV STA (05:53)
[2018-07-13 06:05] LABS: BASO # 0.03 K/mm3 (0.0-2.0); BASO % 0.5 % (0.0-3.0); EOS # 0.2 (0.0-0.7); EOS % 2.9 % (1.5-5.0); GRAN # 3.76 (1.4-6.5); GRAN % 67.8 % (50.0-68.0); HEMOGLOBIN 13.2 g/dL (14.0-18.0); MEAN CELL VOLUME 85.4 fl (80.0-105.0); MEAN CORPUSCULAR HEMOGLOBIN 29.6 pg (25.0-35.0); MEAN CORPUSCULAR HGB CONC 34.6 g/dl (31.0-37.0); MONO # 0.6 (0.1-0.6); MONO % 10.8 % (1.0-6.0); RBC 4.46 10^6/uL (3.5-6.1); RED CELL DISTRIBUTION WIDTH 12.3 % (11.5-14.5); WHITE BLOOD COUNT 5.6 10^3/uL (4.5-11.0)
--- NOTE | 2018-07-13 06:09 | ED PDOC ---
Arrival/HPI - General Chief Complaint: GI Problem Time Seen by Provider: 07/13/18 05:27 Historian: Patient - History of Present Illness Narrative History of Present Illness (Text): 07/13/18 06:00 53 year old male, whose past medical history includes substance abuse, hypertension, diabetes, hypercholestrolemia, diabetic gastroparesis, and gastric cancer, presents to the emergency department complaining of abdominal pain with associated nausea and vomiting for the past few days. Patient states he has been unable to move bowels for 4 days. Patient has been seen here in the ER numerous times for similar complaints. Patient has numerous visits with drug seeking behavior. Patient denies any fever, headache, dizziness, chest pain, or any other complaints at this time. Time/Duration: Prior to Arrival Symptom Course: Unchanged Quality: Stabbing Activities at Onset: Light Past Medical History - Provider Review Nursing Documentation Reviewed: Yes - Infectious Disease Hx of Infectious Diseases: None - Tetanus Immunization Tetanus Immunization: Unknown - Cardiac Hx Hypertension: Yes Other/Comment: HTN. - Pulmonary Hx Respiratory Disorders: No - Neurological Hx Neurological Disorder: No - HEENT Hx HEENT Disorder: No - Renal Hx Renal Disorder: No - Endocrine/Metabolic Hx Endocrine Disorders: Yes Hx Diabetes Mellitus Type 2: Yes - Hematological/Oncological Hx Blood Disorders: No Hx Cancer: Yes (stomach) - Integumentary Hx Dermatological Disorder: No - Musculoskeletal/Rheumatological Hx Musculoskeletal Disorders: No - Gastrointestinal Hx Vomiting: Yes (gastropareisis) Other/Comment: gastroparesis - Genitourinary/Gynecological Hx Genitourinary Disorders: No - Psychiatric Hx Psychophysiologic Disorder: Yes Hx Depression: Yes Hx Substance Use: Yes - Surgical History Hx Appendectomy: Yes Hx Orthopedic Surgery: Yes (knee) - Anesthesia Hx Anesthesia: Yes Hx Anesthesia Reactions: No Hx Malignant Hyperthermia: No - Suicidal Assessment Feels Threatened In Home Enviroment: No Family/Social History - Physician Review Nursing Documentation Reviewed: Yes Family/Social History: No Known Family HX Smoking Status: Current Some Days Smoker Hx Alcohol Use: No (occasional wine) Hx Substance Use: Yes Substance used: weed for pain Amount: 1 Hx Substance Use Treatment: No Allergies/Home Meds Allergies/Adverse Reactions: Allergies No Known Allergies Allergy (Verified 07/13/18 05:17) Home Medications: Home Meds Medication Instructions Recorded Confirmed RX: Insulin Glargine, Recombina 4 units SC BID 11/22/14 12/14/14 [Lantus] Atorvastatin [Lipitor] 10 mg PO DIN 08/07/17 08/07/17 Insulin Regular, Human [Novolin R] 8 unit SC BID 08/07/17 08/07/17 Lisinopril [Zestril] 10 mg PO DAILY 08/07/17 08/07/17 MetFORMIN ER [Glucophage XR] 500 mg PO BID 08/07/17 08/07/17 Review of Systems - Physician Review All systems were reviewed & negative as marked: Yes - Review of Systems Constitutional: absent: Fevers, Night Sweats Cardiovascular: absent: Chest Pain Gastrointestinal: Abdominal Pain, Constipation, Nausea, Vomiting. absent: Diarrhea Neurological: absent: Headache, Dizziness Physical Exam Vital Signs Reviewed: Yes Vital Signs Temp Pulse Resp BP Pulse Ox 07/13/18 05:11 98.7 F 100 H 19 141/86 98 Temperature: Afebrile Blood Pressure: Normal Pulse: Tachycardic Respiratory Rate: Normal Appearance: Positive for: Well-Appearing, Non-Toxic, Uncomfortable Pain Distress: None Mental Status: Positive for: Alert and Oriented X 3 - Systems Exam Head: Present: Atraumatic, Normocephalic Pupils: Present: PERRL Extroacular Muscles: Present: EOMI Conjunctiva: Present: Normal Mouth: Present: Moist Mucous Membranes Neck: Present: Normal Range of Motion Respiratory/Chest: Present: Clear to Auscultation, Good Air Exchange. No: Respiratory Distress, Accessory Muscle Use Cardiovascular: Present: Regular Rate and Rhythm, Normal S1, S2. No: Murmurs Abdomen: Present: Tenderness (Mild diffuse tenderness). No: Distention, Normal Bowel Sounds (increased bowel sounds), Peritoneal Signs, Rebound, Guarding Back: Present: Normal Inspection Upper Extremity: Present: Normal Inspection. No: Cyanosis, Edema Lower Extremity: Present: Normal Inspection. No: Edema Neurological: Present: GCS=15, CN II-XII Intact, Speech Normal Skin: Present: Warm, Dry, Normal Color. No: Rashes Psychiatric: Present: Alert, Oriented x 3, Normal Insight, Normal Concentration Medical Decision Making ED Course and Treatment: 07/13/18 06:13 Impression: 53 year old male presents with abdominal pain and constipation. Plan: -- Labs -- Toradol -- X-ray abdomen -- Reassess and disposition Prior Visits: Notes and results from previous visits were reviewed. Progress Notes: 07/13/18 07:15 Left AMA. Refused to sign AMA documents. - RAD Interpretation Narrative RAD Interpretations (Text): 07/13/18 06:50 AAS negative for free air, obstruction as interpreted by me. Radiology Orders: 07/13/18 05:53 obstructive series [ABD 2 VIEWS (FLAT/UP OR DECUB)] [RAD] Stat Labeling Strategist: ED Physician - Medication Orders Current Medication Orders: Sodium Chloride (Sodium Chloride 0.9%) 1,000 mls @ 1,000 mls/hr IV .Q1H STA Stop: 07/13/18 06:52 Discontinued Medications Ketorolac Tromethamine (Toradol) 30 mg IVP STAT STA Stop: 07/13/18 05:54 - Scribe Statement The provider has reviewed the documentation as recorded by the Scribe Myles Goodrich Provider Scribe Attestation: All medical record entries made by the Scribe were at my direction and personally dictated by me. I have reviewed the chart and agree that the record accurately reflects my personal performance of the history, physical exam, medical decision making, and the department course for this patient. I have also personally directed, reviewed, and agree with the discharge instructions and disposition. Disposition/Present on Arrival - Present on Arrival Any Indicators Present on Arrival: Yes History of DVT/PE: No History of Uncontrolled Diabetes: Yes Urinary Catheter: No History of Decub. Ulcer: No History Surgical Site Infection Following: None - Disposition Have Diagnosis and Disposition been Completed?: Yes Diagnosis: Gastroparesis, Abdominal pain, Hyperglycemia, Left against medical advice, Vomiting Disposition: AGAINST MEDICAL ADVICE Disposition Time: 07:12 Patient Plan: Discharge Condition: STABLE Discharge Instructions (ExitCare): Hyperglycemia, Adult (DC), Nausea and Vomiting, Adult (DC), Gastroparesis (Delayed Gastric Emptying), Leaving Against Medical Advice Additional Instructions: GEOVANY LAI, thank you for letting us take care of you today. Your provider was Kenia Sy MD and you were treated for ABD PAIN. The emergency medical care you received today was directed at your acute symptoms. If you were pres cribed any medication, please fill it and take as directed. It may take several days for your symptoms to resolve. Return to the Emergency Department if your symptoms worsen, do not improve, or if you have any other problems. Please contact your doctor or call one of the physicians/clinics you have been referred to that are listed on the Patient Visit Information form that is included in your discharge packet. Bring any paperwork you were given at discharge with you along with any medications you are taking to your follow up visit. Our treatment cannot replace ongoing medical care by a primary care provider outside of the emergency department. Thank you for allowing the [facility] team to be part of your care today. If you had an X-Ray or CT scan: A Radiologist will review the ED reading if any change in treatment is needed we will contact you. If you had a blood, urine, or wound culture: It will take several days for the results, if any change in treatment is needed we will contact you. If you had an STI test: It will take 48 hours for the results. Please call after 1 week if you have not heard back. Forms: [employer] (Congolese)
[2018-07-13 06:18] LABS: ALB/GLOB RATIO 1.1 (1.1-1.8); ALBUMIN 3.9 g/dL (3.0-4.8); ALT/SGPT 29 U/L (7-56); AST/SGOT 31 U/L (17-59); BLOOD UREA NITROGEN 17 mg/dL (7-21); GFR NON-AFRICAN AMERICAN > 60; LIPASE 18 U/L (23-300)
[2018-07-13 07:21] VITALS: BP 135/79; PULSE 90; RESP 18; O2SAT 99
[2018-07-13 07:23] VITALS: TEMP 98.1
--- NOTE | 2018-07-13 10:53 | RAD ---
Date of service: 07/13/2018 HISTORY: abd pain/constipation/vomiting COMPARISON: 05/23/2018 FINDINGS: BOWEL: Normal. No obstruction. No free air. BONES: Degenerative changes both hips. OTHER FINDINGS: None. IMPRESSION: No significant or acute findings to account for/ related to the clinical presentation. No significant interval change compared to the prior examination(s).
== END 2018-07-13 07:05 | disposition left against medical advice (07) ==
LOC: ED 05:08
DX: E11.65 Type 2 diabetes mellitus with hyperglycemia (principal); E11.43 Type 2 diabetes mellitus with diabetic autonomic (poly)neuropathy; K31.84 Gastroparesis; I10 Essential (primary) hypertension
CPT/HCPCS: 74019; 80053; 83690; 83735; 85025; 96361; 96374; 99283; J1885; J7030

== ENCOUNTER 2018-09-04 10:41 | Emergency (ER) | payer OTHER ==
[2018-09-04 10:41] VITALS: BMI 20.5
[2018-09-04] MEDS ORDERED: Sodium Chloride 0.9% 1,000 ML IV SCH (11:45)
--- NOTE | 2018-09-04 11:57 | ED PDOC ---
Arrival/HPI - General Chief Complaint: Chest Pain Time Seen by Provider: 09/04/18 11:08 Historian: Patient - History of Present Illness Narrative History of Present Illness (Text): 09/04/18 11:33 53 y/o male, with past medical history of hypertension, diabetes, hypercholestrolemia, gastroparesis, and gastric cancer on chemotherapy, presents to the ED complaining of abdominal pain and vomiting for past week. Patient describes a stabbing pain localized to his suprapubic region, improved with smoking marijuana. Patient reports history of similar symptoms and was made aware of elevated blood sugar. Patient additionally reports chest pain described as burning induced from vomiting. Patient reports "black" vomitus but denies any blood. Patient denies any other associated somatic complaints. Patient denies any fevers, chills, headache, dizziness, shortness of breath, dyspnea on exertion, cough, diarrhea, back pain, neck pain, or any other complaints. Patient denies any suicidal or homicidal ideation. PMHx: hypertension, diabetes, hypercholestrolemia, gastric CA PSHx: ??Appendectomy, Gastroparesis Time/Duration: 1 week Symptom Onset: Gradual Symptom Course: Unchanged Activities at Onset: Light Context: Home Past Medical History - Provider Review Nursing Documentation Reviewed: Yes - Infectious Disease Hx of Infectious Diseases: None - Tetanus Immunization Tetanus Immunization: Unknown - Cardiac Hx Hypertension: Yes Other/Comment: HTN. - Pulmonary Hx Respiratory Disorders: No - Neurological Hx Neurological Disorder: No - HEENT Hx HEENT Disorder: No - Renal Hx Renal Disorder: No - Endocrine/Metabolic Hx Endocrine Disorders: Yes Hx Diabetes Mellitus Type 2: Yes - Hematological/Oncological Hx Blood Disorders: No Hx Cancer: Yes (stomach) - Integumentary Hx Dermatological Disorder: No - Musculoskeletal/Rheumatological Hx Musculoskeletal Disorders: No - Gastrointestinal Hx Vomiting: Yes (gastropareisis) Other/Comment: gastroparesis - Genitourinary/Gynecological Hx Genitourinary Disorders: No - Psychiatric Hx Psychophysiologic Disorder: Yes Hx Depression: Yes Hx Substance Use: Yes - Surgical History Hx Appendectomy: Yes Hx Orthopedic Surgery: Yes (knee) - Anesthesia Hx Anesthesia: Yes Hx Anesthesia Reactions: No Hx Malignant Hyperthermia: No - Suicidal Assessment Feels Threatened In Home Enviroment: No Family/Social History - Physician Review Nursing Documentation Reviewed: Yes Family/Social History: No Known Family HX Smoking Status: Current Some Days Smoker Hx Alcohol Use: No (occasional wine) Hx Substance Use: Yes Substance used: weed for pain Amount: 1 Hx Substance Use Treatment: No Allergies/Home Meds Allergies/Adverse Reactions: Allergies No Known Allergies Allergy (Verified 07/13/18 05:17) Home Medications: Home Meds Medication Instructions Recorded Confirmed Insulin Regular, Human [Novolin R] 8 unit SC BID 08/07/17 09/04/18 Review of Systems - Physician Review All systems were reviewed & negative as marked: Yes - Review of Systems Constitutional: absent: Fevers Respiratory: absent: SOB, Cough Cardiovascular: Chest Pain Gastrointestinal: Abdominal Pain, Nausea, Vomiting. absent: Diarrhea Genitourinary Male: absent: Dysuria, Urinary Output Changes Musculoskeletal: absent: Back Pain, Neck Pain Skin: absent: Rash Neurological: absent: Headache, Dizziness Psychiatric: absent: Suicidal Ideation Physical Exam Vital Signs Reviewed: Yes Vital Signs Temp Pulse Resp BP Pulse Ox 09/04/18 11:30 99.4 F 98 H 21 123/90 99 Temperature: Afebrile Blood Pressure: Normal Pulse: Regular Respiratory Rate: Normal Appearance: Positive for: Well-Appearing, Non-Toxic, Comfortable Pain Distress: None Mental Status: Positive for: Alert and Oriented X 3 - Systems Exam Head: Present: Atraumatic, Normocephalic Pupils: Present: PERRL Extroacular Muscles: Present: EOMI Conjunctiva: Present: Normal Mouth: Present: Moist Mucous Membranes Neck: Present: Normal Range of Motion Respiratory/Chest: Present: Clear to Auscultation, Good Air Exchange. No: Respiratory Distress, Accessory Muscle Use Cardiovascular: Present: Regular Rate and Rhythm, Normal S1, S2. No: Murmurs Abdomen: Present: Tenderness (Epigastric tenderness). No: Distention, Peritoneal Signs Back: Present: Normal Inspection Upper Extremity: Present: Normal Inspection. No: Cyanosis, Edema Lower Extremity: Present: Normal Inspection. No: Edema Neurological: Present: GCS=15, CN II-XII Intact, Speech Normal Skin: Present: Warm, Dry, Normal Color. No: Rashes Psychiatric: Present: Alert, Oriented x 3, Normal Insight, Normal Concentration Medical Decision Making ED Course and Treatment: 09/04/18 11:34 Impression: 53 yr old well appearing male w/ hx of gastroparesis, appendicits, drug seeking behavior, abdominal pain p/w abdominal pain, and chest pain following vomiting. Abdominal pain is stabbing, suprapubic and has been going on for greater than a week. Pt notes that he has also been having vomiting, multiple times, associated with chest pain described as burning e very time he vomits. No fall or trauma. No hx of ulcers. No dark or bloody stool. Pt notes he hasnt had a BM in a week. Overall pt is well appearing, tearful but with stable vitals. ?kidney stone vs gastro paresis vs gastritis. No CVAT or peritoneal signs. Plan: -- VBG -- CT of Abdomen/Pelvis -- Labs -- EKG -- CXR -- Pepcid -- Reglan -- IV fluids -- Toradol -- Reassess and disposition Prior Visits: Notes and results from previous visits were reviewed. Patient was last seen in the emergency department on Progress Notes: Pending imaging and labs. 09/04/18 11:34 EKG reviewed, shows NSR at 95 bpm, No STEMI. 09/04/18 13:28 CT of Abdomen/Pelvis reviewed by radiologist, shows: The appendix is mildly dilated measuring 10 mm in diameter. There is mural thickening. There is a small amount of intraluminal air. There is no surrounding inflammatory change. Findings could represent early appendicitis. Clinical correlation is suggested 09/04/18 13:33 paged surgical sales representative for eval. 09/04/18 15:24 cleared by surgical service. No admission req at this time. f/u outpt: pt has had appendectomy previously. Rads to addend report. pt in NAD, tolerating clears indicated to surgical service penile d/c. Penile exam / Testicular exam unre marakble. G/C ordered and RX. Endorsed to use condoms to pt. 09/04/18 16:17 chest pain x1 week intermittently HEART SCORE RF: 2 Story: 0 Age: 1 EK trop: 0 low risk chest pain pt denies any current CP or SOB. Abdomen non-ttp. exam unremarkable. given instructions to f/u w/ cards, gi, pmd. Also endorsed to use condoms during sex and to have partner(s) evaluated for possible std - RAD Interpretation Radiology Orders: 09/04/18 11:34 ABD & PELVIS W/O PO OR IV CONT [CT] Stat CHEST TWO VIEWS (PA/LAT) [RAD] Stat Software Architect: Radiologist - EKG Interpretation Interpreted by ED Physician: Yes Type: 12 lead EKG - Medication Orders Current Medication Orders: Sodium Chloride (Sodium Chloride 0.9%) 1,000 mls @ 100 mls/hr IV .Q10H JOSEPHINE Discontinued Medications Famotidine (Pepcid) 20 mg IVP STAT STA Stop: 09/04/18 11:36 Ketorolac Tromethamine (Toradol) 15 mg IVP STAT STA Stop: 09/04/18 11:37 Metoclopramide HCl (Reglan) 10 mg IVP STAT STA Stop: 09/04/18 11:34 - Scribe Statement The provider has reviewed the documentation as recorded by the Scribe Eddie Davis. All medical record entries made by the Scribe were at my direction and personally dictated by me. I have reviewed the chart and agree that the record accurately reflects my personal performance of the history, physical exam, medical decision making, and the department course for this patient. I have also personally directed, reviewed, and agree with the discharge instructions and disposition. Disposition/Present on Arrival - Present on Arrival Any Indicators Present on Arrival: No History of DVT/PE: No History of Uncontrolled Diabetes: Yes Urinary Catheter: No History of Decub. Ulcer: No History Surgical Site Infection Following: None - Disposition Have Diagnosis and Disposition been Completed?: Yes Diagnosis: Gastritis, Screen for STD (sexually transmitted disease), Chest pain Disposition: HOME/ ROUTINE Disposition Time: 16:19 Patient Problems: Current Active Problems Problem Status Onset Chest pain Acute Gastritis Acute Screen for STD (sexually transmitted disease) Acute Condition: GOOD Discharge Instructions (ExitCare): Screening for Sexually Transmitted Infections, Gastritis, Chest Pain (DC) Additional Instructions: FOLLOW UP WITH A JUNIOR ADMINISTRATIVE ASSISTANT. RETURN IF ANY NEW CHEST PAIN FOLLOW UP WITH A STOMACH DOCTOR. RETURN IF ANY NEW ABDOMINAL PAIN HAVE YOUR PARTNER TREATED FOR POTENTIAL STD. RETURN IF NOT IMPROVING DISCHARGE GEOVANY LAI, thank you for letting us take care of you today. Your provider was Vladislav Campbell and you were treated for chest pain / vomiting. The emergency medical care you received today was directed at your acute symptoms. If you were prescribed any medication, please fill it and take as directed. It may take several days for your symptoms to resolve. Return to the Emergency Department if your symptoms worsen, do not improve, or if you have any other problems. Please contact your doctor or call one of the physicians/clinics you have been referred to that are listed on the Patient Visit Information form that is included in your discharge packet. Bring any paperwork you were given at discharge with you along with any medications you are taking to your follow up visit. Our treatment cannot replace ongoing medical care by a primary care provider outside of the emergency department. Thank you for allowing the [facility] team to be part of your care today. If you had an X-Ray or CT scan: A Radiologist will review the ED reading if any change in treatment is needed we will contact you. If you had a blood, urine, or wound culture: It will take several days for the results, if any change in treatment is needed we will contact you. If you had an STI test: It will take 48 hours for the results. Please call after 1 week if you have not heard back. Referrals: Waqas Childs MD [Staff Provider] - Follow up with primary Rebeca Gimenez MD [Medical Doctor] - Follow up with primary Shahnaz Kelsey MD [Medical Doctor] - Follow up with primary [facility] [Outside] - Follow up with primary [facility] [Outside] - Follow up with primary [facility] [Outside] - Follow up with primary Forms: [employer] (French)
[2018-09-04 12:05] LABS: BASO # 0.02 K/mm3 (0.0-2.0); BASO % 0.1 % (0.0-3.0); EOS # 0.1 (0.0-0.7); EOS % 0.4 % (1.5-5.0); HEMOGLOBIN 14.6 g/dL (14.0-18.0); LYMPH # 1.3 (1.2-3.4); LYMPH % 8.2 % (22.0-35.0); MEAN CELL VOLUME 83.9 fl (80.0-105.0); MEAN CORPUSCULAR HEMOGLOBIN 29.8 pg (25.0-35.0); MEAN CORPUSCULAR HGB CONC 35.5 g/dl (31.0-37.0); MEAN PLATELET VOLUME 12.5 fl (7.0-11.0); MONO # 1.6 (0.1-0.6); MONO % 9.7 % (1.0-6.0); RBC 4.9 10^6/uL (3.5-6.1); RED CELL DISTRIBUTION WIDTH 12.4 % (11.5-14.5); WHITE BLOOD COUNT 16.3 10^3/uL (4.5-11.0)
[2018-09-04 12:06] LABS: VENOUS BLOOD GAS BASE EXCESS 4.2 mmol/L (0.0-2.0); VENOUS BLOOD GAS PO2 119 mm/Hg (30-55); VENOUS BLOOD PH 7.46 (7.32-7.43)
[2018-09-04 12:13] LABS: ALB/GLOB RATIO 1.1 (1.1-1.8); ALT/SGPT 20 U/L (7-56); AST/SGOT 27 U/L (17-59); BLOOD UREA NITROGEN 41 mg/dL (7-21); CALCIUM 8.9 mg/dL (8.4-10.5); GFR NON-AFRICAN AMERICAN > 60; LIPASE 19 U/L (23-300)
[2018-09-04 12:25] LABS: TROPONIN I < 0.01 ng/mL
[2018-09-04] MEDS ORDERED: Iohexol 350 MG/100 ML VIAL ONE (12:44)
--- NOTE | 2018-09-04 13:21 | CT ---
Date of service: 09/04/2018 PROCEDURE: CT Abdomen and Pelvis with contrast HISTORY: epigastric pain, COMPARISON: None. TECHNIQUE: Contrast dose: Radiation dose: Total exam DLP = 454.84 mGy-cm. This CT exam was performed using one or more of the following dose reduction techniques: Automated exposure control, adjustment of the mA and/or kV according to patient size, and/or use of iterative reconstruction technique. FINDINGS: LOWER THORAX: Unremarkable. LIVER: Unremarkable. No gross lesion or ductal dilatation. GALLBLADDER AND BILE DUCTS: Unremarkable. PANCREAS: Unremarkable. No gross lesion or ductal dilatation. SPLEEN: Unremarkable. ADRENALS: Unremarkable. No mass. KIDNEYS AND URETERS: Unremarkable. No hydronephrosis. No solid mass. VASCULATURE: Unremarkable. No aortic aneurysm. No aortic atherosclerotic calcification or mural plaque present. BOWEL: Unremarkable. No obstruction. No gross mural thickening. APPENDIX: The appendix is mildly dilated measuring 10 mm in diameter. There is mural thickening. There is a small amount of intraluminal air. There is no surrounding inflammatory change. Findings could represent early appendicitis. Clinical correlation is suggested PERITONEUM: Unremarkable. No free fluid. No free air. LYMPH NODES: Unremarkable. No enlarged lymph nodes. BLADDER: Unremarkable. REPRODUCTIVE: Unremarkable. BONES: No acute fracture. OTHER FINDINGS: None. IMPRESSION: The appendix is mildly dilated measuring 10 mm in diameter. There is mural thickening. There is a small amount of intraluminal air. There is no surrounding inflammatory change. Findings could represent early appendicitis. Clinical correlation is suggested
[2018-09-04 13:53] LABS: URINE BILIRUBIN NEGATIVE (NEGATIVE); URINE BLOOD SMALL (NEGATIVE); URINE GLUCOSE (UA) >=1000 mg/dL (NEGATIVE); URINE LEUKOCYTE ESTERASE NEGATIVE Leu/uL (NEGATIVE); URINE PROTEIN TRACE mg/dL (<30 mg/dL); URINE UROBILINOGEN 0.2 E.U./dL (<1 E.U./dL)
[2018-09-04 13:55] LABS: URINE APPEARANCE CLEAR (CLEAR); URINE COLOR YELLOW (YELLOW)
--- NOTE | 2018-09-04 13:59 | RAD ---
Date of service: 09/04/2018 HISTORY: cp COMPARISON: 08/27/2017 TECHNIQUE: Chest PA and lateral FINDINGS: LUNGS: No active pulmonary disease. PLEURA: No significant pleural effusion identified. No pneumothorax apparent. CARDIOVASCULAR: No aortic atherosclerotic calcification present. Normal cardiac size. No pulmonary vascular congestion. OSSEOUS STRUCTURES: No significant abnormalities. VISUALIZED UPPER ABDOMEN: Normal. OTHER FINDINGS: None. IMPRESSION: No active disease.
[2018-09-04 14:01] LABS: URINE WBC 0 - 2 /hpf (0-6)
--- NOTE | 2018-09-04 14:41 | CP.PCM.CON ---
History of Present Illness - History of Present Illness History of Present Illness: Surgery consult note, Dr Cardoso Reason for consult: suprapubic abdominal pain/vomiting x4 days 53 y/o male with PMH of HTN, HLD, DM, diabetic gastroparesis, and gastric cancer, diverticulosis, jorge-mora tear presents the ED with suprapubic abdominal pain/vomiting x4 days. Pain is sharp, intermittent, lasts for 1 hour, 5-7/10, no radiation, relieved by hip flexion and marijuana smoking, worsens by ambulation. It's associated with nausea, multiple episodes of vomiting which he reports was dark at times. He also reports subjective fever, urgency, frequent urination and white discharge from his penis. He reports one episode of blood tinged bowel movement and chest pain after vomiting. Patient denied rash, joint pain, headache. 12 points ROS reviewed with positives as above PMH: HTN, HLD, DM, diabetic gastroparesis, and gastric cancer, diverticulosis, jorge-mora tear PSH: appendectomy Meds: insulin All: NKDA SH: uses marijuana, denies alcohol, occasional tobacco use Fh:non contributory Past Patient History - Infectious Disease Hx of Infectious Diseases: None - Tetanus Immunizations Tetanus Immunization: Unknown - Past Medical History & Family History Past Medical History?: Yes - Past Social History Smoking Status: Current Some Days Smoker - CARDIAC Hx Hypertension: Yes Other/Comment: HTN. - PULMONARY Hx Respiratory Disorders: No - NEUROLOGICAL Hx Neurological Disorder: No - HEENT Hx HEENT Problems: No - RENAL Hx Chronic Kidney Disease: No - ENDOCRINE/METABOLIC Hx Endocrine Disorders: Yes Hx Diabetes Mellitus Type 2: Yes - HEMATOLOGICAL/ONCOLOGICAL Hx Blood Disorders: No Hx Cancer: Yes (stomach) - INTEGUMENTARY Hx Dermatological Problems: No - MUSCULOSKELETAL/RHEUMATOLOGICAL Hx Musculoskeletal Disorders: No - GASTROINTESTINAL Hx Vomiting: Yes (gastropareisis) Other/Comment: gastroparesis - GENITOURINARY/GYNECOLOGICAL Hx Genitourinary Disorders: No - PSYCHIATRIC Hx Psychophysiologic Disorder: Yes Hx Depression: Yes Hx Substance Use: Yes - SURGICAL HISTORY Hx Appendectomy: Yes Hx Orthopedic Surgery: Yes (knee) - ANESTHESIA Hx Anesthesia: Yes Hx Anesthesia Reactions: No Hx Malignant Hyperthermia: No Meds Allergies/Adverse Reactions: Allergies Allergy/AdvReac Type Severity Reaction Status Date / Time No Known Allergies Allergy Verified 07/13/18 05:17 - Medications Medications: Current Medications Sodium Chloride (Sodium Chloride 0.9%) 1,000 mls @ 100 mls/hr IV .Q10H JOSEPHINE Last Admin: 09/04/18 12:06 Dose: 100 mls/hr Physical Exam - Constitutional Appears: Well, No Acute Distress - Head Exam Head Exam: ATRAUMATIC, NORMAL INSPECTION, NORMOCEPHALIC - Eye Exam Eye Exam: EOMI, Normal appearance, PERRL Pupil Exam: NORMAL ACCOMODATION, PERRL - Respiratory Exam Respiratory Exam: Clear to Auscultation Bilateral, NORMAL BREATHING PATTERN - Cardiovascular Exam Cardiovascular Exam: REGULAR RHYTHM, +S1, +S2. absent: Gallop, Rubs - GI/Abdominal Exam GI & Abdominal Exam: Normal Bowel Sounds, Soft, Tenderness (suprapubic). absent: Guarding, Hernia, Mass, Organomegaly, Rebound, Rigid - Extremities Exam Extremities exam: Positive for: normal inspection - Back Exam Back exam: NORMAL INSPECTION - Neurological Exam Neurological exam: Alert, Oriented x3 - Psychiatric Exam Psychiatric exam: Normal Affect, Normal Mood - Skin Skin Exam: Dry, Intact, Normal Color, Warm Results - Vital Signs Recent Vital Signs: Last Vital Signs Temp 99.4 F 09/04/18 11:30 Pulse 83 09/04/18 13:00 Resp 14 09/04/18 13:00 BP 128/75 09/04/18 13:00 Pulse Ox 100 09/04/18 13:00 - Labs Result Diagrams: 09/04/18 11:51 09/04/18 11:51 Labs: Laboratory Results - last 24 hr 09/04/18 09/04/18 09/04/18 11:51 11:51 11:55 WBC 16.3 H D RBC 4.90 Hgb 14.6 Hct 41.1 L MCV 83.9 MCH 29.8 MCHC 35.5 RDW 12.4 Plt Count 202 MPV 12.5 H Neut % (Auto) 81.6 H Lymph % (Auto) 8.2 L [place] % (Auto) 9.7 H Eos % (Auto) 0.4 L Baso % (Auto) 0.1 Lymph # (Auto) 1.3 [place] # (Auto) 1.6 H Eos # (Auto) 0.1 Baso # (Auto) 0.02 Absolute Neuts (auto) 13.33 H pO2 119 H VBG pH 7.46 H VBG pCO2 40.0 VBG HCO3 28.4 H VBG Total CO2 29.6 H VBG O2 Sat (Calc) 99.6 H VBG Base Excess 4.2 H VBG Potassium 3.9 Glucose 313 H Lactate 1.5 FiO2 21.0 Sodium 128 L 128.0 L Potassium 4.0 Chloride 88 L 90.0 L Carbon Dioxide 27 Anion Gap 17 BUN 41 H Creatinine 1.0 Est GFR ( Amer) > 60 Est GFR (Non-Af Amer) > 60 Random Glucose 296 H Calcium 8.9 Magnesium 2.1 Total Bilirubin 1.3 AST 27 ALT 20 Alkaline Phosphatase 82 Troponin I < 0.01 Total Protein 7.6 Albumin 4.0 Globulin 3.6 Albumin/Globulin Ratio 1.1 Lipase 19 L Venous Blood Potassium 3.9 Urine Color Urine Appearance Urine pH Ur Specific [place] Urine Protein Urine Glucose (UA) Urine Ketones Urine Blood Urine Nitrate Urine Bilirubin Urine Urobilinogen Ur Leukocyte Esterase Urine RBC Urine WBC Ur Epithelial Cells 09/04/18 13:21 WBC RBC Hgb Hct MCV MCH MCHC RDW Plt Count MPV Neut % (Auto) Lymph % (Auto) Johnston % (Auto) Eos % (Auto) Baso % (Auto) Lymph # (Auto) [place] # (Auto) Eos # (Auto) Baso # (Auto) Absolute Neuts (auto) pO2 VBG pH VBG pCO2 VBG HCO3 VBG Total CO2 VBG O2 Sat (Calc) VBG Base Excess VBG Potassium Glucose Lactate FiO2 Sodium Potassium Chloride Carbon Dioxide Anion Gap BUN Creatinine Est GFR ( Amer) Est GFR (Non-Af Amer) Random Glucose Calcium Magnesium Total Bilirubin AST ALT Alkaline Phosphatase Troponin I Total Protein Albumin Globulin Albumin/Globulin Ratio Lipase Venous Blood Potassium Urine Color Yellow Urine Appearance Clear Urine pH 6.0 Ur Specific [place] 1.015 Urine Protein Trace H Urine Glucose (UA) >=1000 Urine Ketones 15 H Urine Blood Small H Urine Nitrate Negative Urine Bilirubin Negative Urine Urobilinogen 0.2 Ur Leukocyte Esterase Negative Urine RBC 5 - 10 H Urine WBC 0 - 2 Ur Epithelial Cells 3 - 4 Assessment & Plan - Assessment and Plan (Free Text) Assessment: 53 y/o male presents with suprapubic abdominal pain/vomiting x4 days CT A/P: no acute pathology HTN, HLD DM, diabetic gastroparesis gastric cancer diverticulosis jorge-mora tear Plan: -patient afebrile, + leukocytosis, suprapubic pain with penile discharge; likely genitourinary etiology -continue abx, IVF, PPI, antiemetics -no surgical interventions needed at this time -further recs per Dr. Walker Wells, DO
[2018-09-04 15:03] VITALS: O2SAT 99
[2018-09-04] MEDS ORDERED: cefTRIAXone (Rocephin) 250 mg Inj IM STA (15:22)
[2018-09-04 16:46] VITALS: BP 137/87; PULSE 95; RESP 17; TEMP 98.3
--- NOTE | 2018-09-04 20:18 | CARD ---
APPROVED REPORT Date of service: 09/04/2018 EKG Measurement Heart [id number] <Conclusion> Normal sinus rhythm with sinus arrhythmia Nonspecific T wave abnormality, consider inferolateral ischemia Abnormal ECG
== END 2018-09-04 16:45 | disposition home or self-care (01) ==
LOC: ED 10:41
DX: K29.70 Gastritis, unspecified, without bleeding (principal); Z11.3 Encounter for screening for infections with a predominantly sexual mode of transmission; R07.9 Chest pain, unspecified; I10 Essential (primary) hypertension; E11.43 Type 2 diabetes mellitus with diabetic autonomic (poly)neuropathy; K31.84 Gastroparesis; E78.00 Pure hypercholesterolemia, unspecified; Z76.5 Malingerer [conscious simulation]
CPT/HCPCS: 71046; 74177; 80053; 81001; 82803; 83690; 83735; 84484; 85025; 87491; 87591; 93005; 96372; 96374; 96375; 99284; J0696; J1885; J2765; J7030; Q9967

== ENCOUNTER 2018-09-08 07:22 | Inpatient (IN) | payer OTHER ==
[2018-09-08] MEDS ORDERED: Sodium Chloride 0.9% 1,000 ML IV STA (07:37)
--- NOTE | 2018-09-08 07:39 | ED PDOC ---
Arrival/HPI - General Chief Complaint: Abdominal Pain Time Seen by Provider: 09/08/18 07:31 Historian: Patient - History of Present Illness Narrative History of Present Illness (Text): 09/08/18 07:37 A 53 year old male, whose past medical history includes hypertension, diabetes, hypercholestrolemia, gastroparesis, appendectomy (20 yrs ago), and gastric cancer on chemotherapy, presents to the emergency department complaining of chest pain and vomiting. Patient ahs visitied ER multiple times for similar complaints. Complains also of chronic abdominal pain. recent CT reading negative. Has no other complaints at this time. 09/08/18 13:31 Past Medical History - Provider Review Nursing Documentation Reviewed: Yes - Infectious Disease Hx of Infectious Diseases: None - Tetanus Immunization Tetanus Immunization: Unknown - Cardiac Hx Hypertension: Yes Other/Comment: HTN. - Pulmonary Hx Respiratory Disorders: No - Neurological Hx Neurological Disorder: No - HEENT Hx HEENT Disorder: No - Renal Hx Renal Disorder: No - Endocrine/Metabolic Hx Endocrine Disorders: Yes Hx Diabetes Mellitus Type 2: Yes - Hematological/Oncological Hx Blood Disorders: No Hx Cancer: Yes (stomach) - Integumentary Hx Dermatological Disorder: No - Musculoskeletal/Rheumatological Hx Musculoskeletal Disorders: No - Gastrointestinal Hx Vomiting: Yes (gastropareisis) Other/Comment: gastroparesis - Genitourinary/Gynecological Hx Genitourinary Disorders: No - Psychiatric Hx Psychophysiologic Disorder: Yes Hx Depression: Yes Hx Substance Use: Yes - Surgical History Hx Appendectomy: Yes Hx Orthopedic Surgery: Yes (knee) - Anesthesia Hx Anesthesia: Yes Hx Anesthesia Reactions: No Hx Malignant Hyperthermia: No - Suicidal Assessment Feels Threatened In Home Enviroment: No Family/Social History - Physician Review Nursing Documentation Reviewed: Yes Family/Social History: No Known Family HX Smoking Status: Current Some Days Smoker Hx Alcohol Use: No (occasional wine) Hx Substance Use: Yes Substance used: weed for pain Amount: 1 Hx Substance Use Treatment: No Allergies/Home Meds Allergies/Adverse Reactions: Allergies No Known Allergies Allergy (Verified 09/08/18 07:29) Home Medications: Home Meds Medication Instructions Recorded Confirmed Insulin Regular, Human [Novolin R] 8 unit SC BID 08/07/17 09/04/18 Physical Exam Vital Signs Reviewed: Yes Vital Signs Temp Pulse Resp BP Pulse Ox 09/08/18 07:36 97.5 F L 64 18 147/83 100 Temperature: Afebrile Blood Pressure: Normal Pulse: Regular Respiratory Rate: Normal Appearance: Positive for: Well-Appearing, Non-Toxic, Comfortable Pain Distress: None Mental Status: Positive for: Alert and Oriented X 3 - Systems Exam Head: Present: Atraumatic, Normocephalic Pupils: Present: PERRL Extroacular Muscles: Present: EOMI Conjunctiva: Present: Normal Mouth: Present: Moist Mucous Membranes Neck: Present: Normal Range of Motion Respiratory/Chest: Present: Clear to Auscultation, Good Air Exchange. No: Respiratory Distress, Accessory Muscle Use Cardiovascular: Present: Regular Rate and Rhythm, Normal S1, S2. No: Murmurs Abdomen: No: Tenderness, Distention, Peritoneal Signs Back: Present: Normal Inspection Upper Extremity: Present: Normal Inspection. No: Cyanosis, Edema Lower Extremity: Present: Normal Inspection. No: Edema Neurological: Present: GCS=15, CN II-XII Intact, Speech Normal Skin: Present: Warm, Dry, Normal Color. No: Rashes Psychiatric: Present: Alert, Oriented x 3, Normal Insight, Normal Concentration Medical Decision Making ED Course and Treatment: 09/08/18 07:38 Impression: 53 year old male with chronic abdominal pain, chest pain, and vomiting. Physical exam is benign. Plan: -- Abdominal X-Ray -- Urinalysis -- Labs -- Tylenol -- IV Fluids -- Reassess and disposition Prior Visits: Notes and results from previous visits were reviewed. Patient was last here on 09/04/2018 for abdominal pain and vomiting. Patient was discharged home. Progress Notes: EKG: Ordered, reviewed, and independently interpreted the EKG. Rate : 58 BPM Rhythm : Sinus bradycardia Interpretation : No ST-segment elevations or depressions, no T-wave inversions, normal intervals. Comparison : No previous EKG for comparison. 09/08/2018 09:06 Abdominal X-Ray IMPRESSION: Possible mild ileus pattern developing. Non-obstructive bowel gas pattern overall. CT available follow-up if clinically warranted. Dictator: Jeffrey Porter MD 09/08/18 12:58 pt with possible developing ileus will obs for bowel rest, and observation. accepted hospitalist. - Lab Interpretations I have reviewed the lab results: Yes - RAD Interpretation Radiology Orders: 09/08/18 07:33 ABDOMEN MULTIPLE VIEW (w/OBL) [RAD] Stat - Medication Orders Current Medication Orders: Acetaminophen (Tylenol 325mg Tab) 975 mg PO STAT STA Stop: 09/08/18 07:34 - Scribe Statement The provider has reviewed the documentation as recorded by the Alphonse Cueto Provider Scribe Attestation: All medical record entries made by the Scribe were at my direction and personally dictated by me. I have reviewed the chart and agree that the record accurately reflects my personal performance of the history, physical exam, medical decision making, and the department course for this patient. I have also personally directed, reviewed, and agree with the discharge instructions and disposition. Disposition/Present on Arrival - Present on Arrival Any Indicators Present on Arrival: No History of DVT/PE: No History of Uncontrolled Diabetes: Yes Urinary Catheter: No History of Decub. Ulcer: No History Surgical Site Infection Following: None - Disposition Have Diagnosis and Disposition been Completed?: Yes Diagnosis: Abdominal pain Disposition: HOSPITALIZED Disposition Time: 11:00 Patient Problems: Current Active Problems Problem Status Onset Abdominal pain Acute Condition: STABLE
[2018-09-08 08:20] LABS: BASO # 0.03 K/mm3 (0.0-2.0); BASO % 0.5 % (0.0-3.0); EOS # 0.1 (0.0-0.7); EOS % 1.8 % (1.5-5.0); HEMOGLOBIN 13.2 g/dL (14.0-18.0); LYMPH # 1.2 (1.2-3.4); MEAN CELL VOLUME 86.1 fl (80.0-105.0); MEAN CORPUSCULAR HEMOGLOBIN 29.2 pg (25.0-35.0); MEAN CORPUSCULAR HGB CONC 33.9 g/dl (31.0-37.0); MEAN PLATELET VOLUME 12.2 fl (7.0-11.0); MONO # 0.8 (0.1-0.6); MONO % 12.2 % (1.0-6.0); RBC 4.52 10^6/uL (3.5-6.1); RED CELL DISTRIBUTION WIDTH 12.2 % (11.5-14.5); WHITE BLOOD COUNT 6.2 10^3/uL (4.5-11.0)
[2018-09-08 08:28] LABS: ALB/GLOB RATIO 1.1 (1.1-1.8); ALBUMIN 3.6 g/dL (3.0-4.8); ALT/SGPT 16 U/L (7-56); AST/SGOT 26 U/L (17-59); BLOOD UREA NITROGEN 18 mg/dL (7-21); CALCIUM 8.8 mg/dL (8.4-10.5); GFR NON-AFRICAN AMERICAN > 60; LIPASE 18 U/L (23-300)
[2018-09-08 08:32] LABS: INR 1.21; PARTIAL THROMBOPLASTIN TIME 35.3 Seconds (26.9-38.3); PROTHROMBIN TIME 13.7 SECONDS (9.4-12.5)
--- NOTE | 2018-09-08 09:10 | RAD ---
Date of service: 09/08/2018 HISTORY: constipation COMPARISON: 07/13/2018 abdomen obstructive series FINDINGS: BOWEL: Similar pattern of moderate gas distending small-bowel loops at the central and left upper quadrant abdomen with gas and retained fecal material scattered throughout the large bowel. Large-bowel is not collapsed. This is not a bowel obstruction pattern is relatively nonspecific given dilatation of small-bowel loops. Consider possible mild ileus. BONES: Normal. OTHER FINDINGS: None. IMPRESSION: Possible mild ileus pattern developing. Nonobstructive bowel gas pattern overall. CT available follow-up if clinically warranted.
[2018-09-08] MEDS ORDERED: Dextrose 50% SYRINGE Inj (50 ml) IV PRN (09:43)
--- NOTE | 2018-09-08 10:50 | CP.PCM.HP ---
History of Present Illness - History of Present Illness History of Present Illness: H&P for Hospitalist Service: Dr. Lopes CC: Abdominal pain x 1 week HPI: 53 M with a past medical history of HTN, HLD, DM2, and gastroparesis presented to the [facility] ED with complaints of abdominal pain with associated nausea and vomiting. Patient states that his symptoms began approximately a week ago where his diffuse abdominal pain of aching quality progressively worsened over the course of the week prior to arrival. He stated that he has been experiencing bilious emesis for the past couple of days as well as a result of his abdominal pain. He rates it at a 10/10 aching in quality, diffusely in the abdomen. Patient admitted to similar episodes in the past most recently a couple of months ago. He is noncompliant with his medications. He admits to not have a bowel movement for almost 2 weeks. Patient denied fever, chills, shotness of breath, chest pains, diarrhea or dysuria. PMHx: HTN, HLD, DM2, gastritis and gastroparesis PSHx: Appendectomy, knee SHx: Admits to occasional cigarette & wine and smoke marijuana for pain FamHx: Denied Meds: Noncompliant Allergies: NKDA PMD: None - [facility] clinic Present on Admission - Present on Admission Any Indicators Present on Admission: No Review of Systems - Review of Systems Review of Systems: As per HPI otherwise Negative Past Patient History - Infectious Disease Hx of Infectious Diseases: None - Tetanus Immunizations Tetanus Immunization: Unknown - Past Medical History & Family History Past Medical History?: Yes - Past Social History Smoking Status: Current Some Days Smoker - CARDIAC Hx Hypertension: Yes Other/Comment: HTN. - PULMONARY Hx Respiratory Disorders: No - NEUROLOGICAL Hx Neurological Disorder: No - HEENT Hx HEENT Problems: No - RENAL Hx Chronic Kidney Disease: No - ENDOCRINE/METABOLIC Hx Endocrine Disorders: Yes Hx Diabetes Mellitus Type 2: Yes - HEMATOLOGICAL/ONCOLOGICAL Hx Blood Disorders: No Hx Cancer: Yes (stomach) - INTEGUMENTARY Hx Dermatological Problems: No - MUSCULOSKELETAL/RHEUMATOLOGICAL Hx Musculoskeletal Disorders: No - GASTROINTESTINAL Hx Vomiting: Yes (gastropareisis) Other/Comment: gastroparesis - GENITOURINARY/GYNECOLOGICAL Hx Genitourinary Disorders: No - PSYCHIATRIC Hx Psychophysiologic Disorder: Yes Hx Depression: Yes Hx Substance Use: Yes - SURGICAL HISTORY Hx Appendectomy: Yes Hx Orthopedic Surgery: Yes (knee) - ANESTHESIA Hx Anesthesia: Yes Hx Anesthesia Reactions: No Hx Malignant Hyperthermia: No Meds Home Medications: Home Medication List Medication Instructions Recorded Confirmed Type Polyethylene Glycol 3350 [Miralax] 17 gm PO DAILY PRN #1 ml 09/08/18 Rx Allergies/Adverse Reactions: Allergies Allergy/AdvReac Type Severity Reaction Status Date / Time No Known Allergies Allergy Verified 09/08/18 07:29 Physical Exam - Constitutional Appears: No Acute Distress - Head Exam Head Exam: ATRAUMATIC, NORMAL INSPECTION, NORMOCEPHALIC - Eye Exam Eye Exam: EOMI, Normal appearance, PERRL Pupil Exam: NORMAL ACCOMODATION, PERRL - ENT Exam ENT Exam: Mucous Membranes Moist, Normal Exam - Respiratory Exam Respiratory Exam: Clear to Auscultation Bilateral, NORMAL BREATHING PATTERN - Cardiovascular Exam Cardiovascular Exam: REGULAR RHYTHM, +S1, +S2. absent: Rubs - GI/Abdominal Exam GI & Abdominal Exam: Guarding, Hypoactive Bowel Sounds, Tenderness (Diffuse) - Extremities Exam Extremities exam: Positive for: normal inspection - Back Exam Back exam: NORMAL INSPECTION - Neurological Exam Neurological exam: Alert, CN II-XII Intact, Normal Gait, Oriented x3, Reflexes Normal - Psychiatric Exam Psychiatric exam: Anxious - Skin Skin Exam: Dry, Intact, Normal Color, Warm Results - Vital Signs Recent Vital Signs: Last Vital Signs Temp 97.5 F L 09/08/18 07:36 Pulse 56 L 09/08/18 09:41 Resp 16 09/08/18 09:41 BP 136/92 H 09/08/18 09:41 Pulse Ox 99 09/08/18 09:41 - Labs Result Diagrams: 09/08/18 07:40 09/08/18 07:40 Labs: Laboratory Results - last 24 hr 09/08/18 09/08/18 09/08/18 07:40 07:40 07:40 WBC 6.2 D RBC 4.52 Hgb 13.2 L Hct 38.9 L MCV 86.1 MCH 29.2 MCHC 33.9 RDW 12.2 Plt Count 169 MPV 12.2 H Neut % (Auto) 66.5 Lymph % (Auto) 19.0 L [place] % (Auto) 12.2 H Eos % (Auto) 1.8 Baso % (Auto) 0.5 Lymph # (Auto) 1.2 [place] # (Auto) 0.8 H Eos # (Auto) 0.1 Baso # (Auto) 0.03 Absolute Neuts (auto) 4.11 PT 13.7 H INR 1.21 APTT 35.3 Sodium 132 Potassium 3.8 Chloride 94 L Carbon Dioxide 31 Anion Gap 10 BUN 18 Creatinine 1.0 Est GFR ( Amer) > 60 Est GFR (Non-Af Amer) > 60 Random Glucose 129 H Calcium 8.8 Magnesium 1.8 Total Bilirubin 0.9 AST 26 ALT 16 Alkaline Phosphatase 63 Total Protein 6.8 Albumin 3.6 Globulin 3.2 Albumin/Globulin Ratio 1.1 Lipase 18 L Assessment & Plan - Assessment and Plan (Free Text) Assessment: 53 M with a past medical history of HTN, HLD, DM2, and gastroparesis presented to the [facility] ED with complaints of abdominal pain with associated nausea and vomiting admitted for intractable abdominal pain, nausea, and vomiting Abdominal Pain 2/2 gastroparesis 2/2 uncontrolled DM2 - NPO, will advance as tolerated - associated n/v, on reglan - multiple episodes in past - most recent Hgb A1c 13.9 07/2018 - antiemetics with reglan and analgesics avoiding narcotics as not to worsen gastroparesis - will continue to monitor HTN - no home meds - currently normotesnive, on IVF NS @100 - will monitor and reassess DM2 - repeat A1c to confirm - ISS coverage, pt is NPO HLD -fu lipid panel GI/DVT ppx - protonix and heparin Seen reviewed and discussed with attending, Dr. Lopes
[2018-09-08] MEDS: Sodium Chloride 0.9% 1,000 ML IV SCH ×2 (11:11→22:16)
[2018-09-08] MEDS: Insulin Lispro (humaLOG) LOW Coverage SC SCH ×3 (11:30→21:30)
[2018-09-08 15:05] VITALS: BMI 28.8
[2018-09-08] MEDS ORDERED: Influenza Vaccine 60 mcg/0.5 mL SYR (4YR UP) IM ONE (15:06)
[2018-09-08] MEDS ORDERED: Dextrose 50% SYRINGE Inj (50 ml) IVP ONE (17:39)
--- NOTE | 2018-09-09 00:06 | CARD ---
APPROVED REPORT Date of service: 09/08/2018 EKG Measurement Heart [id number] <Conclusion> Sinus bradycardia Septal infarct, age undetermined Abnormal ECG
[2018-09-09] MEDS ORDERED: Morphine 2 mg/ml ISec IVP STA (04:10)
--- NOTE | 2018-09-09 04:17 | CP.PCM.PN ---
<Harley Hamilton - Last Filed: 09/09/18 04:14> Subjective - Date & Time of Evaluation Date of Evaluation: 09/09/18 Time of Evaluation: 04:14 - Subjective Subjective: PGY1 House Doc S: - Paged about abdominal pain - Pt crying in pain, rated 10/10 diffuse abdominal pain. O: - VSS. - Tenderness to even mild palpation of abdomen, laying in position. Tearful on exam. A: - Intractable abdominal pain P: - Given 10mg IVP reglan initially (previously helped in the past) - Pain did not subside after reglan. - Aware to not give narcotic med as per previous progress note, however, patient is in significant discomfort. - morphine 1mg x1 stat dose - Will obtain Abdomen XRay stat. Objective - Vital Signs/Intake and Output Vital Signs (last 24 hours): Temp Pulse Resp BP Pulse Ox 98.9 F 70 20 101/65 98 09/08/18 22:00 09/08/18 22:00 09/08/18 22:00 09/08/18 22:00 09/08/18 22:00 Intake and Output: 09/08/18 09/09/18 18:59 06:59 Intake Total 120 Output Total 250 Balance -130 - Medications Medications: Current Medications Dextrose (Dextrose 50% Inj) 0 ml IV STAT PRN; Protocol PRN Reason: Hypoglycemia Protocol Last Admin: 09/08/18 17:54 Dose: 50 ml Heparin Sodium (Porcine) (Heparin) 5,000 units SC Q8 JOSEPHINE; Protocol Last Admin: 09/08/18 21:32 Dose: 5,000 units Dextrose (Dextrose 5% In Water 1000 Ml) 1,000 mls @ 0 mls/hr IV .Q0M PRN; Protocol PRN Reason: Hypoglycemia Protocol Sodium Chloride (Sodium Chloride 0.9%) 1,000 mls @ 100 mls/hr IV .Q10H JOSEPHINE Last Admin: 09/08/18 22:16 Dose: 100 mls/hr Insulin Human Lispro (Humalog Low) 0 units SC ACHS JOSEPHINE; Protocol Last Admin: 09/08/18 21:30 Dose: Not Given Metoclopramide HCl (Reglan) 10 mg IVP ACHS JOSEPHINE Last Admin: 09/08/18 21:32 Dose: 10 mg Morphine Sulfate (Morphine) 1 mg IVP STAT STA Stop: 09/09/18 04:11 Pantoprazole Sodium (Protonix Inj) 40 mg IVP Q12 JOSEPHINE Last Admin: 09/08/18 21:31 Dose: 40 mg - Labs Labs: 09/08/18 07:40 09/08/18 07:40 PT 13.7 SECONDS (9.4-12.5) H 09/08/18 07:40 INR 1.21 09/08/18 07:40 APTT 35.3 Seconds (26.9-38.3) 09/08/18 07:40 <Jud Yap - Last Filed: 09/09/18 20:24> Objective - Vital Signs/Intake and Output Vital Signs (last 24 hours): Temp Pulse Resp BP Pulse Ox 98.3 F 67 20 124/79 98 09/09/18 06:00 09/09/18 06:00 09/09/18 06:00 09/09/18 06:00 09/09/18 06:00 - Medications Medications: Current Medications Dextrose (Dextrose 50% Inj) 0 ml IV STAT PRN; Protocol PRN Reason: Hypoglycemia Protocol Last Admin: 09/08/18 17:54 Dose: 50 ml Heparin Sodium (Porcine) (Heparin) 5,000 units SC Q8 JOSEPHINE; Protocol Last Admin: 09/09/18 14:20 Dose: 5,000 units Dextrose (Dextrose 5% In Water 1000 Ml) 1,000 mls @ 0 mls/hr IV .Q0M PRN; Protocol PRN Reason: Hypoglycemia Protocol Sodium Chloride (Sodium Chloride 0.9%) 1,000 mls @ 100 mls/hr IV .Q10H JOSEPHINE Last Admin: 09/09/18 08:11 Dose: 100 mls/hr Insulin Human Lispro (Humalog Low) 0 units SC ACHS JOSEPHINE; Protocol Last Admin: 09/09/18 16:59 Dose: Not Given Metoclopramide HCl (Reglan) 10 mg IVP ACHS JOSEPHINE Last Admin: 09/09/18 08:50 Dose: 10 mg Pantoprazole Sodium (Protonix Inj) 40 mg IVP Q12 JOSEPHINE Last Admin: 09/09/18 09:08 Dose: 40 mg - Labs Labs: 09/09/18 08:50 09/09/18 08:50 PT 13.7 SECONDS (9.4-12.5) H 09/08/18 07:40 INR 1.21 09/08/18 07:40 APTT 35.3 Seconds (26.9-38.3) 09/08/18 07:40 Attending/Attestation - Attestation I have personally seen and examined this patient.: No I have fully participated in the care of the patient.: No I have reviewed all pertinent clinical information, including history, physical exam and plan: No
[2018-09-09] MEDS: Sodium Chloride 0.9% 1,000 ML IV SCH ×2 (08:11→18:00)
[2018-09-09] MEDS: Insulin Lispro (humaLOG) LOW Coverage SC SCH ×4 (08:11→22:33)
[2018-09-09] MEDS ORDERED: Morphine 2 mg/ml ISec IVP ONE (08:17)
[2018-09-09] MEDS ORDERED: Alum-Mag Hydrox-Simethicone Susp (30 mL) PO ONE (08:18)
--- NOTE | 2018-09-09 09:14 | RAD ---
Date of service: 09/09/2018 HISTORY: abdominal pain COMPARISON: None available. FINDINGS: BOWEL: Normal. No obstruction. No free air. BONES: Normal. OTHER FINDINGS: None. IMPRESSION: No active disease.
[2018-09-09 09:18] LABS: BASO # 0.02 K/mm3 (0.0-2.0); BASO % 0.3 % (0.0-3.0); EOS # 0.1 (0.0-0.7); EOS % 1.1 % (1.5-5.0); HEMOGLOBIN 13.1 g/dL (14.0-18.0); LYMPH # 1.1 (1.2-3.4); MEAN CELL VOLUME 84.6 fl (80.0-105.0); MEAN CORPUSCULAR HEMOGLOBIN 28.7 pg (25.0-35.0); MEAN CORPUSCULAR HGB CONC 33.9 g/dl (31.0-37.0); MEAN PLATELET VOLUME 12.6 fl (7.0-11.0); MONO # 0.5 (0.1-0.6); MONO % 7.6 % (1.0-6.0); RBC 4.56 10^6/uL (3.5-6.1); RED CELL DISTRIBUTION WIDTH 12.1 % (11.5-14.5); WHITE BLOOD COUNT 6.2 10^3/uL (4.5-11.0)
[2018-09-09 09:52] LABS: ALB/GLOB RATIO 1.1 (1.1-1.8); ALBUMIN 3.4 g/dL (3.0-4.8); ALT/SGPT 18 U/L (7-56); AST/SGOT 22 U/L (17-59); BLOOD UREA NITROGEN 10 mg/dL (7-21); CALCIUM 8.5 mg/dL (8.4-10.5); GFR NON-AFRICAN AMERICAN > 60
[2018-09-09 22:18] LABS: PH,URINE 6.5 (4.7-8.0); URINE BILIRUBIN NEGATIVE (NEGATIVE); URINE BLOOD NEGATIVE (NEGATIVE); URINE GLUCOSE (UA) 500 mg/dL (NEGATIVE); URINE LEUKOCYTE ESTERASE NEGATIVE Leu/uL (NEGATIVE); URINE PROTEIN TRACE mg/dL (<30 mg/dL)
[2018-09-09 22:45] LABS: URINE APPEARANCE CLEAR (CLEAR); URINE COLOR YELLOW (YELLOW)
[2018-09-10] MEDS: Sodium Chloride 0.9% 1,000 ML IV SCH (05:53)
[2018-09-10 07:23] LABS: BASO # 0.03 K/mm3 (0.0-2.0); BASO % 0.5 % (0.0-3.0); EOS # 0.1 (0.0-0.7); EOS % 1.1 % (1.5-5.0); HEMOGLOBIN 12.8 g/dL (14.0-18.0); LYMPH # 1.4 (1.2-3.4); LYMPH % 24.8 % (22.0-35.0); MEAN CELL VOLUME 84.5 fl (80.0-105.0); MEAN CORPUSCULAR HEMOGLOBIN 29.1 pg (25.0-35.0); MEAN CORPUSCULAR HGB CONC 34.4 g/dl (31.0-37.0); MEAN PLATELET VOLUME 12.1 fl (7.0-11.0); MONO # 0.5 (0.1-0.6); MONO % 9.1 % (1.0-6.0); RBC 4.4 10^6/uL (3.5-6.1); RED CELL DISTRIBUTION WIDTH 12.1 % (11.5-14.5); WHITE BLOOD COUNT 5.5 10^3/uL (4.5-11.0)
[2018-09-10 07:56] LABS: ALBUMIN 3.1 g/dL (3.0-4.8); ALT/SGPT 15 U/L (7-56); AST/SGOT 23 U/L (17-59); BLOOD UREA NITROGEN 7 mg/dL (7-21); CALCIUM 8.3 mg/dL (8.4-10.5); GFR NON-AFRICAN AMERICAN > 60
--- NOTE | 2018-09-10 08:33 | CP.PCM.PN ---
Subjective - Date & Time of Evaluation Date of Evaluation: 09/10/18 Time of Evaluation: 08:32 Objective - Vital Signs/Intake and Output Vital Signs (last 24 hours): Temp Pulse Resp BP Pulse Ox 98.5 F 65 21 111/78 98 09/09/18 21:36 09/09/18 21:36 09/09/18 21:36 09/09/18 21:36 09/09/18 21:36 Intake and Output: 09/10/18 09/10/18 06:59 18:59 Intake Total 2400 Balance 2400 - Medications Medications: Current Medications Dextrose (Dextrose 50% Inj) 0 ml IV STAT PRN; Protocol PRN Reason: Hypoglycemia Protocol Last Admin: 09/08/18 17:54 Dose: 50 ml Heparin Sodium (Porcine) (Heparin) 5,000 units SC Q8 JOSEPHINE; Protocol Last Admin: 09/10/18 05:55 Dose: Not Given Dextrose (Dextrose 5% In Water 1000 Ml) 1,000 mls @ 0 mls/hr IV .Q0M PRN; Protocol PRN Reason: Hypoglycemia Protocol Sodium Chloride (Sodium Chloride 0.9%) 1,000 mls @ 100 mls/hr IV .Q10H JOSEPHINE Last Admin: 09/10/18 05:53 Dose: Not Given Insulin Human Lispro (Humalog Low) 0 units SC ACHS JOSEPHINE; Protocol Last Admin: 09/09/18 22:33 Dose: Not Given Metoclopramide HCl (Reglan) 10 mg IVP ACHS JOSEPHINE Last Admin: 09/09/18 21:44 Dose: 10 mg Pantoprazole Sodium (Protonix Inj) 40 mg IVP Q12 JOSEPHINE Last Admin: 09/09/18 21:41 Dose: 40 mg - Labs Labs: 09/10/18 07:05 09/10/18 07:05 PT 13.7 SECONDS (9.4-12.5) H 09/08/18 07:40 INR 1.21 09/08/18 07:40 APTT 35.3 Seconds (26.9-38.3) 09/08/18 07:40
[2018-09-10 08:36] VITALS: RESP 20; O2SAT 97
[2018-09-10] MEDS: Insulin Lispro (humaLOG) LOW Coverage SC SCH ×2 (12:58→17:05)
[2018-09-10 14:59] VITALS: BP 114/72; PULSE 73; TEMP 98.1
--- NOTE | 2018-09-10 15:39 | CP.PCM.DIS ---
<Christofer Martinez - Last Filed: 09/10/18 19:58> Provider - Provider Date of Admission: 09/08/18 09:12 Attending physician: Violeta Rico MD Primary care physician: [place] [facility] Physician Consults: 09/08/18 15:06 Inpatient [facility] Core Measures Referral Routine Comment: cp/vomited blood Physician Instructions: Reason For Exam: assess Transition In Care/Readmission Reduction Routine Comment: cp vomited blood Physician Instructions: Reason For Exam: eval Time Spent in preparation of Discharge (in minutes): 45 Diagnosis - Discharge Diagnosis (1) Gastroparesis Status: Acute Priority: Medium (2) Diabetes type 2, uncontrolled Status: Acute Priority: Medium (3) Abdominal pain Status: Acute Priority: Medium (4) Vomiting Status: Acute Priority: Medium Hospital Course - Lab Results Lab Results: Most Recent Lab Values WBC 5.5 10^3/uL (4.5-11.0) 09/10/18 07:05 RBC 4.40 10^6/uL (3.5-6.1) 09/10/18 07:05 Hgb 12.8 g/dL (14.0-18.0) L 09/10/18 07:05 Hct 37.2 % (42.0-52.0) L 09/10/18 07:05 MCV 84.5 fl (80.0-105.0) 09/10/18 07:05 MCH 29.1 pg (25.0-35.0) 09/10/18 07:05 MCHC 34.4 g/dl (31.0-37.0) 09/10/18 07:05 RDW 12.1 % (11.5-14.5) 09/10/18 07:05 Plt Count 165 10^3/uL (120.0-450.0) 09/10/18 07:05 MPV 12.1 fl (7.0-11.0) H 09/10/18 07:05 Neut % (Auto) 64.5 % (50.0-68.0) 09/10/18 07:05 Lymph % (Auto) 24.8 % (22.0-35.0) 09/10/18 07:05 Quay % (Auto) 9.1 % (1.0-6.0) H 09/10/18 07:05 Eos % (Auto) 1.1 % (1.5-5.0) L 09/10/18 07:05 Baso % (Auto) 0.5 % (0.0-3.0) 09/10/18 07:05 Lymph # (Auto) 1.4 (1.2-3.4) 09/10/18 07:05 Quay # (Auto) 0.5 (0.1-0.6) 09/10/18 07:05 Eos # (Auto) 0.1 (0.0-0.7) 09/10/18 07:05 Baso # (Auto) 0.03 K/mm3 (0.0-2.0) 09/10/18 07:05 Absolute Neuts (auto) 3.53 (1.4-6.5) 09/10/18 07:05 PT 13.7 SECONDS (9.4-12.5) H 09/08/18 07:40 INR 1.21 09/08/18 07:40 APTT 35.3 Seconds (26.9-38.3) 09/08/18 07:40 Sodium 134 mmol/L (132-148) 09/10/18 07:05 Potassium 3.7 mmol/L (3.6-5.0) 09/10/18 07:05 Chloride 101 mmol/L (98-107) 09/10/18 07:05 Carbon Dioxide 27 mmol/L (21-33) 09/10/18 07:05 Anion Gap 9 (10-20) L 09/10/18 07:05 BUN 7 mg/dL (7-21) 09/10/18 07:05 Creatinine 0.7 mg/dl (0.8-1.5) L 09/10/18 07:05 Est GFR ( Amer) > 60 09/10/18 07:05 Est GFR (Non-Af Amer) > 60 09/10/18 07:05 POC Glucose (mg/dL) 274 mg/dL (65-110) H 09/10/18 11:31 Random Glucose 160 mg/dL (70-110) H 09/10/18 07:05 Hemoglobin A1c 11.3 % (4.2-6.5) H 09/08/18 07:40 Calcium 8.3 mg/dL (8.4-10.5) L 09/10/18 07:05 Phosphorus 3.5 mg/dL (2.5-4.5) 09/08/18 07:40 Magnesium 1.8 mg/dL (1.7-2.2) 09/08/18 07:40 Total Bilirubin 0.5 mg/dL (0.2-1.3) 09/10/18 07:05 AST 23 U/L (17-59) 09/10/18 07:05 ALT 15 U/L (7-56) 09/10/18 07:05 Alkaline Phosphatase 57 U/L (38-126) 09/10/18 07:05 Total Protein 6.1 g/dL (5.8-8.3) 09/10/18 07:05 Albumin 3.1 g/dL (3.0-4.8) 09/10/18 07:05 Globulin 3.0 gm/dL 09/10/18 07:05 Albumin/Globulin Ratio 1.0 (1.1-1.8) L 09/10/18 07:05 Triglycerides 77 mg/dL (35-160) 09/08/18 07:40 Cholesterol 155 mg/dL (130-200) 09/08/18 07:40 LDL Cholesterol Direct 92 mg/dL (0-129) 09/08/18 07:40 HDL Cholesterol 40 mg/dL (29-60) 09/08/18 07:40 Lipase 18 U/L (23-300) L 09/08/18 07:40 TSH 3rd Generation 0.25 mIU/mL (0.46-4.68) L 09/08/18 07:40 Urine Color Yellow (YELLOW) 09/09/18 22:10 Urine Appearance Clear (CLEAR) 09/09/18 22:10 Urine pH 6.5 (4.7-8.0) 09/09/18 22:10 Ur Specific [place] 1.025 (1.005-1.035) 09/09/18 22:10 Urine Protein Trace mg/dL (<30 mg/dL) H 09/09/18 22:10 Urine Glucose (UA) 500 mg/dL (NEGATIVE) H 09/09/18 22:10 Urine Ketones 15 mg/dL (NEGATIVE) H 09/09/18 22:10 Urine Blood Negative (NEGATIVE) 09/09/18 22:10 Urine Nitrate Negative (NEGATIVE) 09/09/18 22:10 Urine Bilirubin Negative (NEGATIVE) 09/09/18 22:10 Urine Urobilinogen 2.0 E.U./dL (<1 E.U./dL) H 09/09/18 22:10 Ur Leukocyte Esterase Negative Edie/uL (NEGATIVE) 09/09/18 22:10 Urine RBC TEST NOT PERFORMED 09/09/18 22:10 Urine WBC 2 - 5 /hpf (0-6) 09/09/18 22:10 Ur Epithelial Cells 4 - 5 /hpf (0-5) 09/09/18 22:10 - Hospital Course Hospital Course: PGY1 Discharge Summary and Hospital Course for Dr. Rico On Admission: 53 M with a past medical history of HTN, HLD, DM2, and gastroparesis presented to the [facility] ED with complaints of abdominal pain with associated nausea and vomiting. Patient states that his symptoms began approximately a week ago where his diffuse abdominal pain of aching quality progressively worsened over the course of the week prior to arrival. He stated that he has been experiencing bilious emesis for the past couple of days as well as a result of his abdominal pain. He rates it at a 10/10 aching in quality, diffusely in the abdomen. Patient admitted to similar episodes in the past most recently a couple of months ago. Patient is noncompliant with his medications. Patient admits to not have a bowel movement for almost 2 weeks. For more details please see Patient's complete chart. Patient was subsequently admitted for intractable abdominal pain, nausea, and vomiting secondary to gastroparesis secondary to uncontrolled DMT2. Patient had repeated Abdominal X-rays to reassess for free air under the diaphragm (please see radiology report). Patient was placed NPO, was treated with Reglan and antiemetics to avoid narcotics as to not worsen the gastroparesis. Patient's HgbA1C was 13.9 in July 2018 labs. Patient Patient was also administered fluids and placed on insulin sliding scale. On day of discharge, Patient's diet was advanced to healthy heart diet, and Patient was able to tolerate without nausea/vomiting. Patient was able to ambulate for prolonged time unassisted without issue. Patient endorsed a BM that was non-bloody/non-diarrhea. Please see chart for details. Patient was provided with detailed instructions provided to the Patient both in writing and verbally in the language to the level of Patient's comprehension. All instructions were explained to the patient in detail. Patient both understands and agrees to all instructions. Please see full chart for more detail. Patient wad discharged with the following medications: 1. Miralax 17g powder pack PO PRN x4 days 2. Insulin Glargine,Hum.recanalog 100unit/mL vial 16 unit SQ HS #1 vial 3. Reglan 5mg PO AC #42 Discharge Instructions Provided To Patient: Please follow up with your primary care doctor at the [facility] upon discharge. An appointment has been made for your convenience on 09/27/2018 at 01:00pm. Please contact the clinic if you need to reschedule this appointment or if you have any questions. Please complete all [facility] paperwork prior to your appointment. The clinic's contact information has been provided in this paperwork. You have been given prescriptions for a months worth of your insulin and two weeks worth of Reglan to be taken with each meal. You will need to follow up with your primary care doctor to have these refilled. Please remember to eat small meals throughout the day with adequate chewing of each bite to help food transit. Please take all medications as prescribed. Should your symptoms return, please seek emergency medical advice immediately at your nearest ER Patient was seen and case discussed in detail with Dr. Trisha Martinez PGY1 Discharge Exam - Additional Findings Additional findings: - Constitutional Appears: In no acute distress. Well - Head Exam Head Exam: ATRAUMATIC, NORMAL INSPECTION, NORMOCEPHALIC - Eye Exam Eye Exam: EOMI, Normal appearance, PERRL Pupil Exam: NORMAL ACCOMODATION - Respiratory Exam Respiratory Exam: Clear to Ausculation Bilateral, NORMAL BREATHING PATTERN. absent: Accessory Muscle Use, Prolonged Expiratory Phase, Rales, Rhonchi, Wheezes, Stridor - Cardiovascular Exam Cardiovascular Exam: RRR, +S1, +S2. absent: Gallop, Rubs - GI/Abdominal Exam GI & Abdominal Exam: Soft, Nontender, Normal Bowel Sounds. absent: Distended, Firm, Rigid, Mass, Rebound, guarding, rigid - Extremities Exam Extremities Exam: Normal Capillary Refill, Normal Inspection. absent: Calf Tenderness, Pedal Edema - Back Exam Back Exam: NORMAL INSPECTION. absent: CVA tenderness (L), CVA tenderness (R) - Neurological Exam Neurological Exam: Alert, Awake, Normal Gait, Oriented x3 - Psychiatric Exam Psychiatric exam: Normal Affect, Normal Mood - Skin Skin Exam: Dry, Normal Color, Warm Discharge Plan - Discharge Medications Prescriptions: Insulin Glargine,Hum.rec.anlog [Lantus] 16 unit SQ HS #1 vial Metoclopramide [Reglan] 5 mg PO AC #42 tab - Follow Up Plan Condition: STABLE Disposition: HOME/ ROUTINE Instructions: Insulin NPH and Insulin Regular, Diabetes Type 2 (DC), Gastroparesis (Delayed Gastric Emptying) (DC), Metoclopramide, Acute Abdominal Pain (DC), Acute Abdominal Pain (GEN) Additional Instructions: Please follow up with your primary care doctor at the [facility] upon discharge. An appointment has been made for your convenience on 09/27/2018 at 01:00pm. Please contact the clinic if you need to reschedule this appointment or if you have any questions. Please complete all [facility] paperwork prior to your appointment. The clinic's contact information has been provided in this paperwork. You have been given prescriptions for a months worth of your insulin and two weeks worth of Reglan to be taken with each meal. You will need to follow up with your primary care doctor to have these refilled. Please remember to eat small meals throughout the day with adequate chewing of each bite to help food transit. Please take all medications as prescribed. Should your symptoms return, please seek emergency medical advice immediately at your nearest ER. Referrals: [facility] [Outside] <Violeta Rico - Last Filed: 09/11/18 06:23> Provider - Provider Date of Admission: 09/08/18 09:12 Attending physician: Violeta Rico MD Consults: 09/08/18 15:06 Inpatient [facility] Core Measures Referral Routine Comment: cp/vomited blood Physician Instructions: Reason For Exam: assess Transition In Care/Readmission Reduction Routine Comment: cp vomited blood Physician Instructions: Reason For Exam: eval Hospital Course - Lab Results Lab Results: Most Recent Lab Values WBC 5.5 10^3/uL (4.5-11.0) 09/10/18 07:05 RBC 4.40 10^6/uL (3.5-6.1) 09/10/18 07:05 Hgb 12.8 g/dL (14.0-18.0) L 09/10/18 07:05 Hct 37.2 % (42.0-52.0) L 09/10/18 07:05 MCV 84.5 fl (80.0-105.0) 09/10/18 07:05 MCH 29.1 pg (25.0-35.0) 09/10/18 07:05 MCHC 34.4 g/dl (31.0-37.0) 09/10/18 07:05 RDW 12.1 % (11.5-14.5) 09/10/18 07:05 Plt Count 165 10^3/uL (120.0-450.0) 09/10/18 07:05 MPV 12.1 fl (7.0-11.0) H 09/10/18 07:05 Neut % (Auto) 64.5 % (50.0-68.0) 09/10/18 07:05 Lymph % (Auto) 24.8 % (22.0-35.0) 09/10/18 07:05 Quay % (Auto) 9.1 % (1.0-6.0) H 09/10/18 07:05 Eos % (Auto) 1.1 % (1.5-5.0) L 09/10/18 07:05 Baso % (Auto) 0.5 % (0.0-3.0) 09/10/18 07:05 Lymph # (Auto) 1.4 (1.2-3.4) 09/10/18 07:05 Quay # (Auto) 0.5 (0.1-0.6) 09/10/18 07:05 Eos # (Auto) 0.1 (0.0-0.7) 09/10/18 07:05 Baso # (Auto) 0.03 K/mm3 (0.0-2.0) 09/10/18 07:05 Absolute Neuts (auto) 3.53 (1.4-6.5) 09/10/18 07:05 PT 13.7 SECONDS (9.4-12.5) H 09/08/18 07:40 INR 1.21 09/08/18 07:40 APTT 35.3 Seconds (26.9-38.3) 09/08/18 07:40 Sodium 134 mmol/L (132-148) 09/10/18 07:05 Potassium 3.7 mmol/L (3.6-5.0) 09/10/18 07:05 Chloride 101 mmol/L (98-107) 09/10/18 07:05 Carbon Dioxide 27 mmol/L (21-33) 09/10/18 07:05 Anion Gap 9 (10-20) L 09/10/18 07:05 BUN 7 mg/dL (7-21) 09/10/18 07:05 Creatinine 0.7 mg/dl (0.8-1.5) L 09/10/18 07:05 Est GFR ( Amer) > 60 09/10/18 07:05 Est GFR (Non-Af Amer) > 60 09/10/18 07:05 POC Glucose (mg/dL) 229 mg/dL (65-110) H 09/10/18 16:05 Random Glucose 160 mg/dL (70-110) H 09/10/18 07:05 Hemoglobin A1c 11.3 % (4.2-6.5) H 09/08/18 07:40 Calcium 8.3 mg/dL (8.4-10.5) L 09/10/18 07:05 Phosphorus 3.5 mg/dL (2.5-4.5) 09/08/18 07:40 Magnesium 1.8 mg/dL (1.7-2.2) 09/08/18 07:40 Total Bilirubin 0.5 mg/dL (0.2-1.3) 09/10/18 07:05 AST 23 U/L (17-59) 09/10/18 07:05 ALT 15 U/L (7-56) 09/10/18 07:05 Alkaline Phosphatase 57 U/L (38-126) 09/10/18 07:05 Total Protein 6.1 g/dL (5.8-8.3) 09/10/18 07:05 Albumin 3.1 g/dL (3.0-4.8) 09/10/18 07:05 Globulin 3.0 gm/dL 09/10/18 07:05 Albumin/Globulin Ratio 1.0 (1.1-1.8) L 09/10/18 07:05 Triglycerides 77 mg/dL (35-160) 09/08/18 07:40 Cholesterol 155 mg/dL (130-200) 09/08/18 07:40 LDL Cholesterol Direct 92 mg/dL (0-129) 09/08/18 07:40 HDL Cholesterol 40 mg/dL (29-60) 09/08/18 07:40 Lipase 18 U/L (23-300) L 09/08/18 07:40 TSH 3rd Generation 0.25 mIU/mL (0.46-4.68) L 09/08/18 07:40 Urine Color Yellow (YELLOW) 09/09/18 22:10 Urine Appearance Clear (CLEAR) 09/09/18 22:10 Urine pH 6.5 (4.7-8.0) 09/09/18 22:10 Ur Specific [place] 1.025 (1.005-1.035) 09/09/18 22:10 Urine Protein Trace mg/dL (<30 mg/dL) H 09/09/18 22:10 Urine Glucose (UA) 500 mg/dL (NEGATIVE) H 09/09/18 22:10 Urine Ketones 15 mg/dL (NEGATIVE) H 09/09/18 22:10 Urine Blood Negative (NEGATIVE) 09/09/18 22:10 Urine Nitrate Negative (NEGATIVE) 09/09/18 22:10 Urine Bilirubin Negative (NEGATIVE) 09/09/18 22:10 Urine Urobilinogen 2.0 E.U./dL (<1 E.U./dL) H 09/09/18 22:10 Ur Leukocyte Esterase Negative Edie/uL (NEGATIVE) 09/09/18 22:10 Urine RBC TEST NOT PERFORMED 09/09/18 22:10 Urine WBC 2 - 5 /hpf (0-6) 09/09/18 22:10 Ur Epithelial Cells 4 - 5 /hpf (0-5) 09/09/18 22:10 Attending/Attestation - Attestation I have personally seen and examined this patient.: Yes I have fully participated in the care of the patient.: Yes I have reviewed all pertinent clinical information, including history, physical exam and plan: Yes Notes (Text): 09/10/18 53 year old male with past medical history of hypertension, diabetes and gastroparesis who presented with complaint of abdominal pain with nausea and vomiting, likely secondary to exacerbation of gastroparesis. Patient was initially NPO with iv fluids and antiemetics. Symptoms improved with reglan and his diet was advanced which he tolerated today. Patient is discharged home to follow up at [facility]. Counselled on medication compliance and controlling underlying diabetes. Violeta Rico MD Hospitalist.
--- NOTE | 2018-09-10 19:14 | CP.PCM.PN ---
Subjective - Date & Time of Evaluation Date of Evaluation: 09/09/18 Time of Evaluation: 12:00 - Subjective Subjective: Yun Richards, PGY-[address] Lopes: Pt was seen and examined this AM at bedside. Pt states that his abdominal pain is not well controlled and states that he has been up since 2 am with sharp abdominal pain in the RUQ. Pt had abd XR done yesterday which did not show any free air under the diaphragm. Pt states that though he understands that morphine would make his gastroparesis worse, it is the only pain medication that would help him. He continues to admit to nausea, and no appetite. Pt is currently NPO. Objective - Vital Signs/Intake and Output Vital Signs (last 24 hours): Temp Pulse Resp BP Pulse Ox 98.1 F 73 20 114/72 97 09/10/18 14:00 09/10/18 14:00 09/10/18 14:00 09/10/18 14:00 09/10/18 14:00 Intake and Output: 09/10/18 09/10/18 06:59 18:59 Intake Total 2400 500 Balance 2400 500 - Labs Labs: 09/10/18 07:05 09/10/18 07:05 PT 13.7 SECONDS (9.4-12.5) H 09/08/18 07:40 INR 1.21 09/08/18 07:40 APTT 35.3 Seconds (26.9-38.3) 09/08/18 07:40 - Constitutional Appears: Other (uncomfortable, in position, tearful) - Head Exam Head Exam: ATRAUMATIC, NORMAL INSPECTION, NORMOCEPHALIC - Eye Exam Eye Exam: EOMI, Normal appearance, PERRL Pupil Exam: NORMAL ACCOMODATION - Respiratory Exam Respiratory Exam: Clear to Ausculation Bilateral, NORMAL BREATHING PATTERN. absent: Accessory Muscle Use, Prolonged Expiratory Phase, Rales, Rhonchi, Wheezes, Stridor - Cardiovascular Exam Cardiovascular Exam: RRR, +S1, +S2. absent: Gallop, Rubs - GI/Abdominal Exam GI & Abdominal Exam: Guarding, Soft, Tenderness (Diffuse tenderness, worse in the RUQ), Normal Bowel Sounds. absent: Distended, Firm, Rigid, Mass, Rebound - Extremities Exam Extremities Exam: Normal Capillary Refill, Normal Inspection. absent: Calf Tenderness, Pedal Edema - Back Exam Back Exam: NORMAL INSPECTION. absent: CVA tenderness (L), CVA tenderness (R) - Neurological Exam Neurological Exam: Alert, Awake, Normal Gait, Oriented x3 - Psychiatric Exam Psychiatric exam: Normal Affect, Normal Mood - Skin Skin Exam: Dry, Normal Color, Warm Assessment and Plan - Assessment and Plan (Free Text) Assessment: 53 M with a past medical history of HTN, HLD, DM2, and gastroparesis presented to the [facility] [place] with complaints of abdominal pain with associated nausea and vomiting admitted for intractable abdominal pain, nausea, and vomiting. Pt is being admitted for gastroparesis. Plan: Abdominal Pain 2/2 gastroparesis 2/2 uncontrolled DM2: - NPO, will advance as tolerated - pt attempted CLD because he was hungry but then became nauseous again and had return of abd pain. - associated n/v, on reglan - multiple episodes in past - most recent Hgb A1c 11.3 08/2018 - antiemetics with reglan and analgesics avoiding narcotics as not to worsen gastroparesis - Repeat Abd XR to re-assess for free air under diaphragm - will continue to monitor HTN - no home meds - currently normotesnive, on IVF NS @100 - will monitor and reassess DM2 - repeat A1c to confirm - ISS coverage, pt is NPO HLD -fu lipid panel GI/DVT ppx - protonix and heparin Seen reviewed and discussed with attending, Dr. Lopes
== END 2018-09-10 17:46 | disposition home or self-care (01) | DRG 48 ==
LOC: ED 07:22 → ERH 09:12 → 5RSO 10:48
PROVIDERS: ADMIT Internal Medicine; ATTEND Internal Medicine
DX: E11.43 Type 2 diabetes mellitus with diabetic autonomic (poly)neuropathy (principal); I10 Essential (primary) hypertension; K31.84 Gastroparesis; G89.29 Other chronic pain; F12.90 Cannabis use, unspecified, uncomplicated; E78.00 Pure hypercholesterolemia, unspecified; Z91.14 Patient's other noncompliance with medication regimen; Z85.028 Personal history of other malignant neoplasm of stomach

== ENCOUNTER 2018-09-11 13:00 | Emergency (ER) | payer OTHER ==
[2018-09-11 13:38] VITALS: RESP 18
[2018-09-11 13:39] VITALS: BMI 26.9
[2018-09-11] MEDS ORDERED: Sodium Chloride 0.9% 1,000 ML IV STA ×2 (13:48→18:06)
--- NOTE | 2018-09-11 13:55 | ED PDOC ---
Arrival/HPI - General Chief Complaint: Abdominal Pain Time Seen by Provider: 09/11/18 13:06 Historian: Patient - History of Present Illness Narrative History of Present Illness (Text): 09/11/18 13:54 53 year old male, with a past medical history of HTN, HLD, DM2, and gastroparesis [place] [facility] [place] with complaints of abdominal pain with associated nausea and vomiting since few days. Patient reports associated constipation with no bowel movement for last 14 days. Patient reports localized abdominal pain to his suprapubic region but denies any urinary complaints. Patient was recently admitted to the hospital for similar complaints and was discharged home yesterday after improvement. Patient denies any other associated somatic complaints. Patient denies any fevers, chills, headache, dizziness, chest pain, shortness of breath, dyspnea on exertion, cough, diarrhea, back pain, neck pain, or any other complaints. Time/Duration: < week Symptom Onset: Gradual Symptom Course: Unchanged Activities at Onset: Light Context: Home Past Medical History - Provider Review Nursing Documentation Reviewed: Yes - Infectious Disease Hx of Infectious Diseases: None - Tetanus Immunization Tetanus Immunization: Unknown - Cardiac Hx Cardiac Disorders: Yes (chest pain) Hx Hypertension: Yes Other/Comment: HTN. - Pulmonary Hx Respiratory Disorders: Yes Hx Asthma: Yes - Neurological Hx Neurological Disorder: No - HEENT Hx HEENT Disorder: No - Renal Hx Renal Disorder: No - Endocrine/Metabolic Hx Endocrine Disorders: Yes Hx Diabetes Mellitus Type 2: Yes - Hematological/Oncological Hx Blood Disorders: Yes Hx Cancer: Yes (stomach dx 3 yrs ago) Hx Chemotherapy: Yes (ongoing once a week) Other/Comment: completed radiation - Integumentary Hx Dermatological Disorder: Yes Other/Comment: multiple skin discolortions ble, dry skin both feet, thick hard dry toenails, healed scar x 2 right hand from old injury, discolored skin left hand - Musculoskeletal/Rheumatological Hx Musculoskeletal Disorders: No - Gastrointestinal Hx Gastrointestinal Disorders: Yes (weight loss, poor appetite) Hx Diverticulitis: Yes Other/Comment: gastroparesis, constipation, diverticulitis, chronic abd pain, duodenitis. pt has been only able to drink some water and soup the last 4 months - Genitourinary/Gynecological Hx Genitourinary Disorders: No - Psychiatric Hx Psychophysiologic Disorder: Yes Hx Anxiety: Yes Hx Depression: Yes Hx Substance Use: Yes (marijuana prn for abd pain) - Surgical History Hx Appendectomy: Yes (20 yrs ago) Hx Orthopedic Surgery: (pt denies knee sx) - Anesthesia Hx Anesthesia: Yes Hx Anesthesia Reactions: No Hx Malignant Hyperthermia: No - Suicidal Assessment Feels Threatened In Home Enviroment: No Family/Social History - Physician Review Nursing Documentation Reviewed: Yes Family/Social History: No Known Family HX Smoking Status: Never Smoked Hx Alcohol Use: Yes (stopped 10 yrs ago occ wine) Hx Substance Use: Yes (marijuana prn for abd pain) Substance used: weed for pain Amount: 1 Hx Substance Use Treatment: No Allergies/Home Meds Allergies/Adverse Reactions: Allergies No Known Allergies Allergy (Verified 09/11/18 13:39) Home Medications: Home Meds Medication Instructions Recorded Confirmed RX: Polyethylene Glycol 3350 17 gm PO PRN PRN 09/08/18 09/11/18 [Miralax] Review of Systems - Physician Review All systems were reviewed & negative as marked: Yes - Review of Systems Constitutional: absent: Fevers Respiratory: absent: SOB, Cough Cardiovascular: absent: Chest Pain Gastrointestinal: Abdominal Pain, Nausea, Vomiting. absent: Diarrhea Genitourinary Male: absent: Dysuria, Urinary Output Changes Musculoskeletal: absent: Back Pain, Neck Pain Skin: absent: Rash Neurological: absent: Headache, Dizziness Physical Exam Vital Signs Reviewed: Yes Vital Signs Temp Pulse Resp Pulse Ox 09/11/18 13:38 98.4 F 64 18 100 Temperature: Afebrile Blood Pressure: Normal Pulse: Regular Respiratory Rate: Normal Appearance: Positive for: Well-Appearing, Non-Toxic, Comfortable Pain Distress: None Mental Status: Positive for: Alert and Oriented X 3 - Systems Exam Head: Present: Atraumatic, Normocephalic Pupils: Present: PERRL Extroacular Muscles: Present: EOMI Conjunctiva: Present: Normal Mouth: Present: Moist Mucous Membranes Respiratory/Chest: Present: Clear to Auscultation, Good Air Exchange. No: Respiratory Distress, Accessory Muscle Use Cardiovascular: Present: Regular Rate and Rhythm, Normal S1, S2. No: Murmurs Abdomen: Present: Tenderness (Tenderness to suprapubic region). No: Distention, Peritoneal Signs, Rebound, Guarding Upper Extremity: Present: Normal Inspection. No: Cyanosis, Edema Lower Extremity: Present: Normal Inspection. No: Edema Neurological: Present: GCS=15, CN II-XII Intact, Speech Normal Skin: Present: Warm, Dry, Normal Color. No: Rashes Psychiatric: Present: Alert, Oriented x 3, Normal Insight, Normal Concentration Medical Decision Making ED Course and Treatment: 09/11/18 14:00 Impression: 53 year old male presents to the ED for evaluation of abdominal pain, nausea and vomiting. Plan: -- Labs -- Reglan -- IV Fluids -- Urine Culture -- X-ray of Abdomen -- Urinalysis -- Reassess and disposition Prior Visits: Notes and results from previous visits were reviewed. Progress Notes: 09/11/18 16:08 X-ray of Abdomen reviewed by radiologist, shows no active disease. 09/11/18 16:32 Upon reassessment, patient informs improved symptoms and is resting comfortably. Pending Urinalysis. 09/11/18 17:17 Urinalysis shows few RBCs, unchanged from previous, otherwise negative. 09/11/18 17:23 Patient was made aware of results. Patient reports no new episodes of vomiting and states feeling fine. Patient will be PO challenged. 09/11/18 17:53 Patient tolerated PO well. Patient is stable to be discharged home with follow- up instructions with PMD. 09/11/18 18:07 Patient informs feeling nauseous after drinking orange juice. Will order zofran. - RAD Interpretation Radiology Orders: 09/11/18 13:48 ABD 2 VIEWS (FLAT/UP OR DECUB) [RAD] Stat - Medication Orders Current Medication Orders: Sodium Chloride (Sodium Chloride 0.9%) 1,000 mls @ 1,000 mls/hr IV .Q1H STA Stop: 09/11/18 14:47 Discontinued Medications Metoclopramide HCl (Reglan) 10 mg IVP STAT STA Stop: 09/11/18 13:49 - Transfer of Care Patient signed out to Dr:: Lynette Other: reassessment after ivf/zofran and dispostion - Scribe Statement The provider has reviewed the documentation as recorded by the Scribe Eddie Davis. All medical record entries made by the Scribe were at my direction and personally dictated by me. I have reviewed the chart and agree that the record accurately reflects my personal performance of the history, physical exam, medical decision making, and the department course for this patient. I have also personally directed, reviewed, and agree with the discharge instructions and disposition. Disposition/Present on Arrival - Present on Arrival Any Indicators Present on Arrival: No History of DVT/PE: No History of Uncontrolled Diabetes: No Urinary Catheter: No History of Decub. Ulcer: No History Surgical Site Infection Following: None - Disposition Have Diagnosis and Disposition been Completed?: No Diagnosis: Abdominal pain, Gastroparesis, Vomiting Disposition Time: 19:00 Condition: STABLE Forms: [employer] (Haitian)
[2018-09-11 14:41] LABS: BASO # 0.03 K/mm3 (0.0-2.0); BASO % 0.4 % (0.0-3.0); EOS # 0.1 (0.0-0.7); EOS % 1.7 % (1.5-5.0); HEMOGLOBIN 13.7 g/dL (14.0-18.0); LYMPH # 1.3 (1.2-3.4); MEAN CELL VOLUME 84.7 fl (80.0-105.0); MEAN CORPUSCULAR HEMOGLOBIN 29.5 pg (25.0-35.0); MEAN CORPUSCULAR HGB CONC 34.9 g/dl (31.0-37.0); MEAN PLATELET VOLUME 12.2 fl (7.0-11.0); MONO # 0.5 (0.1-0.6); MONO % 6.5 % (1.0-6.0); RBC 4.64 10^6/uL (3.5-6.1); RED CELL DISTRIBUTION WIDTH 12.4 % (11.5-14.5); WHITE BLOOD COUNT 7.2 10^3/uL (4.5-11.0)
[2018-09-11 14:53] LABS: ALB/GLOB RATIO 1.1 (1.1-1.8); ALT/SGPT 20 U/L (7-56); AST/SGOT 43 U/L (17-59); BLOOD UREA NITROGEN 11 mg/dL (7-21); CALCIUM 9.2 mg/dL (8.4-10.5); GFR NON-AFRICAN AMERICAN > 60; LIPASE 20 U/L (23-300)
--- NOTE | 2018-09-11 15:59 | RAD ---
Date of service: 09/11/2018 HISTORY: abd pain COMPARISON: None available. FINDINGS: BOWEL: Normal. No obstruction. No free air. BONES: Normal. OTHER FINDINGS: None. IMPRESSION: No active disease.
[2018-09-11 17:10] LABS: URINE BILIRUBIN NEGATIVE (NEGATIVE); URINE BLOOD TRACE-INTACT (NEGATIVE); URINE GLUCOSE (UA) NEGATIVE (NEGATIVE); URINE LEUKOCYTE ESTERASE NEGATIVE Leu/uL (NEGATIVE); URINE PROTEIN NEGATIVE mg/dL (<30 mg/dL); URINE UROBILINOGEN 0.2 E.U./dL (<1 E.U./dL)
[2018-09-11 17:12] LABS: URINE APPEARANCE CLEAR (CLEAR); URINE COLOR YELLOW (YELLOW)
--- NOTE | 2018-09-11 19:02 | ED PDOC ---
Physical Exam Vital Signs Reviewed: Yes Vital Signs Temp Pulse Resp BP Pulse Ox 09/11/18 18:40 61 18 108/70 100 09/11/18 17:06 55 L 18 113/59 L 100 09/11/18 15:32 51 L 18 116/61 97 09/11/18 13:38 98.4 F 64 18 184/65 H 100 Temperature: Afebrile Blood Pressure: Normal Pulse: Regular Respiratory Rate: Normal Appearance: Positive for: Well-Appearing, Non-Toxic, Comfortable Pain Distress: None Mental Status: Positive for: Alert and Oriented X 3 Finger Stick Blood Glucose: 72 - Systems Exam Head: Present: Atraumatic, Normocephalic Pupils: Present: PERRL Extroacular Muscles: Present: EOMI Conjunctiva: Present: Normal Respiratory/Chest: Present: Clear to Auscultation, Good Air Exchange. No: Respiratory Distress, Accessory Muscle Use Cardiovascular: Present: Regular Rate and Rhythm, Normal S1, S2. No: Murmurs Abdomen: No: Tenderness, Distention, Peritoneal Signs Upper Extremity: Present: Normal Inspection. No: Cyanosis, Edema Lower Extremity: Present: Normal Inspection. No: Edema Neurological: Present: GCS=15, CN II-XII Intact, Speech Normal Skin: Present: Warm, Dry, Normal Color. No: Rashes Psychiatric: Present: Alert, Oriented x 3, Normal Insight, Normal Concentration Medical Decision Making ED Course and Treatment: 09/11/18 19:01 Case endorsed to me by Dr. Sy for pending reassessment and final disposit ion. Patient is a 53 year old male, who presented to the ED earlier for evaluation of abdominal pain, nausea and vomiting. Patient is currently resting in bed in no acute distress. Patient currently presents no new medical complaints. 09/11/18 19:45 On re-evaluation, pt states he feels much better and is in no acute distress. Patient is stable for discharge. Patient was instructed to follow up with physician or return if symptoms worsen or new concerning symptoms arise. - Lab Interpretations Lab Results: Total Bilirubin 0.4 mg/dL (0.2-1.3) 09/11/18 14:30 AST 43 U/L (17-59) 09/11/18 14:30 ALT 20 U/L (7-56) 09/11/18 14:30 Alkaline Phosphatase 57 U/L (38-126) 09/11/18 14:30 Total Protein 7.6 g/dL (5.8-8.3) 09/11/18 14:30 Albumin 4.0 g/dL (3.0-4.8) 09/11/18 14:30 Globulin 3.6 gm/dL 09/11/18 14:30 Albumin/Globulin Ratio 1.1 (1.1-1.8) 09/11/18 14:30 Lipase 20 U/L (23-300) L 09/11/18 14:30 Urine Color Yellow (YELLOW) 09/11/18 17:04 Urine Appearance Clear (CLEAR) 09/11/18 17:04 Urine pH 7.0 (4.7-8.0) 09/11/18 17:04 Ur Specific [place] 1.010 (1.005-1.035) 09/11/18 17:04 Urine Protein Negative mg/dL (<30 mg/dL) 09/11/18 17:04 Urine Glucose (UA) Negative mg/dL (NEGATIVE) 09/11/18 17:04 Urine Ketones Negative mg/dL (NEGATIVE) 09/11/18 17:04 Urine Blood Trace-intact (NEGATIVE) H 09/11/18 17:04 Urine Nitrate Negative (NEGATIVE) 09/11/18 17:04 Urine Bilirubin Negative (NEGATIVE) 09/11/18 17:04 Urine Urobilinogen 0.2 E.U./dL (<1 E.U./dL) 09/11/18 17:04 Ur Leukocyte Esterase Negative Edie/uL (NEGATIVE) 09/11/18 17:04 Urine RBC 5 - 10 /hpf (0-2) H 09/11/18 17:04 Urine WBC 2 - 5 /hpf (0-6) 09/11/18 17:04 Ur Epithelial Cells 6 - 8 /hpf (0-5) H 09/11/18 17:04 - RAD Interpretation Radiology Orders: 09/11/18 13:48 ABD 2 VIEWS (FLAT/UP OR DECUB) [RAD] Stat - Medication Orders Current Medication Orders: Sodium Chloride (Sodium Chloride 0.9%) 1,000 mls @ 999 mls/hr IV .Q1H1M STA Stop: 09/11/18 19:06 Last Admin: 09/11/18 18:21 Dose: 999 mls/hr eMAR Start Stop Document 09/11/18 18:21 KV (Rec: 09/11/18 18:21 KV [facility] [id number]) Intravenous Solution Start Date 09/11/18 Start Time 18:21 Discontinued Medications Sodium Chloride (Sodium Chloride 0.9%) 1,000 mls @ 1,000 mls/hr IV .Q1H STA Stop: 09/11/18 14:47 Last Admin: 09/11/18 14:13 Dose: 1,000 mls/hr eMAR Start Stop Document 09/11/18 14:13 KV (Rec: 09/11/18 14:13 KV [facility] [id number]) Intravenous Solution Start Date 09/11/18 Start Time 14:13 Metoclopramide HCl (Reglan) 10 mg IVP STAT STA Stop: 09/11/18 13:49 Last Admin: 09/11/18 14:13 Dose: 10 mg IVP Administration Document 09/11/18 14:13 KV (Rec: 09/11/18 14:13 KV [facility] [id number]) Charges for Administration # of IVP Administrations 1 Ondansetron HCl (Zofran Inj) 4 mg IVP STAT STA Stop: 09/11/18 18:07 Last Admin: 09/11/18 18:21 Dose: 4 mg IVP Administration Document 09/11/18 18:21 KV (Rec: 09/11/18 18:21 KV [facility] [id number]) Charges for Administration # of IVP Administrations 1 - Scribe Statement The provider has reviewed the documentation as recorded by the Joseibe Eddie Davis. All medical record entries made by the Joseibdev were at my direction and personally dictated by me. I have reviewed the chart and agree that the record accurately reflects my personal performance of the history, physical exam, medical decision making, and the department course for this patient. I have also personally directed, reviewed, and agree with the discharge instructions and disposition. Disposition/Present on Arrival - Present on Arrival Any Indicators Present on Arrival: No History of DVT/PE: No History of Uncontrolled Diabetes: No Urinary Catheter: No History of Decub. Ulcer: No History Surgical Site Infection Following: None - Disposition Have Diagnosis and Disposition been Completed?: Yes Diagnosis: Abdominal pain, Gastroparesis, Vomiting Disposition Time: 19:45 Condition: STABLE Discharge Instructions (ExitCare): Gastroparesis (Delayed Gastric Emptying) Referrals: Rebeca Gimenez MD [Medical Doctor] - Follow up with primary Forms: [employer] (Persian)
[2018-09-11 19:45] VITALS: BP 112/69; PULSE 63; TEMP 98.5; O2SAT 99
== END 2018-09-11 19:45 | disposition home or self-care (01) ==
LOC: ED 13:00
DX: K31.84 Gastroparesis (principal); E11.43 Type 2 diabetes mellitus with diabetic autonomic (poly)neuropathy; R11.2 Nausea with vomiting, unspecified; R10.9 Unspecified abdominal pain; E78.5 Hyperlipidemia, unspecified; I10 Essential (primary) hypertension
CPT/HCPCS: 74019; 80053; 81001; 82948; 83690; 83735; 85025; 87086; 96374; 96375; 99285; J2405; J2765; J7030

== ENCOUNTER 2018-10-06 14:53 | Observation (INO) | payer MEDICAID, OTHER ==
--- NOTE | 2018-10-06 15:22 | ED PDOC ---
Arrival/HPI - General Chief Complaint: GI Problem Historian: Patient - History of Present Illness Narrative History of Present Illness (Text): 10/06/18 15:22 A 53 year old male, whose past medical history includes hypertension, hyperlipidemia, diabetes type 2, and gastroparesis, presents to the emergency department complaining of having no bowel movement for 2 weeks and abdominal pain. Patient reports also experiencing loss of appetite, as every time he eats, he results in vomiting what he ate. Aslo describes intermittent chest pain. Denies shortness of breath. Denies hematemesis currently but states he has vomited blood in the past. Denies dark stools. 10/06/18 20:13 Past Medical History - Provider Review Nursing Documentation Reviewed: Yes - Infectious Disease Hx of Infectious Diseases: None - Tetanus Immunization Tetanus Immunization: Unknown - Cardiac Hx Cardiac Disorders: Yes (chest pain) Hx Hypertension: Yes Other/Comment: HTN. - Pulmonary Hx Respiratory Disorders: Yes Hx Asthma: Yes - Neurological Hx Neurological Disorder: No - HEENT Hx HEENT Disorder: No - Renal Hx Renal Disorder: No - Endocrine/Metabolic Hx Endocrine Disorders: Yes Hx Diabetes Mellitus Type 2: Yes - Hematological/Oncological Hx Blood Disorders: Yes Hx Cancer: Yes (stomach dx 3 yrs ago) Hx Chemotherapy: Yes (ongoing once a week) Other/Comment: completed radiation - Integumentary Hx Dermatological Disorder: Yes Other/Comment: multiple skin discolortions ble, dry skin both feet, thick hard dry toenails, healed scar x 2 right hand from old injury, discolored skin left hand - Musculoskeletal/Rheumatological Hx Musculoskeletal Disorders: No - Gastrointestinal Hx Gastrointestinal Disorders: Yes (weight loss, poor appetite) Hx Diverticulitis: Yes Other/Comment: gastroparesis, constipation, diverticulitis, chronic abd pain, duodenitis. pt has been only able to drink some water and soup the last 4 months - Genitourinary/Gynecological Hx Genitourinary Disorders: No - Psychiatric Hx Psychophysiologic Disorder: Yes Hx Anxiety: Yes Hx Depression: Yes Hx Substance Use: Yes (marijuana prn for abd pain) - Surgical History Hx Appendectomy: Yes (20 yrs ago) Hx Orthopedic Surgery: (pt denies knee sx) - Anesthesia Hx Anesthesia: Yes Hx Anesthesia Reactions: No Hx Malignant Hyperthermia: No - Suicidal Assessment Feels Threatened In Home Enviroment: No Family/Social History - Physician Review Nursing Documentation Reviewed: Yes Family/Social History: No Known Family HX Smoking Status: Never Smoked Hx Alcohol Use: Yes (stopped 10 yrs ago occ wine) Hx Substance Use: Yes (marijuana prn for abd pain) Substance used: weed for pain Amount: 1 Hx Substance Use Treatment: No Allergies/Home Meds Allergies/Adverse Reactions: Allergies No Known Allergies Allergy (Verified 10/06/18 14:58) Home Medications: Home Meds Medication Instructions Recorded Confirmed Polyethylene Glycol 3350 [Miralax] 17 gm PO PRN PRN 09/08/18 09/11/18 Review of Systems - Review of Systems Constitutional: Fatigue. absent: Fevers Eyes: absent: Vision Changes ENT: absent: Hearing Changes Respiratory: absent: SOB Cardiovascular: Chest Pain. absent: Palpitations Gastrointestinal: Abdominal Pain, Nausea, Vomiting. absent: Diarrhea, H ematochezia, Hematemesis Genitourinary Male: absent: Dysuria Musculoskeletal: absent: Back Pain Skin: absent: Rash Neurological: absent: Dizziness, Focal Weakness Endocrine: absent: Polyuria Hemo/Lymphatic: absent: Easy Bleeding Physical Exam - Physical Exam Narrative Physical Exam (Text): Head: Atraumatic. Normocephalic. Eyes: PERRL. EOMI. Conjunctivae are not pale. ENT: Mucous membranes are moist and intact. Oropharynx is clear and symmetric. Neck: Supple. Full ROM. No JVD. No lymphadenopathy. Cardiovascular: Regular rate. Regular rhythm. No murmurs, rubs, or gallops. Distal pulses are 2+ and symmetric. Pulmonary/Chest: No evidence of respiratory distress. Clear to auscultation bilaterally. No wheezing, rales or rhonchi. Abdominal: Distended but soft. Diffuse tenderness. No pulsatile masses. Back: No CVA tenderness. Rectal: no stool in rectal vault, no gross blood Extremities: No edema. No cyanosis. No clubbing. Full range of motion in all extremities. No calf tenderness. Skin: Skin is warm and dry. No petechiae. No purpura. Neurological: Alert, awake, and oriented. Motor and sensory exam intacf. Psychiatric: Good eye contact. Normal interaction, affect, and behavior. Vital Signs Reviewed: Yes Vital Signs Temp Pulse Resp BP Pulse Ox 10/06/18 15:03 97.9 F 72 18 124/86 98 Temperature: Afebrile Appearance: Positive for: Uncomfortable Pain Distress: Moderate Mental Status: Positive for: Alert and Oriented X 3 Medical Decision Making ED Course and Treatment: 10/06/18 20:16 Patient's prior visits reviewed. On exam, axr NOT consistent with obstruction. No pleuritic pain. EKG and card isos unremarkable. IV fluids and zofran, pepcid given. Pain in abdomen briefly improved, now returns. Patient with multiple CT abdomen/pelvis in past. Risks of repeated CT's reviewed with patient. Current exam there are no peritoneal signs. Will admit for observation for chest pain, intractable abdominal pain. Patient refusing narcotic medication. Will thus admit for serial exams, iv hydration. case d/w Dr. Yap accepts admission to hospitalist service. - Scribe Statement The provider has reviewed the documentation as recorded by the Alphonse Cueto Provider Scribe Attestation: All medical record entries made by the Scribe were at my direction and personally dictated by me. I have reviewed the chart and agree that the record accurately reflects my personal performance of the history, physical exam, medical decision making, and the department course for this patient. I have also personally directed, reviewed, and agree with the discharge instructions and disposition. Disposition/Present on Arrival - Present on Arrival Any Indicators Present on Arrival: No History of DVT/PE: No History of Uncontrolled Diabetes: No Urinary Catheter: No History of Decub. Ulcer: No History Surgical Site Infection Following: None - Disposition Have Diagnosis and Disposition been Completed?: Yes Diagnosis: Chest pain, Intractable abdominal pain Disposition: HOSPITALIZED Disposition Time: 20:21 Patient Plan: Observation Condition: FAIR Discharge Instructions (ExitCare): Chest Pain (ED) Forms: [employer] ([place]ian)
[2018-10-06] MEDS ORDERED: Sodium Chloride 0.9% 1,000 ML IV STA (15:29)
[2018-10-06 16:18] LABS: BASO # 0.04 K/mm3 (0.0-2.0); BASO % 0.5 % (0.0-3.0); EOS # 0.1 (0.0-0.7); EOS % 1.5 % (1.5-5.0); HEMOGLOBIN 13.1 g/dL (14.0-18.0); INR 1.04; LYMPH # 1.4 (1.2-3.4); LYMPH % 18.6 % (22.0-35.0); MEAN CELL VOLUME 86.3 fl (80.0-105.0); MEAN CORPUSCULAR HEMOGLOBIN 29.4 pg (25.0-35.0); MEAN PLATELET VOLUME 11.2 fl (7.0-11.0); MONO # 0.4 (0.1-0.6); MONO % 5.3 % (1.0-6.0); PARTIAL THROMBOPLASTIN TIME 36.1 Seconds (26.9-38.3); PROTHROMBIN TIME 11.5 SECONDS (9.4-12.5); RBC 4.46 10^6/uL (3.5-6.1); RED CELL DISTRIBUTION WIDTH 13.3 % (11.5-14.5); WHITE BLOOD COUNT 7.5 10^3/uL (4.5-11.0)
[2018-10-06 16:30] LABS: TROPONIN I < 0.01 ng/mL
[2018-10-06 16:42] LABS: ALB/GLOB RATIO 1.2 (1.1-1.8); ALBUMIN 3.7 g/dL (3.0-4.8); ALT/SGPT 17 U/L (7-56); AMYLASE 69 U/L (35-125); AST/SGOT 23 U/L (17-59); BLOOD UREA NITROGEN 18 mg/dL (7-21); GFR NON-AFRICAN AMERICAN > 60; LIPASE 60 U/L (23-300)
[2018-10-06 17:03] LABS: CK-MB 2.7 ng/mL (0.0-3.6)
--- NOTE | 2018-10-06 17:14 | RAD ---
Date of service: 10/06/2018 HISTORY: vomiting, no bowel movements for 2 weeks COMPARISON: Abdomen KUB 09/11/2018. FINDINGS: BOWEL: Nonobstructive bowel gas pattern identified. Prominent fecal loading is seen in the right hemicolon and is otherwise mild to minimal. No abnormal internal calcifications. Phlebolith like calcifications are reiterated at the inferior pelvic soft tissues. Bilateral psoas margins are obscured. BONES: Normal. OTHER FINDINGS: None. IMPRESSION: Nonobstructive bowel gas pattern. Prominent fecal loading right hemicolon with remainder significantly diminished in the interval. No abnormal intra-abdominal calcifications.
--- NOTE | 2018-10-06 20:54 | CP.PCM.HP ---
<Christofer Martinez - Last Filed: 10/07/18 04:56> History of Present Illness - History of Present Illness History of Present Illness: PGY1 Medicine History and Physical Exam Note for Dr. Yap 53yo M with PMH HTN, HLD, DMT2, and gastroparesis presents to [facility] ED due to no bowel movement x14 days and abdominal pain. Patient reports the pain is diffuse and comes in waves. Patient rates pain as 10/10 and non-radiating. Patient admits to associated non-bloody/non-bilious vomiting after each attempt he made to eat, and that he subsequently lost his appetite. Patient also complains of associated chest discomfort that comes with the abdominal pain (intermittent), however he is unable to pinpoint the pain, and says that it is "not as bad" as his abdominal pain. Patient otherwise denies headache, dizziness, fever, chills, shortness of breath, melena, hematochezia, diarrhea, lower extremity numbness, and/or weakness. PMH: HTN, HLD, DM2, gastritis and gastroparesis PSH: Appendectomy, knee surgery Social History: Admits to occasional cigarette & wine and smoke marijuana for pain Family History: Denied Medications: Noncompliant with medications Allergies: NKDA PMD: None - [facility] clinic Present on Admission - Present on Admission Any Indicators Present on Admission: No History of DVT/PE: No History of Uncontrolled Diabetes: No Urinary Catheter: No Decubitus Ulcer Present: No Review of Systems - Review of Systems All systems: reviewed and no additional remarkable complaints except (as per HPI) Past Patient History - Infectious Disease Hx of Infectious Diseases: None - Tetanus Immunizations Tetanus Immunization: Unknown - Past Medical History & Family History Past Medical History?: Yes - Past Social History Smoking Status: Never Smoked - CARDIAC Hx Cardiac Disorders: Yes (chest pain) Hx Hypertension: Yes Other/Comment: HTN. - PULMONARY Hx Respiratory Disorders: Yes Hx Asthma: Yes - NEUROLOGICAL Hx Neurological Disorder: No - HEENT Hx HEENT Problems: No - RENAL Hx Chronic Kidney Disease: No - ENDOCRINE/METABOLIC Hx Endocrine Disorders: Yes Hx Diabetes Mellitus Type 2: Yes - HEMATOLOGICAL/ONCOLOGICAL Hx Blood Disorders: Yes Hx Cancer: Yes (stomach dx 3 yrs ago) Hx Chemotherapy: Yes (ongoing once a week) Other/Comment: completed radiation - INTEGUMENTARY Hx Dermatological Problems: Yes Other/Comment: multiple skin discolortions ble, dry skin both feet, thick hard dry toenails, healed scar x 2 right hand from old injury, discolored skin left hand - MUSCULOSKELETAL/RHEUMATOLOGICAL Hx Musculoskeletal Disorders: No - GASTROINTESTINAL Hx Gastrointestinal Disorders: Yes (weight loss, poor appetite) Hx Diverticulitis: Yes Other/Comment: gastroparesis, constipation, diverticulitis, chronic abd pain, duodenitis. pt has been only able to drink some water and soup the last 4 months - GENITOURINARY/GYNECOLOGICAL Hx Genitourinary Disorders: No - PSYCHIATRIC Hx Psychophysiologic Disorder: Yes Hx Anxiety: Yes Hx Depression: Yes Hx Substance Use: Yes (marijuana prn for abd pain) - SURGICAL HISTORY Hx Appendectomy: Yes (20 yrs ago) Hx Orthopedic Surgery: (pt denies knee sx) - ANESTHESIA Hx Anesthesia: Yes Hx Anesthesia Reactions: No Hx Malignant Hyperthermia: No Meds Allergies/Adverse Reactions: Allergies Allergy/AdvReac Type Severity Reaction Status Date / Time No Known Allergies Allergy Verified 10/06/18 14:58 Physical Exam - Constitutional Appears: No Acute Distress Additional comments: Patient is crying - Head Exam Head Exam: ATRAUMATIC, NORMAL INSPECTION, NORMOCEPHALIC - Eye Exam Eye Exam: EOMI, Normal appearance, PERRL Pupil Exam: NORMAL ACCOMODATION - ENT Exam ENT Exam: Mucous Membranes Dry, Normal Exam - Respiratory Exam Respiratory Exam: Clear to Auscultation Bilateral, NORMAL BREATHING PATTERN. absent: Accessory Muscle Use, Chest Wall Tenderness, Decreased Breath Sounds, Prolonged Expiratory Phase, Rales, Rhonchi, Wheezes, Respiratory Distress - Cardiovascular Exam Cardiovascular Exam: REGULAR RHYTHM, +S1, +S2 - GI/Abdominal Exam GI & Abdominal Exam: Normal Bowel Sounds, Soft, Tenderness (diffuse). absent: Diminished Bowel Sounds, Distended, Firm, Guarding, Hyperactive Bowel Sounds, Rebound, Rigid - Extremities Exam Extremities exam: Positive for: full ROM, normal capillary refill, normal inspection, pedal pulses present. Negative for: calf tenderness, joint swelling, tenderness - Back Exam Back exam: NORMAL INSPECTION. absent: CVA tenderness (L), CVA tenderness (R), paraspinal tenderness - Neurological Exam Neurological exam: Alert, Oriented x3 - Psychiatric Exam Psychiatric exam: Depressed - Skin Skin Exam: Dry, Intact, Normal Color, Warm Results - Vital Signs Recent Vital Signs: Last Vital Signs Temp 97.9 F 10/06/18 15:03 Pulse 72 10/06/18 15:03 Resp 18 10/06/18 15:03 BP 124/86 10/06/18 15:03 Pulse Ox 98 10/06/18 15:03 - Labs Result Diagrams: 10/06/18 15:55 10/06/18 15:55 Labs: Laboratory Results - last 24 hr 10/06/18 10/06/18 10/06/18 15:55 15:55 15:55 WBC 7.5 RBC 4.46 Hgb 13.1 L Hct 38.5 L MCV 86.3 MCH 29.4 MCHC 34.0 RDW 13.3 Plt Count 226 MPV 11.2 H Neut % (Auto) 74.1 H Lymph % (Auto) 18.6 L [place] % (Auto) 5.3 Eos % (Auto) 1.5 Baso % (Auto) 0.5 Lymph # (Auto) 1.4 [place] # (Auto) 0.4 Eos # (Auto) 0.1 Baso # (Auto) 0.04 Absolute Neuts (auto) 5.59 PT 11.5 INR 1.04 APTT 36.1 Sodium 137 Potassium 3.8 Chloride 102 Carbon Dioxide 30 Anion Gap 9 L BUN 18 Creatinine 0.8 Est GFR ( Amer) > 60 Est GFR (Non-Af Amer) > 60 Random Glucose 175 H Calcium 9.0 Total Bilirubin 0.6 AST 23 ALT 17 Alkaline Phosphatase 67 Lactate Dehydrogenase 588 Total Creatine Kinase 266 H CK-MB (CK-2) 2.7 CK-MB (CK-2) % Cancelled Troponin I < 0.01 Total Protein 6.8 Albumin 3.7 Globulin 3.1 Albumin/Globulin Ratio 1.2 Amylase 69 Lipase 60 Assessment & Plan - Assessment and Plan (Free Text) Assessment: 53 M with PMH HTN, HLD, DM2, and gastroparesis presented to the [facility] ED for no bowel movement x14 days, abdominal pain and associated chest discomfort Abdominal Pain Likely 2/2 gastroparesis Likely 2/2 uncontrolled DM2 - Abd X-ray: nonobstructive bowel gas pattern. Prominent fecal loading right hemicolon with remainder significantly diminished in the interval. No abnormal intra-abdominal calcifications - Multiple episodes in past - NPO, will advance as tolerated - GI consulted (Dr. Ballard); recommendations appreciated - Avoiding narcotics as not to worsen gastroparesis - Miralax - Tap water enema - IVF: NS @ 100 - Reglan and zofran PRN - Check for Disimpaction. Disimpact as needed - Monitor Atypical Chest Pain ACS rule-out - F/U EKG Q6H x2 - Trop negative x1 - F/U Trops Q6H x2 - Monitor HTN - No home meds - Currently normotesnive 124/86 - IVF 100cc/hr - Will monitor DMT2 - 09/08/18 HgbA1C 11.3 - ISS coverage, Patient is NPO - Hypoglycemia protocol - Accu checks ACHS GI/DVT Ppx - Protonix and SCD Discussed with Dr. Marely Martinez PGY1 <Jud Yap - Last Filed: 10/07/18 06:39> Results - Vital Signs Recent Vital Signs: Last Vital Signs Temp 98.5 F 10/06/18 21:11 Pulse 61 10/07/18 06:00 Resp 20 10/06/18 22:09 BP 123/74 10/06/18 21:11 Pulse Ox 100 10/06/18 21:11 - Labs Result Diagrams: 10/06/18 15:55 10/06/18 15:55 Labs: Laboratory Results - last 24 hr 10/06/18 10/06/18 10/06/18 15:55 15:55 15:55 WBC 7.5 RBC 4.46 Hgb 13.1 L Hct 38.5 L MCV 86.3 MCH 29.4 MCHC 34.0 RDW 13.3 Plt Count 226 MPV 11.2 H Neut % (Auto) 74.1 H Lymph % (Auto) 18.6 L [place] % (Auto) 5.3 Eos % (Auto) 1.5 Baso % (Auto) 0.5 Lymph # (Auto) 1.4 [place] # (Auto) 0.4 Eos # (Auto) 0.1 Baso # (Auto) 0.04 Absolute Neuts (auto) 5.59 PT 11.5 INR 1.04 APTT 36.1 Sodium 137 Potassium 3.8 Chloride 102 Carbon Dioxide 30 Anion Gap 9 L BUN 18 Creatinine 0.8 Est GFR ( Amer) > 60 Est GFR (Non-Af Amer) > 60 POC Glucose (mg/dL) Random Glucose 175 H Calcium 9.0 Phosphorus Magnesium Total Bilirubin 0.6 AST 23 ALT 17 Alkaline Phosphatase 67 Lactate Dehydrogenase 588 Total Creatine Kinase 266 H CK-MB (CK-2) 2.7 CK-MB (CK-2) % Cancelled Troponin I < 0.01 Total Protein 6.8 Albumin 3.7 Globulin 3.1 Albumin/Globulin Ratio 1.2 Amylase 69 Lipase 60 TSH 3rd Generation 10/06/18 10/06/18 10/07/18 15:55 22:27 00:00 WBC RBC Hgb Hct MCV MCH MCHC RDW Plt Count MPV Neut % (Auto) Lymph % (Auto) [place] % (Auto) Eos % (Auto) Baso % (Auto) Lymph # (Auto) [place] # (Auto) Eos # (Auto) Baso # (Auto) Absolute Neuts (auto) PT INR APTT Sodium Potassium Chloride Carbon Dioxide Anion Gap BUN Creatinine Est GFR ( Amer) Est GFR (Non-Af Amer) POC Glucose (mg/dL) 63 L Random Glucose Calcium Phosphorus 3.5 Magnesium 1.7 Total Bilirubin AST ALT Alkaline Phosphatase Lactate Dehydrogenase Total Creatine Kinase CK-MB (CK-2) CK-MB (CK-2) % Troponin I < 0.01 Total Protein Albumin Globulin Albumin/Globulin Ratio Amylase Lipase TSH 3rd Generation 0.38 L 10/07/18 10/07/18 10/07/18 01:57 05:18 05:49 WBC RBC Hgb Hct MCV MCH MCHC RDW Plt Count MPV Neut % (Auto) Lymph % (Auto) [place] % (Auto) Eos % (Auto) Baso % (Auto) Lymph # (Auto) [place] # (Auto) Eos # (Auto) Baso # (Auto) Absolute Neuts (auto) PT INR APTT Sodium Potassium Chloride Carbon Dioxide Anion Gap BUN Creatinine Est GFR ( Amer) Est GFR (Non-Af Amer) POC Glucose (mg/dL) 65 53 L 142 H Random Glucose Calcium Phosphorus Magnesium Total Bilirubin AST ALT Alkaline Phosphatase Lactate Dehydrogenase Total Creatine Kinase CK-MB (CK-2) CK-MB (CK-2) % Troponin I Total Protein Albumin Globulin Albumin/Globulin Ratio Amylase Lipase TSH 3rd Generation Attending/Attestation - Attestation I have personally seen and examined this patient.: Yes I have fully participated in the care of the patient.: Yes I have reviewed all pertinent clinical information: Yes Notes (Text): 10/07/18 06:38 seen and examined. Discussed with resident. Exam significant for mild distress and suprapubic abdominal tendernes. A&P formulated with resident as above.
[2018-10-06] MEDS ORDERED: Sodium Chloride 0.9% 100 ML IV SCH (21:30)
[2018-10-06] MEDS ORDERED: Insulin Regular 1 UNITS/0.01 ML ML SC SCH (22:00)
[2018-10-06 22:56] LABS: TROPONIN I < 0.01 ng/mL
[2018-10-06 22:59] VITALS: BMI 30.1
[2018-10-06] MEDS: POLYETHYLENE GLYCOL 3350 17 GM/Dose PACKET PO SCH (23:08)
[2018-10-06] MEDS: Sodium Chloride 0.9% 1,000 ML IV SCH (23:33)
[2018-10-07] MEDS: Insulin Regular 1 UNITS/0.01 ML ML SC SCH ×4 (00:08→18:51)
[2018-10-07] MEDS: Dextrose 50% SYRINGE Inj (50 ml) IV PRN ×2 (05:26→18:45)
[2018-10-07] MEDS ORDERED: Pantoprazole 40 mg EC Tab PO SCH (06:00)
[2018-10-07] MEDS ORDERED: Morphine 2 mg/ml ISec IVP STA ×2 (06:13→09:38)
[2018-10-07 08:03] LABS: BASO # 0.03 K/mm3 (0.0-2.0); BASO % 0.5 % (0.0-3.0); EOS # 0.1 (0.0-0.7); EOS % 2.1 % (1.5-5.0); HEMOGLOBIN 12.7 g/dL (14.0-18.0); LYMPH # 1.4 (1.2-3.4); LYMPH % 24.5 % (22.0-35.0); MEAN CELL VOLUME 86.3 fl (80.0-105.0); MEAN CORPUSCULAR HEMOGLOBIN 28.5 pg (25.0-35.0); MEAN CORPUSCULAR HGB CONC 33.1 g/dl (31.0-37.0); MEAN PLATELET VOLUME 11.2 fl (7.0-11.0); MONO # 0.4 (0.1-0.6); MONO % 6.2 % (1.0-6.0); RBC 4.45 10^6/uL (3.5-6.1); RED CELL DISTRIBUTION WIDTH 13.4 % (11.5-14.5); WHITE BLOOD COUNT 5.7 10^3/uL (4.5-11.0)
[2018-10-07 08:24] LABS: ALBUMIN 3.1 g/dL (3.0-4.8); ALT/SGPT 14 U/L (7-56); AST/SGOT 24 U/L (17-59); BLOOD UREA NITROGEN 14 mg/dL (7-21); CALCIUM 8.3 mg/dL (8.4-10.5); GFR NON-AFRICAN AMERICAN > 60; HDL CHOLESTEROL 56 mg/dL (29-60)
[2018-10-07 08:28] LABS: LDL CHOLESTEROL 87 mg/dL (0-129); TROPONIN I < 0.01 ng/mL
[2018-10-07] MEDS ORDERED: Peg-Electrolyte Oral Soln 4L (Golytely) PO ONE (08:53)
[2018-10-07] MEDS: POLYETHYLENE GLYCOL 3350 17 GM/Dose PACKET PO SCH ×2 (09:47→17:31)
[2018-10-07] MEDS ORDERED: Mineral Oil Enema 135 ml RC ONE (12:00)
[2018-10-07] MEDS: Sodium Chloride 0.9% 1,000 ML IV SCH ×2 (12:24→20:00)
[2018-10-07] MEDS: Peg-Electrolyte Oral Soln 4L (Golytely) PO ONE ×2 (12:30→13:05)
--- NOTE | 2018-10-07 15:33 | CP.PCM.PN ---
<Joel Bolton - Last Filed: 10/07/18 15:22> Subjective - Date & Time of Evaluation Date of Evaluation: 10/07/18 Time of Evaluation: 15:22 - Subjective Subjective: PGY-1 Medicine Progress note for Dr. Cook Patient seen and examined at bedside. Patient is complaining of abdominal pain. He states that he vomited once last night. Denies fevers, chills, chest pain, or urinary symptoms. Objective - Vital Signs/Intake and Output Vital Signs (last 24 hours): Temp Pulse Resp BP Pulse Ox 98.2 F 58 L 20 132/79 99 10/07/18 08:38 10/07/18 10:00 10/07/18 08:38 10/07/18 08:38 10/07/18 08:38 Intake and Output: 10/07/18 10/07/18 06:59 18:59 Intake Total Balance - Medications Medications: Current Medications Dextrose (Dextrose 50% Inj) 0 ml IV STAT PRN; Protocol PRN Reason: Hypoglycemia Protocol Last Admin: 10/07/18 05:26 Dose: 50 ml Dextrose (Dextrose 5% In Water 1000 Ml) 1,000 mls @ 0 mls/hr IV .Q0M PRN; Protocol PRN Reason: Hypoglycemia Protocol Sodium Chloride (Sodium Chloride 0.9%) 1,000 mls @ 100 mls/hr IV .Q10H JOSEPHINE Last Admin: 10/07/18 12:24 Dose: 100 mls/hr Insulin Human Regular (Humulin R) 0 units SC Q6 JOSEPHINE; Protocol Last Admin: 10/07/18 13:11 Dose: Not Given Ketorolac Tromethamine (Toradol) 15 mg IVP Q6 PRN PRN Reason: Pain, moderate (4-7) Metoclopramide HCl (Reglan) 10 mg IVP Q6 JOSEPHINE Last Admin: 10/07/18 12:23 Dose: 10 mg Ondansetron HCl (Zofran Inj) 4 mg IVP Q6H PRN PRN Reason: Nausea/Vomiting Pantoprazole Sodium (Protonix Ec Tab) 40 mg PO 0600 JOSEPHINE Polyethylene Glycol (Miralax) 17 gm PO BID JOSEPHINE Last Admin: 10/07/18 09:47 Dose: 17 gm Sodium Phosphate (Fleet Enema) 135 ml RC STAT STA Stop: 10/07/18 15:17 - Labs Labs: 10/07/18 07:00 10/07/18 07:00 PT 11.5 SECONDS (9.4-12.5) 10/06/18 15:55 INR 1.04 10/06/18 15:55 APTT 36.1 Seconds (26.9-38.3) 10/06/18 15:55 - Additional Findings Additional findings: - Constitutional Appears: No Acute Distress Additional comments: Patient is crying - Head Exam Head Exam: ATRAUMATIC, NORMAL INSPECTION, NORMOCEPHALIC - Eye Exam Eye Exam: EOMI, Normal appearance, PERRL Pupil Exam: NORMAL ACCOMODATION - ENT Exam ENT Exam: Mucous Membranes Dry, Normal Exam - Respiratory Exam Respiratory Exam: Clear to Auscultation Bilateral, NORMAL BREATHING PATTERN. absent: Accessory Muscle Use, Chest Wall Tenderness, Decreased Breath Sounds, Prolonged Expiratory Phase, Rales, Rhonchi, Wheezes, Respiratory Distress - Cardiovascular Exam Cardiovascular Exam: REGULAR RHYTHM, +S1, +S2 - GI/Abdominal Exam GI & Abdominal Exam: Normal Bowel Sounds, Soft, Tenderness (diffuse). absent: Diminished Bowel Sounds, Distended, Firm, Guarding, Hyperactive Bowel Sounds, Rebound, Rigid - Extremities Exam Extremities exam: Positive for: full ROM, normal capillary refill, normal inspection, pedal pulses present. Negative for: calf tenderness, joint s welling, tenderness - Back Exam Back exam: NORMAL INSPECTION. absent: CVA tenderness (L), CVA tenderness (R), paraspinal tenderness - Neurological Exam Neurological exam: Alert, Oriented x3 - Psychiatric Exam Psychiatric exam: Depressed - Skin Skin Exam: Dry, Intact, Normal Color, Warm Assessment and Plan - Assessment and Plan (Free Text) Assessment: Patient is a 53 year old male with PMH HTN, HLD, DM2, and gastroparesis presenting with no bowel movement x14 days, abdominal pain. Plan: Abdominal Pain Likely 2/2 gastroparesis Likely 2/2 uncontrolled DM2 - Abd X-ray: nonobstructive bowel gas pattern. Prominent fecal loading right hemicolon with remainder significantly diminished in the interval. No abnormal intra-abdominal calcifications - NPO, will advance as tolerated - GI consulted (Dr. Ballard) - Avoid giving narcotics as not to worsen gastroparesis - Golytely - Miralax BID - Reglan 10mg Iv Q6 - Tap water enema, fleet mineral oil enema - IVF: NS @ 100 - Reglan and zofran PRN - Multiple episodes in past, nurse spoke to patient's spouse stating that he is malingering - Psychiatry consulted, Dr. Bello Atypical Chest Pain, ACS rule-out - Trop negative x3 - EKG: NSR, no ST changes Hypokalemia - Replete as needed - Continue to monitor DMT2 - 09/08/18 HgbA1C 11.3 - ISS coverage, Patient is NPO - Hypoglycemia protocol - Accuchecks ACHS GI/DVT Ppx - Protonix and SCD Patient seen and case discussed with attending, Dr. Joey Bolton, PGY-1 <Cherelle Cook - Last Filed: 10/07/18 16:01> Objective - Vital Signs/Intake and Output Vital Signs (last 24 hours): Temp Pulse Resp BP Pulse Ox 98.2 F 58 L 20 132/79 99 10/07/18 08:38 10/07/18 10:00 10/07/18 08:38 10/07/18 08:38 10/07/18 08:38 Intake and Output: 10/07/18 10/07/18 06:59 18:59 Intake Total Balance - Medications Medications: Current Medications Dextrose (Dextrose 50% Inj) 0 ml IV STAT PRN; Protocol PRN Reason: Hypoglycemia Protocol Last Admin: 10/07/18 05:26 Dose: 50 ml Dextrose (Dextrose 5% In Water 1000 Ml) 1,000 mls @ 0 mls/hr IV .Q0M PRN; Protocol PRN Reason: Hypoglycemia Protocol Sodium Chloride (Sodium Chloride 0.9%) 1,000 mls @ 100 mls/hr IV .Q10H JOSEPHINE Last Admin: 10/07/18 12:24 Dose: 100 mls/hr Insulin Human Regular (Humulin R) 0 units SC Q6 JOSEPHINE; Protocol Last Admin: 10/07/18 13:11 Dose: Not Given Ketorolac Tromethamine (Toradol) 15 mg IVP Q6 PRN PRN Reason: Pain, moderate (4-7) Metoclopramide HCl (Reglan) 10 mg IVP Q6 JOSEPHINE Last Admin: 10/07/18 12:23 Dose: 10 mg Ondansetron HCl (Zofran Inj) 4 mg IVP Q6H PRN PRN Reason: Nausea/Vomiting Pantoprazole Sodium (Protonix Ec Tab) 40 mg PO 0600 JOSEHPINE Polyethylene Glycol (Miralax) 17 gm PO BID JOSEPHINE Last Admin: 10/07/18 09:47 Dose: 17 gm - Labs Labs: 10/07/18 07:00 10/07/18 07:00 PT 11.5 SECONDS (9.4-12.5) 10/06/18 15:55 INR 1.04 10/06/18 15:55 APTT 36.1 Seconds (26.9-38.3) 10/06/18 15:55 Attending/Attestation - Attestation I have personally seen and examined this patient.: Yes I have fully participated in the care of the patient.: Yes I have reviewed all pertinent clinical information, including history, physical exam and plan: Yes Notes (Text): 10/07/18 15:58 Medical record note made by the resident after discussion with my direction and input after the patient was personally seen and examined by me. I have reviewed the chart and agree that the record accurately reflects by personal performance of the history, physical exam, data review, and medical decision-making, in the course for the patient. I have also personally directed the plan of care. 53 M with PMH HTN, HLD, DM2, and gastroparesis was admitted last night with abdominal pain and constipation. Abdominal X ray is negative for Obstruction,patient is getting Golyte Felix andFleet enema, TSH level is low, will get T4 and T 3 level. Patient is also behaving strange, will check urine toxicology for drug screen and will get Psych evaluation as he is intermittently crying loudly on the floor.
[2018-10-07 17:50] LABS: T3 0.95 ng/mL (0.97-1.69)
--- NOTE | 2018-10-07 19:54 | CARD ---
APPROVED REPORT Date of service: 10/06/2018 EKG Measurement Heart [id number] <Conclusion> Normal sinus rhythm Possible Anterior infarct, age undetermined Abnormal ECG
--- NOTE | 2018-10-07 20:43 | CON ---
DATE OF CONSULTATION: 10/07/2018 GASTROENTEROLOGY CONSULTATION REQUESTING PHYSICIAN: Dr. Wells. REASON FOR CONSULTATION: I have been asked to see this 53-year-old male with multiple [facility] admissions with known history of type 2 diabetes mellitus, hypertension, hyperlipidemia, chronic abdominal pain, and gastroparesis, who comes to the hospital with a 2-day history of diffuse abdominal pain. The patient admits to several episodes of vomiting. He has had opiate seeking behavior in the past. Plain x-ray of the abdomen showed increased stool in the right colon. The patient states that he has not had a bowel movement in 2 weeks. He is noncompliant with his MiraLax. PAST MEDICAL HISTORY: As above. Again, he has a history of type 2 diabetes mellitus, hypertension, hyperlipidemia, gastritis, gastroparesis, gastric cancer over 20 years ago treated with radiation therapy and chemotherapy. PAST SURGICAL HISTORY: Notable for appendectomy and knee surgery. SOCIAL HISTORY: The patient smokes up to half pack of cigarettes per day. Drinks wine on a regular basis and also smokes marijuana. FAMILY HISTORY: Noncontributory. MEDICATIONS: The patient is noncompliant with Reglan, PPI, and polyethylene glycol. REVIEW OF SYSTEMS: Fourteen-point review of systems is notable for diffuse abdominal pain and vomiting. PHYSICAL EXAMINATION: GENERAL: Middle-aged male, lying in bed, in no acute distress. VITAL SIGNS: Revealed a temperature of 98.2, blood pressure 132/79, heart rate of 59. HEENT: Reveals sclerae to be white. Conjunctivae pink. NECK: Supple. CHEST: Reveals lungs to be clear. HEART: Reveals a regular rate and rhythm. ABDOMEN: Soft. Mild diffuse tenderness. No rebound. No guarding. EXTREMITIES: Show no edema. LABORATORY DATA: Revealed a white blood cell count of 5.7, hemoglobin 12.7. Chemistries revealed a potassium of 3.1, blood sugar 110. AST, ALT, and alk phos were all normal. Amylase and lipase are normal. IMPRESSION: A 53-year-old male with chronic recurrent abdominal pain, history of constipation, gastroparesis, and ileus. The patient has had opiate seeking behavior in the past. RECOMMENDATIONS: 1. We will give the patient one gallon of GoLYTELY in an attempt to clear his bowels of the increased stool in the right colon. 2. The patient will need to continue MiraLax 17 g twice a day on a long-term basis. 3. Advance diet as tolerated Leodan Ballard MD
--- NOTE | 2018-10-07 22:43 | CARD ---
APPROVED REPORT Date of service: 10/07/2018 EKG Measurement Heart [id number] <Conclusion> Normal sinus rhythm Possible Septal infarct, age undetermined CCR Abnormal ECG
[2018-10-08] MEDS: Insulin Regular 1 UNITS/0.01 ML ML SC SCH ×3 (00:10→12:56)
[2018-10-08] MEDS ORDERED: Pantoprazole 40 mg EC Tab PO SCH (06:00)
[2018-10-08 08:44] VITALS: BP 156/82; RESP 20; TEMP 97.4; O2SAT 99
[2018-10-08] MEDS ORDERED: Potassium Chloride 40 MEQ in Dextrose 5%/0.45% NS 1,000 ML IV SCH (09:00)
[2018-10-08] MEDS: POLYETHYLENE GLYCOL 3350 17 GM/Dose PACKET PO SCH (09:24)
[2018-10-08 09:55] LABS: BASO # 0.03 K/mm3 (0.0-2.0); BASO % 0.5 % (0.0-3.0); EOS # 0.1 (0.0-0.7); EOS % 1.9 % (1.5-5.0); HEMOGLOBIN 13.4 g/dL (14.0-18.0); LYMPH # 1.4 (1.2-3.4); LYMPH % 22.5 % (22.0-35.0); MEAN CELL VOLUME 87.2 fl (80.0-105.0); MEAN CORPUSCULAR HEMOGLOBIN 29.1 pg (25.0-35.0); MEAN CORPUSCULAR HGB CONC 33.3 g/dl (31.0-37.0); MEAN PLATELET VOLUME 12.1 fl (7.0-11.0); MONO # 0.7 (0.1-0.6); MONO % 10.5 % (1.0-6.0); RBC 4.61 10^6/uL (3.5-6.1); RED CELL DISTRIBUTION WIDTH 13.4 % (11.5-14.5); WHITE BLOOD COUNT 6.4 10^3/uL (4.5-11.0)
[2018-10-08 10:02] LABS: ALB/GLOB RATIO 1.2 (1.1-1.8); ALBUMIN 3.7 g/dL (3.0-4.8); ALT/SGPT 20 U/L (7-56); AST/SGOT 27 U/L (17-59); BLOOD UREA NITROGEN 15 mg/dL (7-21); CALCIUM 9.1 mg/dL (8.4-10.5); GFR NON-AFRICAN AMERICAN > 60
--- NOTE | 2018-10-08 13:24 | CP.PCM.DIS ---
<Yun Richards - Last Filed: 10/08/18 20:57> Provider - Provider Date of Admission: 10/06/18 20:22 Attending physician: Violeta Rico MD Primary care physician: Rebeca Gimenez MD Consults: 10/06/18 21:32 Physician Consult Routine Comment: Consulting Provider: Leodan Ballard Consulting Physician: Leodan Ballard Reason for Consult: Abdominal pain, no BM x14 days 10/07/18 15:36 Physician Consult Routine Comment: Consulting Provider: Rebekah Bello Consulting Physician: Rebekah Bello Reason for Consult: Possible malingering, r/o underlying psychiatric illness 10/08/18 08:57 Diabetic Education Referral Routine Comment: Physician Instructions: Reason For Exam: a1c 11 Time Spent in preparation of Discharge (in minutes): 45 Diagnosis - Discharge Diagnosis (1) Abdominal pain Status: Acute Priority: Medium (2) Diabetes type 2, uncontrolled Status: Acute Priority: Medium (3) Gastroparesis Status: Acute Priority: Medium Hospital Course - Lab Results Lab Results: Most Recent Lab Values WBC 6.4 10^3/uL (4.5-11.0) 10/08/18 09:30 RBC 4.61 10^6/uL (3.5-6.1) 10/08/18 09:30 Hgb 13.4 g/dL (14.0-18.0) L 10/08/18 09:30 Hct 40.2 % (42.0-52.0) L 10/08/18 09:30 MCV 87.2 fl (80.0-105.0) 10/08/18 09:30 MCH 29.1 pg (25.0-35.0) 10/08/18 09:30 MCHC 33.3 g/dl (31.0-37.0) 10/08/18 09:30 RDW 13.4 % (11.5-14.5) 10/08/18 09:30 Plt Count 237 10^3/uL (120.0-450.0) 10/08/18 09:30 MPV 12.1 fl (7.0-11.0) H 10/08/18 09:30 Neut % (Auto) 64.6 % (50.0-68.0) 10/08/18 09:30 Lymph % (Auto) 22.5 % (22.0-35.0) 10/08/18 09:30 [place] % (Auto) 10.5 % (1.0-6.0) H 10/08/18 09:30 Eos % (Auto) 1.9 % (1.5-5.0) 10/08/18 09:30 Baso % (Auto) 0.5 % (0.0-3.0) 10/08/18 09:30 Lymph # (Auto) 1.4 (1.2-3.4) 10/08/18 09:30 [place] # (Auto) 0.7 (0.1-0.6) H 10/08/18 09:30 Eos # (Auto) 0.1 (0.0-0.7) 10/08/18 09:30 Baso # (Auto) 0.03 K/mm3 (0.0-2.0) 10/08/18 09:30 Absolute Neuts (auto) 4.15 (1.4-6.5) 10/08/18 09:30 PT 11.5 SECONDS (9.4-12.5) 10/06/18 15:55 INR 1.04 10/06/18 15:55 APTT 36.1 Seconds (26.9-38.3) 10/06/18 15:55 Sodium 139 mmol/L (132-148) 10/08/18 09:30 Potassium 4.0 mmol/L (3.6-5.0) 10/08/18 09:30 Chloride 105 mmol/L (98-107) 10/08/18 09:30 Carbon Dioxide 24 mmol/L (21-33) 10/08/18 09:30 Anion Gap 14 (10-20) 10/08/18 09:30 BUN 15 mg/dL (7-21) 10/08/18 09:30 Creatinine 0.7 mg/dl (0.8-1.5) L 10/08/18 09:30 Est GFR ( Amer) > 60 10/08/18 09:30 Est GFR (Non-Af Amer) > 60 10/08/18 09:30 POC Glucose (mg/dL) 178 mg/dL (65-110) H 10/08/18 11:47 Random Glucose 76 mg/dL (70-110) 10/08/18 09:30 Calcium 9.1 mg/dL (8.4-10.5) 10/08/18 09:30 Phosphorus 3.5 mg/dL (2.5-4.5) 10/06/18 22:27 Magnesium 1.7 mg/dL (1.7-2.2) 10/06/18 22:27 Total Bilirubin 1.1 mg/dL (0.2-1.3) 10/08/18 09:30 AST 27 U/L (17-59) 10/08/18 09:30 ALT 20 U/L (7-56) 10/08/18 09:30 Alkaline Phosphatase 71 U/L (38-126) 10/08/18 09:30 Lactate Dehydrogenase 588 U/L (333-699) 10/06/18 15:55 Total Creatine Kinase 266 U/L (35-230) H 10/06/18 15:55 CK-MB (CK-2) 2.7 ng/mL (0.0-3.6) 10/06/18 15:55 CK-MB (CK-2) % Cancelled 10/06/18 15:55 Troponin I < 0.01 ng/mL 10/07/18 07:00 Total Protein 6.8 g/dL (5.8-8.3) 10/08/18 09:30 Albumin 3.7 g/dL (3.0-4.8) 10/08/18 09:30 Globulin 3.1 gm/dL 10/08/18 09:30 Albumin/Globulin Ratio 1.2 (1.1-1.8) 10/08/18 09:30 Triglycerides 40 mg/dL (35-160) 10/07/18 07:00 Cholesterol 162 mg/dL (130-200) 10/07/18 07:00 LDL Cholesterol Direct 87 mg/dL (0-129) 10/07/18 07:00 HDL Cholesterol 56 mg/dL (29-60) 10/07/18 07:00 Amylase 69 U/L (35-125) 10/06/18 15:55 Lipase 60 U/L (23-300) 10/06/18 15:55 Free T4 1.40 ng/dL (0.78-2.19) 10/08/18 05:45 Thyroxine (T4) 6.5 ug/dL (5.5-11.0) 10/07/18 07:00 Total T3 0.95 ng/mL (0.97-1.69) L 10/07/18 07:00 TSH 3rd Generation 0.38 mIU/mL (0.46-4.68) L 10/06/18 15:55 - Hospital Course Hospital Course: On Admission: Pt is 53yo M with PMH of HTN, HLD, DMT2, and gastroparesis presents to [facility] ED due to c/o no bowel movement x14 days and abdominal pain. Patient reported the pain was diffuse and intermittent. Patient rated pain as 10/10 and non- radiating. Patient reported to associated non-bloody/non-bilious vomiting after each attempt he made to eat, and that he subsequently lost his appetite. Patient also complains of associated chest discomfort that comes with the abdominal pain (intermittent), however he is unable to pinpoint the pain, and says that it is "not as bad" as his abdominal pain. On Hospital Course: Patient was worked up to rule-out Atypical Chest Pain due ACS. EKG & Troponins were negative x3. Patient was placed on NPO and given Miralax, as well as Reglan and zofran PRN. GI was consulted for the pt who recommended the pt to have golytely to assist with BMs. Patient received Golytely and Fleet enema. Abdominal X-ray showed non-obstructive bowel gas pattern, prominent fecal loading in right hemicolon with the remainder significantly diminished in the interval. No abnormal intra-abdominal calcifications. Patient was also behaving strangely, intermittently crying loudly on the floor and in the bathroom. Urine toxicology for drug screen was negative and he was cleared by Psych evaluation. Pt stated that he feels better now after he how BMs and states that his abdominal pain is better. Pt at this time states that he is no longer having any complaints. Pt was started on a diet and tolerating the diet well without any abdominal pain. GI cleared the pt for discharge upon tolerating diet. Pt expresses interest in going home and the medical decision was made to d/c the pt home. The pt expressed understanding and agreement with medical plan for discharge. All of the pts questions and concerns were addressed prior to d/c. Patient provided with discharge instructions, follow-up appointments reviewed, medications reviewed and discussed. Patient verbalized understanding of all information provided. In addition, he was told to return to the emergency department if she had any recurring or new concerning symptoms. Discharge Exam - Head Exam Head Exam: ATRAUMATIC, NORMAL INSPECTION, NORMOCEPHALIC - Eye Exam Eye Exam: EOMI, Normal appearance, PERRL - Respiratory Exam Respiratory Exam: Clear to PA & Lateral, NORMAL BREATHING PATTERN, UNREMARKABLE. absent: Accessory Muscle Use, Rales, Rhonchi, Wheezes, Respiratory Distress, Stridor - Cardiovascular Exam Cardiovascular Exam: RRR, +S1, +S2. absent: Gallop, Rubs - GI/Abdominal Exam GI & Abdominal Exam: Normal Bowel Sounds, Soft, Unremarkable. absent: Distended, Firm, Guarding, Rigid, Tenderness - Extremities Exam Extremities exam: normal capillary refill, normal inspection, pedal pulses present - Back Exam Back exam: NORMAL INSPECTION. absent: CVA tenderness (L), CVA tenderness (R) - Neurological Exam Neurological exam: Alert, Normal Gait, Oriented x3 - Psychiatric Exam Psychiatric exam: Normal Affect, Normal Mood - Skin Skin Exam: Dry, Normal Color, Warm Discharge Plan - Discharge Medications Prescriptions: Metoclopramide [Reglan] 5 mg PO DAILY #1 tab Polyethylene Glycol 3350 [Miralax] 17 gm PO BID #30 packet - Follow Up Plan Condition: FAIR Disposition: HOME/ ROUTINE Instructions: Constipation, Adult (DC), Acute Abdomen (Belly Pain), Adult (DC), Chest Pain (DC) Additional Instructions: Please follow-up with your PMD, Dr Gimenez, within 7 days of discharge. Please follow-up with Dr. Ballard, your adult specialist to help you with your constipation, in addition, you have a history of gastric cancer which should be followed up with a gastroenergologist. You should eat frequent small meals. Please avoid percocet or marijuana and other narcotics as this will worsen your constipation/gastroparesis. If you have pain, please use over the counter pain relievers such as motrin. Please continue your current insulin regimen and continue to monitor your sugars. Your diabetes needs to be controlled - please follow the instructions of the nursing educator in regards to your diet. Please take Miralax (polyethylene glycol) 17g every 12 hours NEEDED to treat your constipation. If symptoms return, please go to your nearest emergency department. Referrals: Leodan Ballard MD [Staff Provider] - 1 Week Rebeca Gimenez MD [Primary Care Provider] - 1 Week <Violeta Rico - Last Filed: 10/09/18 07:01> Provider - Provider Date of Admission: 10/06/18 20:22 Attending physician: Violeta Rico MD Primary care physician: Rebeca Gimenez MD Consults: 10/06/18 21:32 Physician Consult Routine Comment: Consulting Provider: Leodan Ballard Consulting Physician: Leodan Ballard Reason for Consult: Abdominal pain, no BM x14 days 10/07/18 15:36 Physician Consult Routine Comment: Consulting Provider: Rebekah Bello Consulting Physician: Rebekah Bello Reason for Consult: Possible malingering, r/o underlying psychiatric illness 10/08/18 08:57 Diabetic Education Referral Routine Comment: Physician Instructions: Reason For Exam: a1c 11 Hospital Course - Lab Results Lab Results: Most Recent Lab Values WBC 6.4 10^3/uL (4.5-11.0) 10/08/18 09:30 RBC 4.61 10^6/uL (3.5-6.1) 10/08/18 09:30 Hgb 13.4 g/dL (14.0-18.0) L 10/08/18 09:30 Hct 40.2 % (42.0-52.0) L 10/08/18 09:30 MCV 87.2 fl (80.0-105.0) 10/08/18 09:30 MCH 29.1 pg (25.0-35.0) 10/08/18 09:30 MCHC 33.3 g/dl (31.0-37.0) 10/08/18 09:30 RDW 13.4 % (11.5-14.5) 10/08/18 09:30 Plt Count 237 10^3/uL (120.0-450.0) 10/08/18 09:30 MPV 12.1 fl (7.0-11.0) H 10/08/18 09:30 Neut % (Auto) 64.6 % (50.0-68.0) 10/08/18 09:30 Lymph % (Auto) 22.5 % (22.0-35.0) 10/08/18 09:30 [place] % (Auto) 10.5 % (1.0-6.0) H 10/08/18 09:30 Eos % (Auto) 1.9 % (1.5-5.0) 10/08/18 09:30 Baso % (Auto) 0.5 % (0.0-3.0) 10/08/18 09:30 Lymph # (Auto) 1.4 (1.2-3.4) 10/08/18 09:30 [place] # (Auto) 0.7 (0.1-0.6) H 10/08/18 09:30 Eos # (Auto) 0.1 (0.0-0.7) 10/08/18 09:30 Baso # (Auto) 0.03 K/mm3 (0.0-2.0) 10/08/18 09:30 Absolute Neuts (auto) 4.15 (1.4-6.5) 10/08/18 09:30 PT 11.5 SECONDS (9.4-12.5) 10/06/18 15:55 INR 1.04 10/06/18 15:55 APTT 36.1 Seconds (26.9-38.3) 10/06/18 15:55 Sodium 139 mmol/L (132-148) 10/08/18 09:30 Potassium 4.0 mmol/L (3.6-5.0) 10/08/18 09:30 Chloride 105 mmol/L (98-107) 10/08/18 09:30 Carbon Dioxide 24 mmol/L (21-33) 10/08/18 09:30 Anion Gap 14 (10-20) 10/08/18 09:30 BUN 15 mg/dL (7-21) 10/08/18 09:30 Creatinine 0.7 mg/dl (0.8-1.5) L 10/08/18 09:30 Est GFR ( Amer) > 60 10/08/18 09:30 Est GFR (Non-Af Amer) > 60 10/08/18 09:30 POC Glucose (mg/dL) 178 mg/dL (65-110) H 10/08/18 11:47 Random Glucose 76 mg/dL (70-110) 10/08/18 09:30 Calcium 9.1 mg/dL (8.4-10.5) 10/08/18 09:30 Phosphorus 3.5 mg/dL (2.5-4.5) 10/06/18 22:27 Magnesium 1.7 mg/dL (1.7-2.2) 10/06/18 22:27 Total Bilirubin 1.1 mg/dL (0.2-1.3) 10/08/18 09:30 AST 27 U/L (17-59) 10/08/18 09:30 ALT 20 U/L (7-56) 10/08/18 09:30 Alkaline Phosphatase 71 U/L (38-126) 10/08/18 09:30 Lactate Dehydrogenase 588 U/L (333-699) 10/06/18 15:55 Total Creatine Kinase 266 U/L (35-230) H 10/06/18 15:55 CK-MB (CK-2) 2.7 ng/mL (0.0-3.6) 10/06/18 15:55 CK-MB (CK-2) % Cancelled 10/06/18 15:55 Troponin I < 0.01 ng/mL 10/07/18 07:00 Total Protein 6.8 g/dL (5.8-8.3) 10/08/18 09:30 Albumin 3.7 g/dL (3.0-4.8) 10/08/18 09:30 Globulin 3.1 gm/dL 10/08/18 09:30 Albumin/Globulin Ratio 1.2 (1.1-1.8) 10/08/18 09:30 Triglycerides 40 mg/dL (35-160) 10/07/18 07:00 Cholesterol 162 mg/dL (130-200) 10/07/18 07:00 LDL Cholesterol Direct 87 mg/dL (0-129) 10/07/18 07:00 HDL Cholesterol 56 mg/dL (29-60) 10/07/18 07:00 Amylase 69 U/L (35-125) 10/06/18 15:55 Lipase 60 U/L (23-300) 10/06/18 15:55 Free T4 1.40 ng/dL (0.78-2.19) 10/08/18 05:45 Thyroxine (T4) 6.5 ug/dL (5.5-11.0) 10/07/18 07:00 Total T3 0.95 ng/mL (0.97-1.69) L 10/07/18 07:00 TSH 3rd Generation 0.38 mIU/mL (0.46-4.68) L 10/06/18 15:55 Attending/Attestation - Attestation I have personally seen and examined this patient.: Yes I have fully participated in the care of the patient.: Yes I have reviewed all pertinent clinical information, including history, physical exam and plan: Yes Notes (Text): 10/08/18 53 year old male with past medical history of hypertension, diabetes, and gastroparesis who presented with nausea, vomiting, abdominal pain and constipation. Symptoms likely secondary to gastroparesis. He was seen by GI and given golytely and fleet enema. He reported bowel movement and improvement of symptoms. Diet was advanced which he tolerated. He was seen by psychiatry today who recommended outpatient follow up. Patient is discharged home to follow up with [facility]. Continue with miralax as needed. Counselled on opioid abstinence. Follow up with psychiatry. Violeta Rico MD Hospitalist.
[2018-10-08 13:35] VITALS: PULSE 69
--- NOTE | 2018-10-08 14:10 | PN ---
DATE: 10/08/2018 SUBJECTIVE: The patient feels better after having multiple bowel movements with GoLYTELY. He denies any further abdominal pain. He denies nausea, vomiting. He is tolerating a liquid diet. OBJECTIVE: VITAL SIGNS: Reveal temperature of 97.4, blood pressure 156/82, heart rate of 65. HEENT: Reveal sclerae to be white. Conjunctivae pink. NECK: Supple. CHEST: Lungs are clear. HEART: Reveals regular rate and rhythm. ABDOMEN: Soft, nontender. No mass. EXTREMITIES: Show no edema. LABORATORY DATA: Reveal white blood cell count 6.4, hemoglobin 13.4. Chemistries reveal a blood sugar of 178. IMPRESSION: This is a 53-year-old male with chronic recurrent abdominal pain, chronic constipation, diabetes mellitus with right colon fecal retention and abdominal pain. The patient had a nice catharsis with GoLYTELY. He is noncompliant with medications. RECOMMENDATIONS: The patient is instructed on the importance of continuing MiraLax 17 g twice a day. Leodan Ballard MD
--- NOTE | 2018-10-08 18:09 | CON ---
DATE OF CONSULTATION: 10/08/2018 HISTORY OF PRESENT ILLNESS: In short, the patient is a 53-year-old male with not known previous psychiatric history. The patient was admitted on the medical side for chest and abdominal pain. Psych consult was called for evaluation of possible malingering. The patient was seen and examined today. The patient presented to be alert and oriented, was observed walking without any difficulties. The patient does not present to be in any distress. The patient reported that he came to the hospital because of the abdominal pain, and the abdominal pain will start at 1 o'clock at the morning and continue all day long, but by 11:30, it is getting better. The patient reported that at times he feels overwhelmed, but denied feeling of hopelessness or helplessness, and denied feeling depressed. The patient reported that he lives in [place] with his , his parents, and uncle, who he is taking care of. The patient reported that he had never been admitted to the psychiatric inpatient unit. Denied history of suicidal attempts. The patient reported that at present moment he wants to be discharged, and the patient denied that he has any thoughts of harming himself or others. The patient denied hearing voices, denied seeing things, denied paranoid ideation. The patient reported that he has followup appointment with Dr. Bello and he saw her twice , but this typewriter repairer is not sure most likely what the patient meant is a [facility] clinic. PHYSICAL EXAMINATION: VITAL SIGNS: Reviewed. Temperature 97.4, pulse is 65, blood pressure 156/82, respirations 26, and saturation is 99. MEDICATIONS: Reviewed. The patient is on dextrose, Humulin, Toradol, Reglan, Zofran, Protonix, MiraLax, and potassium chloride. LABORATORY DATA: Labs reviewed. Hemoglobin and hematocrit are 13.4 and 40.2. Coagulation reviewed. Chemistry reviewed. The patient reported that he smokes marijuana, and he applied for medical marijuana, which the patient feels that is going to help him with abdominal pain. MENTAL STATUS EXAMINATION: The patient presented to be alert, oriented, pleasant, cooperative. Fair eye contact. Speech is normal rate, tone, quality, and quantity. The patient described his mood as being okay. Affect was constricted. Thought process concrete. Thought content, the patient denied visual, auditory, or tactile hallucinations. Denied paranoid ideation. The patient does not present to be psychotic. The patient adamantly denied thoughts of harming himself or others. Denied intent or plan. Insight and judgment seemed to be fair. Impulses are well controlled. IMPRESSION: In regard of the question medical team is raising about malingering, this typewriter repairer is not sure. The patient has history of diabetes and gastroparesis. The patient is not demanding to be on any pain medications. The patient is not in any distress and malingering is diagnosis of , most likely the patient has mood due to general medical condition. PLAN: Continue current management. Continue current medication. There is no need for any psychotropic medications. The patient wants to go back home. Please provide information about neighborhood clinic, but the patient said that he is going to see Dr. Bello in the clinic. The patient presented to be not psychotic, not depressed and denied any thoughts of harming himself or others. The patient posed no imminent danger to self or others. Should you have any questions, give me a call back. Meanwhile, this typewriter repairer will sign off. Thank you very much for letting me participate in care of your patient. Kim Grace MD
== END 2018-10-08 14:32 | disposition home or self-care (01) ==
LOC: ED 14:53 → ERH 20:22 → 3RNO 22:10
PROVIDERS: ADMIT Internal Medicine; ATTEND Internal Medicine
DX: R10.9 Unspecified abdominal pain (principal); E11.65 Type 2 diabetes mellitus with hyperglycemia; E11.43 Type 2 diabetes mellitus with diabetic autonomic (poly)neuropathy; K31.84 Gastroparesis; E78.5 Hyperlipidemia, unspecified; F12.90 Cannabis use, unspecified, uncomplicated; F17.210 Nicotine dependence, cigarettes, uncomplicated; G89.29 Other chronic pain; I10 Essential (primary) hypertension; J45.909 Unspecified asthma, uncomplicated; K59.09 Other constipation; Z85.028 Personal history of other malignant neoplasm of stomach; Z92.21 Personal history of antineoplastic chemotherapy; Z92.3 Personal history of irradiation; Z90.49 Acquired absence of other specified parts of digestive tract; Z91.14 Patient's other noncompliance with medication regimen; Z91.19 Patient's noncompliance with other medical treatment and regimen; R07.89 Other chest pain; E87.6 Hypokalemia
CPT/HCPCS: 36415; 74019; 80053; 80061; 82150; 82550; 82553; 82948; 83615; 83690; 83735; 84100; 84436; 84439; 84443; 84480; 84484; 85025; 85610; 85730; 93005; 96374; 96375; 96376; 99285; C9113; G0378; J1885; J2270; J2405; J2765; J7030; J7042

== ENCOUNTER 2018-11-04 16:44 | Emergency (ER) | payer MEDICAID, OTHER ==
[2018-11-04 16:51] VITALS: BMI 27.3
--- NOTE | 2018-11-04 17:07 | ED PDOC ---
Arrival/HPI - General Chief Complaint: Abdominal Pain Time Seen by Provider: 11/04/18 16:55 - History of Present Illness Narrative History of Present Illness (Text): 11/04/18 17:03 53 yo male, well known to er, and [facility] with abdominal pain. pt state has had pain since yesterday. pt states he "gets chemo" for his liver ca he has had for 20 years. upon further questioning, pt cannot elucidate who his doctors are and states "he gets it in the hosptial". pt has had numerous ct scans in recent months not showing such lesions. at bedside, pt speaks to his fiance, pt fiance states pt does not receive chemo and has no known recent tx. . noted numerous admission, pt with noted malingering behavior. 11/04/18 17:20 Past Medical History - Infectious Disease Hx of Infectious Diseases: None - Tetanus Immunization Tetanus Immunization: Unknown - Cardiac Hx Cardiac Disorders: Yes (chest pain) Hx Hypertension: Yes Other/Comment: HTN. - Pulmonary Hx Respiratory Disorders: Yes Hx Asthma: Yes - Neurological Hx Neurological Disorder: No - HEENT Hx HEENT Disorder: No - Renal Hx Renal Disorder: No - Endocrine/Metabolic Hx Endocrine Disorders: Yes Hx Diabetes Mellitus Type 2: Yes - Hematological/Oncological Hx Blood Disorders: Yes Hx Cancer: Yes (stomach dx 3 yrs ago) Hx Chemotherapy: Yes (ongoing once a week) Other/Comment: completed radiation - Integumentary Hx Dermatological Disorder: Yes Other/Comment: multiple skin discolortions ble, dry skin both feet, thick hard dry toenails, healed scar x 2 right hand from old injury, discolored skin left hand - Musculoskeletal/Rheumatological Hx Musculoskeletal Disorders: No - Gastrointestinal Hx Gastrointestinal Disorders: Yes (weight loss, poor appetite) Hx Diverticulitis: Yes Other/Comment: gastroparesis, constipation, diverticulitis, chronic abd pain, duodenitis. pt has been only able to drink some water and soup the last 4 months - Genitourinary/Gynecological Hx Genitourinary Disorders: No - Psychiatric Hx Psychophysiologic Disorder: Yes Hx Anxiety: Yes Hx Depression: Yes Hx Substance Use: Yes (marijuana prn for abd pain) - Surgical History Hx Appendectomy: Yes (20 yrs ago) Hx Orthopedic Surgery: (pt denies knee sx) - Anesthesia Hx Anesthesia: Yes Hx Anesthesia Reactions: No Hx Malignant Hyperthermia: No - Suicidal Assessment Feels Threatened In Home Enviroment: No Family/Social History Family/Social History: Unknown Family HX Smoking Status: Never Smoked Hx Alcohol Use: Yes (stopped 10 yrs ago occ wine) Hx Substance Use: Yes (marijuana prn for abd pain) Substance used: weed for pain Amount: 1 Hx Substance Use Treatment: No Allergies/Home Meds Allergies/Adverse Reactions: Allergies No Known Allergies Allergy (Verified 10/06/18 14:58) Review of Systems - Review of Systems Constitutional: Normal Eyes: Normal ENT: Normal Respiratory: Normal Cardiovascular: Normal Gastrointestinal: Abdominal Pain, Nausea, Vomiting Genitourinary Male: Normal Musculoskeletal: Normal Skin: Normal Neurological: Normal Endocrine: Normal Hemo/Lymphatic: Normal Psychiatric: Normal Physical Exam Temperature: Afebrile Blood Pressure: Normal Pulse: Regular Respiratory Rate: Normal Appearance: Positive for: Well-Appearing, Non-Toxic, Comfortable Pain Distress: None Mental Status: Positive for: Alert and Oriented X 3 - Systems Exam Head: Present: Atraumatic, Normocephalic Pupils: Present: PERRL Extroacular Muscles: Present: EOMI Conjunctiva: Present: Normal Mouth: Present: Moist Mucous Membranes Neck: Present: Normal Range of Motion Respiratory/Chest: Present: Clear to Auscultation, Good Air Exchange. No: Res piratory Distress, Accessory Muscle Use Cardiovascular: Present: Regular Rate and Rhythm, Normal S1, S2. No: Murmurs Abdomen: No: Tenderness, Distention, Peritoneal Signs, Rebound, Guarding Back: Present: Normal Inspection Upper Extremity: Present: Normal Inspection. No: Cyanosis, Edema Lower Extremity: Present: Normal Inspection. No: Edema Neurological: Present: GCS=15, CN II-XII Intact, Speech Normal Skin: Present: Warm, Dry, Normal Color. No: Rashes Psychiatric: Present: Alert, Oriented x 3, Normal Insight, Normal Concentration Medical Decision Making ED Course and Treatment: 11/04/18 17:05 well known to er, malingering behavior. Disposition/Present on Arrival - Present on Arrival History of DVT/PE: No History of Uncontrolled Diabetes: No Urinary Catheter: No History of Decub. Ulcer: No History Surgical Site Infection Following: None - Disposition Diagnosis: Malingering, Abdominal pain Disposition: HOME/ ROUTINE Disposition Time: 16:45 Condition: STABLE Discharge Instructions (ExitCare): Acute Abdomen (Belly Pain), Adult (DC) Additional Instructions: follow up in clinic. return to er with worsneing symptoms or concerns. please follow up in clinci. Referrals: Shahnaz Kelsey MD [Medical Doctor] - Follow up with primary Forms: [employer] (Lithuanian)
[2018-11-04 17:23] VITALS: BP 121/81; PULSE 69; RESP 18; TEMP 98.7; O2SAT 96
--- NOTE | 2018-11-05 15:21 | CARD ---
APPROVED REPORT Date of service: 11/04/2018 EKG Measurement Heart [id number] <Conclusion> Sinus bradycardia Otherwise normal ECG
== END 2018-11-04 17:15 | disposition home or self-care (01) ==
LOC: ED 16:44
DX: R10.9 Unspecified abdominal pain (principal); Z76.5 Malingerer [conscious simulation]; E11.9 Type 2 diabetes mellitus without complications; I10 Essential (primary) hypertension